=== PATIENT | female | born 1930 | race Caucasian/White ===

== ENCOUNTER 2017-04-01 01:17 | Inpatient (IN) ==
[2017-04-01] MEDS ORDERED: HALOPERIDOL 5 MG/ML INJECTION IM ONE ×2 (01:39→02:15)
--- OUTSIDE RECORDS SUMMARY | 2017-04-01 01:39 | External Medical Summary | Continuity of Care Document ---
:[address] [facility]. Care Team Providers Name Role Phone Flako Frederick Primary Care Physician Unavailable Insurance Providers Payer Name Policy Number Subscriber Name Relationship MEDICARE INPT & OUTPT [id number] ROSANA FOSTER SELF / SAME PATIENT [facility] [id number] ROSANA FOSTER SELF / SAME PATIENT Advance Directives Directive Response Recorded Date/Time Advance Directives: Yes 09/29/14 0:41am Type: Durable Power of Business Info Consultant 09/29/14 0:41am Chief Complaint and Reason for Visit Reason for Visit ER ADMIT Problems Medical Problems Problem Onset Date Status Dehydration Unknown Active Vertigo Unknown Active Atrial fibrillation Unknown Active Dehydration Unknown Active Headache Unknown Active Weakness Unknown Active Bradycardia Unknown Active Dizziness 05/06/14 Active Near syncope 05/06/14 Active Dementia 05/06/14 Active Closed left hip fracture Unknown Active Medications Medication Dose Route Sig Days/Qty Instructions Order Discontinued Status Date Date Hctz/Triamtere 1 CAP ORAL Twice 07/02/07 Discontin ne (Dyazide) daily ued 25 MG/37.5 MG CAPSULE Levothyroxine 38 MCG ORAL 0700 07/02/07 Discontin Sodium ued (Synthroid) TABLET Metoprolol 25 MG ORAL Once 07/02/07 Discontin Succinate daily ued (Toprol Xl) [address] Clopidogrel 75 MG ORAL Once 07/02/07 Discontin Bisulfate daily ued (Plavix) TABLET Potassium 10 MEQ ORAL Three 07/02/07 Discontin Chloride times ued (Potassium daily Chloride 10MEQ) 10 MEQ CAPSULE.SA Atorvastatin 10 MG ORAL Once 07/02/07 Discontin (Lipitor) 10 daily ued MG TABLET Fish Oil (Fish 1,000 ORAL Once 07/31/13 Discontin Oil MG daily ued Concentrate) 1,000 MG SGL Hctz/Triamtere 2 CAP ORAL Twice 07/06/07 Discontin ne (Dyazide) daily ued 25 MG/37.5 MG CAPSULE Levothyroxine 0.088 ORAL Once Active (Synthroid) MG daily 0.088 MG TABLET Metoprolol 25 MG ORAL Once 02/21/14 Discontin Succinate daily ued (Toprol Xl) [address] Clopidogrel 75 MG ORAL Once 05/06/14 Discontin Bisulfate daily ued (Plavix) TABLET Potassium 10 MEQ ORAL Three W/ MEALS 07/06/07 Discontin Chloride times ued (Klor-Con) 10 daily MEQ TABLET.SA Atorvastatin 10 MG ORAL At Active (Lipitor) 10 bedtim MG TABLET e Calcium 1 TAB ORAL Twice PRN 07/06/07 Discontin Carbonate/Famo daily ued tidine (Pepcid Complete) 800 MG/10 MG CTB Calcium 2 TAB ORAL Once 07/31/13 Discontin Carbonate/Anna daily ued min D (Caltrate 600 + D 600 Mg-200 Iu) 1 TAB TAB Acetaminophen 500 MG ORAL As 07/31/13 Discontin (Tylenol Extra needed ued Strength) 500 MG TABLET Multivitamin 1 TAB ORAL Once 07/31/13 Discontin And Minerals4 daily ued (Centrum Multivitamin) 1 TAB TAB Cephalexin 500 MG ORAL As TAKES BEFORE 02/11/14 Discontin (Keflex *) 500 needed DENTAL AND ued MG CAPSULE OTHER INVASIVE PROCEDURES Hctz/Triamtere 2 CAP ORAL QAM 07/28/07 Discontin ne (Dyazide) ued 25 MG/37.5 MG CAPSULE Calcium 1 TAB ORAL Once 02/11/14 Discontin Carbonate/Famo daily ued tidine (Pepcid Complete) 800 MG/10 MG CTB Spironolactone 25 MG ORAL Once 07/31/13 Discontin (Aldactone daily ued 25MG) 25 MG TABLET Potassium 20 MEQ ORAL Once 07/28/07 Discontin Chloride daily ued (Kdur) 20 MEQ TABLET [DIAZIDE] MG ORAL QAM 07/28/07 Discontin ued Valsartan 80 MG ORAL Daily 07/31/13 Discontin (Diovan 80MG) at ued 80 MG TAB bedtim e Hctz/Triamtere 1 CAP ORAL QAM 02/19/14 Discontin ne (Dyazide) ued 25 MG/37.5 MG CAPSULE Diphenhydramin 25-50 ORAL QHS 08/09/08 Discontin e Hcl MG PRN ued (Benadryl) CAPSULE Spironolactone 25 MG ORAL Once 10/04/14 Discontin (Aldactone) 25 daily ued MG TABLET Gabapentin At Active (Neurontin) bedtim 100 MG CAPSULE e Losartan 25 MG ORAL At 02/21/14 Discontin (Cozaar) 25 MG bedtim ued TABLET e Aspirin 81 MG ORAL Once a Hold per 10/04/14 Discontin (Aspirin day patient ued Chewable) 81 request for MG TAB.CHEW choice of OTC or fill as prescription. Multivitamin 1 CAP ORAL Once a 05/06/14 Discontin (Multiple day ued Vitamins) 1 CAP CAP Fish Oil 500 500 MG ORAL Once a 05/06/14 Discontin MG CAP day ued Calcium 1 CAP ORAL Once a 05/06/14 Discontin Carbonate/Anna day ued min D (Calcium) 1 CAP CAP FLUoxetine 20 MG ORAL Once a Active (PROzac) 20 MG day CAPSULE Apixaban 5 MG ORAL Twice 10/04/14 Discontin (Eliquis) 5 MG daily ued TABLET Dronedarone 400 MG ORAL Twice Active (Multaq) 400 daily MG TABLET with food Rivastigmine 4.6 MG TRANSDERM Once a Active (Exelon Patch) AL day 4.6 MG PATCH Magnesium 30 ML ORAL PRN Active Hydroxide/Mine Consti ral (Milk Of pation Magnesia/Biologics Specialist al Oil 30 Ml) 30 ML LIQ Acetaminophen 325 MG ORAL Four Hold per Active (Tylenol) 325 times patient MG TABLET a day request for PRN choice of OTC Pain or fill as prescription. Meclizine 12.5 ORAL PRN Active (Antivert) MG DIZZIN 12.5 MG TABLET ESS Multivitamin 1 TAB ORAL Active And [id number] (Multiple Vitamin W/Minerals No Iron) 1 TAB TAB Meclizine 25 MG ORAL TID 30 Qty TAKE FOR 08/04/ 07/31/13 Discontin (Antivert) 25 PRN DIZZINESS 13 ued MG TABLET Ondansetron 4 MG ORAL Q 6 HR 14 Qty TAKE FOR 08/04/ / Discontin (Zofran) 4 MG PRN NAUSEA 13 ued TABLET Meclizine 25 MG ORAL Three 10 Qty 02/21/ 03/04/14 Discontin (Antivert) 25 times 14 ued MG TABLET daily Aspirin/Calciu 325 MG ORAL Twice 60 Qty 10/04/ Active m daily 15 Carb/Magnesium (Aspirin Buffered) 325 MG HYDROcodone/Ac 1 ORAL Every 15 Qty 10/04/ Active etaminophen UDTAB four 15 (Dunlevy) 5 hours MG/325 MG PRN TABLET PAIN Calcium 500 MG ORAL Once a 30 Qty 10/04/ Active Carbonate day 15 (Oscal 500 Tablets) 500 MG TABLET Ascorbic Acid 500 MG ORAL Once a 30 Qty 10/04/ Active (Vitamin C) day 15 500 MG TABLET Apixaban 5 MG ORAL Twice 60 Qty DO NOT TAKE 10/04/ Active (Eliquis) 5 MG daily UNTIL OCTOBER 17 TABLET 10. 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 You should not take your eliquis for 10 days after surgery. You should restart your eliquis on October 12. Appointment Information Follow-up with PCP in 1 week. Follow-up with Ortho per their recommendations. Plan of Care Discharge Date 10/04/14 1:32pm Disposition [facility]FER [facility] Instructions/Education Provided Hydrocodone/Acetaminophen (By mouth) Aspirin (By mouth) Ascorbic Acid (Vitamin C) (By mouth) Calcium/Vitamin D Supplement (By mouth) Apixaban (By mouth) Open Reduction and Internal Fixation of a Hip Fracture (DC) Forms Provided Certification-Skilled Care Transfer,Interagency-Physician Prescriptions See Medications Section Referrals [facility]ACTICE 10/10/14 [facility] 10/17/14 [facility] Mcke[facility] Functional Status Query Response Date Recorded Paralysis: N October 03, 2014 8:37pm Steady Gait: Y October 04, 2014 9:05am Weakness: Y March 10, 2007 3:23pm 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 Equal: Y October 04, 2014 9:05am Contractures: N October 03, 2014 8:37pm Alert: Y October 26, 2004 5:27pm Oriented x4: N October 03, 2014 8:37pm Disoriented/Confused: Y October 04, 2014 9:05am Drowsy: N October 03, 2014 8:37pm Lethargic: N October 03, 2014 8:37pm Unresponsive: N October 03, 2014 8:37pm Allergies, Adverse Reactions, Alerts Allergen Type Severity Reaction Status Last Updated SULFA (sulfonamide) Allergy Unknown Active 03/02/14 Trimethoprim Allergy Unknown Active 03/02/14 Sulfamethoxazole Allergy Unknown Active 03/02/14 VIOXX Allergy Unknown Active 11/22/11 Immunizations Name Date Given Type Tetanus More than 5 years ago Historical Hepatitis N Historical Vital Signs Vital Reading Collection Date/Time Result Blood Pressure 10/04/14 11:59am 147/70 Blood Pressure Source 10/04/14 11:59am SI Patient Temperature 10/04/14 11:59am 97.0 Temperature Source 10/04/14 11:59am O Respiratory Rate 10/04/14 11:59am 24 Pulse Rate 10/04/14 11:59am 84 Pulse Location 10/04/14 11:59am DYN Bedside Pulse Oximetry 10/04/14 11:59am 97 Height 10/04/14 11:59am 170.2 cm Height 10/04/14 11:59am 5 ft 7 in Weight 10/04/14 11:59am 65.6 kg Weight 10/04/14 11:59am 144.3 lb Body Mass Index 10/04/14 11:59am 22.6 Procedures No Known History of Procedures. Results Test Source Date Result Interp. Ref. Range Comments Basophils # 09/28/14 0.0 0.0 - 0.2 Basophils % 09/28/14 0.6 % 0.0 - 2.0 Eosinophils # 09/28/14 0.1 0.0 - 0.7 Eosinophils % 09/28/14 1.0 % 0 - 4.0 Granulocytes # 09/28/14 4.2 1.4 - 6.5 Granulocytes (%) 09/28/14 61.9 % 42.2 - 75.2 Lymphocytes # 09/28/14 1.7 1.2 - 3.4 Lymphocytes % 09/28/14 25.5 % 20.0 - 51.0 Monocytes # 09/28/14 0.7 H 0.1 - 0.6 Monocytes % 09/28/14 10.3 % H 1.7 - 9.3 Alanine 09/28/14 31 U/L 9 - 52 Aminotransferase (ALT/SGPT) Albumin 09/28/14 3.8 gm/dL 3.5 - 5.0 Alkaline Phosphatase 09/28/14 120 U/L 50 - 136 Aspartate Amino Transf 09/28/14 34 U/L 15 - 37 (AST/SGOT) Calcium Adjusted for 09/28/14 9.4 mg/dL 8.4 - 10.2 Albumin Serum Total Protein 09/28/14 6.5 gm/dL 6.4 - 8.2 Total Bilirubin 09/28/14 0.5 mg/dL 0.0 - 1.0 Urine Appearance 09/28/14 CLEAR - Urine Bacteria 09/28/14 PRESENT H NOT PRESENT - Urine Bilirubin 09/28/14 NEGATIVE NEGATIVE - Urine Blood 09/28/14 NEGATIVE NEGATIVE - Urine Collection Type 09/28/14 CATHETER - Urine Color 09/28/14 YELLOW - Urine Epithelial Cells 09/28/14 RARE /lpf FEW - Urine Glucose 09/28/14 NEGATIVE mg/dL - Urine Ketones 09/28/14 NEGATIVE NEGATIVE - Urine Leukocyte 09/28/14 NEGATIVE NEGATIVE - Esterase Urine Nitrate 09/28/14 NEGATIVE NEGATIVE - Urine Protein 09/28/14 NEGATIVE mg/dL NEGATIVE - Urine RBC 09/28/14 0-3 /hpf 0 - 3 Urine Specific [place] 09/28/14 1.020 1.001 - 1.035 Urine Total Volume 09/28/14 12 mL - Urine Urobilinogen 09/28/14 NORMAL NORMAL - Urine WBC 09/28/14 0-3 /hpf 0 - 3 Urine pH 09/28/14 5.0 5.0 - 8.0 INR International 09/29/14 1.1 0.8 - 3.0 Normalized Ratio Prothrombin Time 09/29/14 12.8 SECONDS 9.7 - 12.8 Hematocrit 10/04/14 31.6 % L 37.0 - 47.0 Hemoglobin 10/04/14 10.8 g/dl L 12.5 - 16.0 Mean Corpuscular 10/04/14 31 pg 27.0 - 31.0 Hemoglobin Mean Corpuscular 10/04/14 34 g/dl 33.0 - 37.0 Hemoglobin Concent Mean Corpuscular Volume 10/04/14 90 fl 80.0 - 100.0 Mean Platelet Volume 10/04/14 10.4 fl 7.4 - 10.4 Platelet Count 10/04/14 148 K/mm3 130 - 400 Red Blood Count 10/04/14 3.50 M/mm3 L 4.10 - 5.30 Red Cell Distribution 10/04/14 13.9 % 11.5 - 14.5 Width White Blood Count 10/04/14 7.4 K/mm3 4.8 - 10.8 Anion Gap 10/04/14 5 mmol/L L 7 - 16 Blood Urea Nitrogen 10/04/14 26 mg/dL H 7 - 17 Calcium Level 10/04/14 8.4 mg/dL 8.4 - 10.2 Carbon Dioxide Level 10/04/14 29 mmol/L 22 - 30 Chloride Level 10/04/14 100 mmol/L 98 - 107 Creatinine 10/04/14 0.84 mg/dL 0.52 - 1.04 Estimated GFR ( 10/04/14 77 - Mauritian) Estimated GFR 10/04/14 64 - (Non- Glucose Level 10/04/14 103 mg/dL 74 - 106 Potassium Level 10/04/14 3.6 mmol/L 3.4 - 5.0 Sodium Level 10/04/14 134 mmol/L L 137 - 145 Basophils # 09/28/14 0.0 0.0 - 0.2 Basophils % 09/28/14 0.6 % 0.0 - 2.0 Eosinophils # 09/28/14 0.1 0.0 - 0.7 Eosinophils % 09/28/14 1.0 % 0 - 4.0 Granulocytes # 09/28/14 4.2 1.4 - 6.5 Granulocytes (%) 09/28/14 61.9 % 42.2 - 75.2 Lymphocytes # 09/28/14 1.7 1.2 - 3.4 Lymphocytes % 09/28/14 25.5 % 20.0 - 51.0 Monocytes # 09/28/14 0.7 H 0.1 - 0.6 Monocytes % 09/28/14 10.3 % H 1.7 - 9.3 Alanine 09/28/14 31 U/L 9 - 52 Aminotransferase (ALT/SGPT) Albumin 09/28/14 3.8 gm/dL 3.5 - 5.0 Alkaline Phosphatase 09/28/14 120 U/L 50 - 136 Aspartate Amino Transf 09/28/14 34 U/L 15 - 37 (AST/SGOT) Calcium Adjusted for 09/28/14 9.4 mg/dL 8.4 - 10.2 Albumin Serum Total Protein 09/28/14 6.5 gm/dL 6.4 - 8.2 Total Bilirubin 09/28/14 0.5 mg/dL 0.0 - 1.0 Urine Appearance 09/28/14 CLEAR - Urine Bacteria 09/28/14 PRESENT H NOT PRESENT - Urine Bilirubin 09/28/14 NEGATIVE NEGATIVE - Urine Blood 09/28/14 NEGATIVE NEGATIVE - Urine Collection Type 09/28/14 CATHETER - Urine Color 09/28/14 YELLOW - Urine Epithelial Cells 09/28/14 RARE /lpf FEW - Urine Glucose 09/28/14 NEGATIVE mg/dL - Urine Ketones 09/28/14 NEGATIVE NEGATIVE - Urine Leukocyte 09/28/14 NEGATIVE NEGATIVE - Esterase Urine Nitrate 09/28/14 NEGATIVE NEGATIVE - Urine Protein 09/28/14 NEGATIVE mg/dL NEGATIVE - Urine RBC 09/28/14 0-3 /hpf 0 - 3 Urine Specific [place] 09/28/14 1.020 1.001 - 1.035 Urine Total Volume 09/28/14 12 mL - Urine Urobilinogen 09/28/14 NORMAL NORMAL - Urine WBC 09/28/14 0-3 /hpf 0 - 3 Urine pH 09/28/14 5.0 5.0 - 8.0 INR International 09/29/14 1.1 0.8 - 3.0 Normalized Ratio Prothrombin Time 09/29/14 12.8 SECONDS 9.7 - 12.8 Hematocrit 10/04/14 31.6 % L 37.0 - 47.0 Hemoglobin 10/04/14 10.8 g/dl L 12.5 - 16.0 Mean Corpuscular 10/04/14 31 pg 27.0 - 31.0 Hemoglobin Mean Corpuscular 10/04/14 34 g/dl 33.0 - 37.0 Hemoglobin Concent Mean Corpuscular Volume 10/04/14 90 fl 80.0 - 100.0 Mean Platelet Volume 10/04/14 10.4 fl 7.4 - 10.4 Platelet Count 10/04/14 148 K/mm3 130 - 400 Red Blood Count 10/04/14 3.50 M/mm3 L 4.10 - 5.30 Red Cell Distribution 10/04/14 13.9 % 11.5 - 14.5 Width White Blood Count 10/04/14 7.4 K/mm3 4.8 - 10.8 Anion Gap 10/04/14 5 mmol/L L 7 - 16 Blood Urea Nitrogen 10/04/14 26 mg/dL H 7 - 17 Calcium Level 10/04/14 8.4 mg/dL 8.4 - 10.2 Carbon Dioxide Level 10/04/14 29 mmol/L 22 - 30 Chloride Level 10/04/14 100 mmol/L 98 - 107 Creatinine 10/04/14 0.84 mg/dL 0.52 - 1.04 Estimated GFR ( 10/04/14 77 - Mauritian) Estimated GFR 10/04/14 64 - (Non- Glucose Level 10/04/14 103 mg/dL 74 - 106 Potassium Level 10/04/14 3.6 mmol/L 3.4 - 5.0 Sodium Level 10/04/14 134 mmol/L L 137 - 145 Cholesterol Level 09/08/14 148 mg/dL 120 - 200 Cholesterol Risk Factor 09/08/14 1.7 - Free Thyroxine 09/08/14 1.06 ng/dL 0.78 - 2.19 HDL Cholesterol 09/08/14 84 mg/dL - LDL Cholesterol, 09/08/14 55 mg/dL - Calculated Thyroid Stimulating 09/08/14 2.190 uIU/mL 0.465 - 4.680 Hormone (TSH) Triglycerides Level 09/08/14 45 mg/dL - Hemoglobin A1c 09/08/14 5.6 % - Encounters Encounter Location Date/Time Discharged Inpatient [facility] 10/04/14 1:32pm Discharged Emergency [facility] 09/28/14 9:13pm Registered Clinical [facility] 09/28/14 6:12pm Registered Clinical [facility] 09/08/14 9:54am Recent Diagnosis Dehydration Vertigo Atrial fibrillation Dehydration Headache Weakness Bradycardia Dizziness Near syncope Dementia Closed left hip fracture
--- OUTSIDE RECORDS SUMMARY | 2017-04-01 01:39 | External Medical Summary | Continuity of Care Document ---
:1930 Author Organization [facility]. Care Team Providers Name Role Phone Flako Frederick Primary Care Physician Insurance Providers Payer Name Policy Number Subscriber Name Relationship MEDICARE INPT & OUTPT [id number] ROSANA FOSTER SELF / SAME PATIENT [facility] [id number] ROSANA FOSTER SELF / SAME PATIENT Advance Directives Directive Response Recorded Date/Time Advance Directives: Yes 07/10/16 9:58pm Type: Durable Power of [employer] Program Director 07/10/16 9:58pm Chief Complaint and Reason for Visit Reason for Visit ER ADMIT Problems Active Medical Problems Problem Onset Date Recorded Date Status Dehydration Unknown 11/22/11 Active Vertigo Unknown 08/04/12 Active Atrial fibrillation Unknown 07/31/13 Active Dehydration Unknown 02/11/14 Active Headache Unknown 02/11/14 Active Weakness Unknown 02/11/14 Active Bradycardia Unknown 02/19/14 Active Dizziness 05/06/14 02/21/14 Active Near syncope 05/06/14 03/02/14 Active Dementia 05/06/14 05/06/14 Active Closed left hip fracture Unknown 09/28/14 Active Bronchitis Unknown 05/19/15 Active Cough Unknown 05/19/15 Active Hip pain Unknown 11/08/15 Active Fall Unknown 11/08/15 Active Elevated blood pressure Unknown 11/08/15 Resolved Contusion, hip Unknown 11/28/15 Resolved Atrial fibrillation Unknown 04/01/16 Resolved Contusion of lower back Unknown 05/18/16 Active Hematoma Unknown 05/19/16 Active Personal history of fall Unknown 07/05/16 Active Change in mental status Unknown 07/10/16 Active Medications Current Home Medications Medication Dose Units Route Directions Days/Qty Instructions Start Date Acetaminophen 650 MG PO Twice daily Hold per patient (Tylenol) 325 MG request for TABLET choice of OTC or fill as prescription. Acetaminophen 1-2 TAB PO Every four hours Hold per patient (Tylenol) 325 MG PRN PAIN request for TABLET choice of OTC or fill as prescription. Amiodarone 200 MG PO Twice daily (Cordarone) 200 MG TABLET Amoxicillin 2,000 MG PO One Time Only (Amoxil*) 500 MG PRN DENTAL CAPSULE PROCEDURE Aspirin (Aspirin 81 MG PO Once daily Hold per patient Chewable) 81 MG request for TAB.CHEW choice of OTC or fill as prescription. Atorvastatin 10 MG PO Once daily (Lipitor) 10 MG TABLET FLUoxetine 20 MG PO Once a day (PROzac) 20 MG CAPSULE Gabapentin 100 MG PO Once a day PRN (Neurontin) 100 ANXIETY/AGITATIO MG CAPSULE N HYDROcodone/Aceta 1-2 TAB PO Q4-6 HR PRN PAIN 15 05/18/16 minophen ([place]) 5 MG/325 MG TABLET HYDROcodone/Aceta 1-2 TAB PO Q4-6 HR PRN Pain 20 07/12/16 minophen ([place]) 5 MG/325 MG TABLET Haloperidol 0.5 MG PO QD PRN PRN (Haldol) 0.5 MG AGITATION TABLET Haloperidol 1 MG PO Once a day (Haldol) 1 MG TABLET Levothyroxine 0.075 MG PO Once a day at 7 (Synthroid) 0.075 AM (Fasting) MG TABLET Magnesium 30 ML PO As needed PRN Hydroxide (Milk constipation of Magnesia) 400 MG/5 ML JAYDA Meclizine 12.5 MG PO Twice daily PRN (Antivert) 12.5 DIZZINESS MG TABLET QUEtiapine 25 MG PO .[Q HS] 30 07/12/16 (SEROquel) 25 MG TABLET QUEtiapine 12.5 MG PO Twice daily 60 At breakfast and 07/12/16 (SEROquel) 25 MG noon TABLET Rivastigmine 13.3 MG TD Once a day (Exelon Patch) 13.3 MG PATCH amLODIPine 5 MG PO Once a day 30 07/12/16 (Norvasc) 5 MG TABLET traZODone 50 MG PO Daily at bedtime 30 07/12/16 (Desyrel) 50 MG PRN Insomnia TABLET Past Home Medications Medication Directions Ordered Status Acetaminophen (Tylenol Extra As needed Unknown Discontinued Strength) 500 Mg Tablet Tablet, 500 Mg Po Acetaminophen (Tylenol) 325 Mg Four times a day PRN Pain Unknown Discontinued Tablet Tablet, 325 Mg Po Apixaban (Eliquis) 5 Mg Tablet Twice daily 10/04/14 Discontinued Tablet, 5 Mg Po Apixaban (Eliquis) 5 Mg Tablet Twice daily Unknown Discontinued Tablet, 5 Mg Po Ascorbic Acid (Vitamin C) 500 Mg Unknown Discontinued Tablet Tablet, 500 Mg Po Ascorbic Acid (Vitamin C) 500 Mg Once a day 10/04/14 Discontinued Tablet Tablet, 500 Mg Po Aspirin (Aspirin Chewable) 81 Mg Once a day Unknown Discontinued Tab.chew Tab.chew, 81 Mg Po Aspirin, Buffered (Aspirin Twice daily 10/04/14 Discontinued Buffered) 325 Mg Tablet Tablet, 325 Mg Po Atorvastatin (Lipitor) 10 Mg At bedtime Unknown Discontinued Tablet Tablet, 10 Mg Po Atorvastatin (Lipitor) 10 Mg Once daily Unknown Discontinued Tablet Tablet, 10 Mg Po Biotin/Ca/Ca Pantothenate/Cr Once daily Unknown Discontinued (Centrum Multivitamin) 1 Tab Tab Tab, 1 Tab Po Benzonatate (Tessalon Perles) 100 Every eight hours as needed 05/19/15 Discontinued Mg Sgl Sgl, 100 Mg Po PRN cough Calcium Carbonate (Oscal 500) 500 Once a day 10/04/14 Discontinued Mg Tablet Tablet, 500 Mg Po Calcium Carbonate/Famotidine Once daily Unknown Discontinued (Pepcid Complete) 800 Mg/10 Mg Ctb Ctb, 1 Tab Po Calcium Carbonate/Famotidine Twice daily Unknown Discontinued (Pepcid Complete) 800 Mg/10 Mg Ctb Ctb, 1 Tab Po Calcium Carbonate/Vitamin D Once a day Unknown Discontinued (Calcium) 1 Cap Cap Cap, 1 Cap Po Calcium Carbonate/Vitamin D3 Once daily Unknown Discontinued (Caltrate D) 600 Mg/200 Units Tablet Tablet, 2 Tab Po Cephalexin (Keflex *) 500 Mg As needed Unknown Discontinued Capsule Capsule, 500 Mg Po Clopidogrel Bisulfate (Plavix) Once daily Unknown Discontinued Tablet Tablet, 75 Mg Po Clopidogrel Bisulfate (Plavix) Once daily Unknown Discontinued Tablet Tablet, 75 Mg Po [Diazide] , Mg Po QAM Unknown Discontinued Diphenhydramine Hcl (Benadryl) QHS PRN Unknown Discontinued Capsule Capsule, 25-50 Mg Po Dronedarone (Multaq) 400 Mg Twice daily with food Unknown Discontinued Tablet Tablet, 400 Mg Po Fish Oil (Fish Oil Concentrate) Once daily Unknown Discontinued 1,000 Mg Sgl Sgl, 1,000 Mg Po Fish Oil 500 Mg Cap Cap, 500 Mg Once a day Unknown Discontinued Po Gabapentin (Neurontin) 100 Mg Once daily Unknown Discontinued Capsule Capsule, 100 Mg Po Gabapentin (Neurontin) 100 Mg At bedtime Unknown Discontinued Capsule Capsule, Hydrocodone/Acetaminophen ([place]) Every four hours PRN PAIN 10/04/14 Discontinued 5 Mg/325 Mg Tablet Tablet, 1 Udtab Po Haloperidol (Haldol) 1 Mg Tablet Every eight hours PRN Unknown Discontinued Tablet, 1 Mg Po AGITATION Hctz/Triamterene (Dyazide) 25 QAM Unknown Discontinued Mg/37.5 Mg Capsule Capsule, 1 Cap Po Hctz/Triamterene (Dyazide) 25 QAM Unknown Discontinued Mg/37.5 Mg Capsule Capsule, 2 Cap Po Hctz/Triamterene (Dyazide) 25 Twice daily Unknown Discontinued Mg/37.5 Mg Capsule Capsule, 2 Cap Po Hctz/Triamterene (Dyazide) 25 Twice daily Unknown Discontinued Mg/37.5 Mg Capsule Capsule, 1 Cap Po Levothyroxine (Synthroid) 0.088 Once daily Unknown Discontinued Mg Tablet Tablet, 0.088 Mg Po Levothyroxine Sodium (Synthroid) 0700 Unknown Discontinued Tablet Tablet, 38 Mcg Po Losartan (Cozaar) 25 Mg Tablet At bedtime Unknown Discontinued Tablet, 25 Mg Po Magnesium Hydroxide (Milk Of Once a day PRN CONSTIPATION Unknown Discontinued Magnesia) 400 Mg/5 Ml Jayda Jayda, 30 Ml Po Magnesium Hydroxide/Mineral PRN Constipation Unknown Discontinued (Milk Of Magnesia/Mineral Oil 30 Ml) 30 Ml Liq Liq, 30 Ml Po Meclizine (Antivert) 12.5 Mg PRN DIZZINESS Unknown Discontinued Tablet Tablet, 12.5 Mg Po Meclizine (Antivert) 25 Mg Tablet Three times daily 02/21/14 Discontinued Tablet, 25 Mg Po Meclizine (Antivert) 25 Mg Tablet TID PRN 08/04/12 Discontinued Tablet, 25 Mg Po Metoprolol (Er) Succinate (Toprol Twice daily Unknown Discontinued Xl) 25 Mg Tablet Tablet, 25 Mg Po Metoprolol Succinate (Toprol Xl) Once daily Unknown Discontinued [address], 25 Mg Po Metoprolol Succinate (Toprol Xl) Once daily Unknown Discontinued [address], 25 Mg Po Multimineral/Multivitamin Unknown Discontinued (Multiple Vitamin W/Minerals No Iron) 1 Tab Tab Tab, 1 Tab Po Multivitamin (Multiple Vitamins) Once a day Unknown Discontinued 1 Cap Cap Cap, 1 Cap Po Ondansetron (Zofran) 4 Mg Tablet Q 6 HR PRN 08/04/12 Discontinued Tablet, 4 Mg Po Potassium Chloride (Kdur) 20 Meq Once daily Unknown Discontinued Tablet Tablet, 20 Meq Po Potassium Chloride (Klor-Con) 10 Three times daily Unknown Discontinued Meq Tablet.sa Tablet.sa, 10 Meq Po Potassium Chloride (Potassium Three times daily Unknown Discontinued Chloride 10MEQ) 10 Meq Capsule.sa Capsule.sa, 10 Meq Po Rivastigmine (Exelon Patch) 13.3 Once a day Unknown Discontinued Mg Patch Patch, 13.3 Mg Rivastigmine (Exelon Patch) 4.6 Once a day Unknown Discontinued Mg Patch Patch, 4.6 Mg Td Spironolactone (Aldactone 25MG) Once daily Unknown Discontinued 25 Mg Tablet Tablet, 25 Mg Po Spironolactone (Aldactone) 25 Mg Once daily Unknown Discontinued Tablet Tablet, 25 Mg Po Valsartan (Diovan 80MG) 80 Mg Tab Daily at bedtime Unknown Discontinued Tab, 80 Mg Po Vitamin E (Grx Vitamin E) 1,000 Unknown Discontinued Iu Cre Cre, 1,000 Iu Tp Levofloxacin (Levaquin) 500 Mg Once a day 05/19/15 Discontinued Tablet Tablet, 500 Mg Po Family History Relationship Name Date of Condition Age ( Cause Age ( Age Gender Recorded At of At Date/Time Onset ) ) MOTHER Family history: F 04/01/16 Cardiovascular 2223 disease FATHER Family history: M 04/01/16 Cardiovascular 2223 disease Social History Problem Response Recorded Date Exposure to Occupational hazards: N 07/10/16 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 STARTED AMLODIPINE ONCE DAILY. CONTINUE SEROQUEL TID, TRAZADONE PRN STARTED BY PSYCHIATRY. HOLD BETA RACHEL HEART RATE BORDERLINE LOW. Appointment Information FOLLOW-UP WITH PCP WITHIN 1 WEEK. FOLLOW-UP WITH PSYCHIATRY PER RECOMMENDATIONS. Activity Guidelines PT/OT TO EVALUATE AND TREAT. 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 Equal: Y July 12, 2016 8:25am Contractures: N July 12, 2016 8:25am Alert: Y October 26, 2004 5:27pm Oriented x4: N July 12, 2016 8:25am Disoriented/Confused: Y July 12, 2016 8:25am Drowsy: N July 12, 2016 8:25am Lethargic: N July 12, 2016 8:25am Unresponsive: N July 12, 2016 8:25am Allergies, Adverse Reactions, Alerts Allergen Type Severity Reaction Status Last Updated Sulfa (Sulfonamide Antibiotics) Allergy Unknown Active 07/10/16 sulfamethoxazole Allergy Unknown Active 07/10/16 trimethoprim Allergy Unknown Active 07/10/16 rofecoxib Allergy Unknown Active 07/10/16 Immunizations Name Date Given Type Hepatitis N Historical Vital Signs Vital Reading Collection Date/Time Result Blood Pressure 07/12/16 7:01pm 126/44 Blood Pressure Source 07/12/16 7:01pm Sitting Patient Temperature 07/12/16 7:01pm 97.9 Temperature Source 07/12/16 7:01pm Oral Respiratory Rate 07/12/16 7:01pm 21 Pulse Rate 07/12/16 7:01pm 56 Pulse Location 07/12/16 7:01pm Dynamap Bedside Pulse Oximetry 07/12/16 7:01pm 92 Height 07/12/16 7:01pm 172.7 cm Height 07/12/16 7:01pm 5 ft 8.04 in Weight 07/12/16 7:01pm 54 kg Weight 07/12/16 7:01pm 119 lb 0.79 oz Body Mass Index 07/12/16 7:01pm 18.1 Results Laboratory Results Test Name Result Units Flags Reference Collection Result Comments Date/Time Date/Time Urine Collection CATHETER 07/10/16 07/10/16 Type 4:10pm 5:19pm Urine Color S[place]ma 07/10/16 07/10/16 4:10pm 5:26pm Urine Appearance Turbid 07/10/16 07/10/16 4:10pm 5:26pm Urine Specific 1.030 1.005-1.035 07/10/16 07/10/16 [place] 4:10pm 5:26pm Urine pH 5 5-8 07/10/16 07/10/16 4:10pm 5:26pm Urine Protein 1+ H NEGATIVE 07/10/16 07/10/16 4:10pm 5:26pm Urine Glucose Negative NEGATIVE 07/10/16 07/10/16 4:10pm 5:26pm Urine Ketones Negative NEGATIVE 07/10/16 07/10/16 4:10pm 5:26pm Urine Bilirubin Negative NEGATIVE 07/10/16 07/10/16 4:10pm 5:26pm Urine Urobilinogen 2.0 mg/dL H NEGATIVE 07/10/16 07/10/16 4:10pm 5:26pm Urine Nitrate Negative NEGATIVE 07/10/16 07/10/16 4:10pm 5:26pm Urine Blood Negative NEGATIVE 07/10/16 07/10/16 4:10pm 5:26pm Urine Leukocyte Negative NEGATIVE 07/10/16 07/10/16 Esterase 4:10pm 5:26pm Urine WBC 5-10 /hpf H 07/10/16 07/10/16 4:10pm 5:26pm Urine RBC 0-2 /hpf 07/10/16 07/10/16 4:10pm 5:26pm Urine Squamous 0-2 /hpf 07/10/16 07/10/16 Epithelial Cells 4:10pm 5:26pm Urine Mucus Present /lpf 07/10/16 07/10/16 4:10pm 5:26pm Urine Bacteria None Seen /hpf 07/10/16 07/10/16 4:10pm 5:26pm Urine Hyaline 1-3 /lpf 07/10/16 07/10/16 Casts 4:10pm 5:26pm White Blood Count 5.7 K/mm3 4.8-10.8 07/10/16 07/10/16 3:56pm 4:20pm Red Blood Count 4.60 M/mm3 4.10-5.30 07/10/16 07/10/16 3:56pm 4:20pm Hemoglobin 12.7 g/dl 12.5-16.0 07/10/16 07/10/16 3:56pm 4:20pm Hematocrit 39.9 % 37.0-47.0 07/10/16 07/10/16 3:56pm 4:20pm Mean Corpuscular 87 fl 80.0-100.0 07/10/16 07/10/16 Volume 3:56pm 4:20pm Mean Corpuscular 28 pg 27.0-31.0 07/10/16 07/10/16 Hemoglobin 3:56pm 4:20pm Mean Corpuscular 32 g/dl L 33.0-37.0 07/10/16 07/10/16 Hemoglobin Concent 3:56pm 4:20pm Red Cell 16.7 % H 11.5-14.5 07/10/16 07/10/16 Distribution Width 3:56pm 4:20pm Platelet Count 162 K/mm3 130-400 07/10/16 07/10/16 3:56pm 4:20pm Mean Platelet 9.9 fl 7.4-10.4 07/10/16 07/10/16 Volume 3:56pm 4:20pm Granulocytes (%) 71.4 % 42.2-75.2 07/10/16 07/10/16 3:56pm 4:20pm Lymphocytes % 17.5 % L 20.0-51.0 07/10/16 07/10/16 3:56pm 4:20pm Monocytes % 9.9 % H 1.7-9.3 07/10/16 07/10/16 3:56pm 4:20pm Eosinophils % 0.5 % 0-4.0 07/10/16 07/10/16 3:56pm 4:20pm Basophils % 0.5 % 0.0-2.0 07/10/16 07/10/16 3:56pm 4:20pm Granulocytes # 4.1 1.4-6.5 07/10/16 07/10/16 3:56pm 4:20pm Lymphocytes # 1.0 L 1.2-3.4 07/10/16 07/10/16 3:56pm 4:20pm Monocytes # 0.6 0.1-0.6 07/10/16 07/10/16 3:56pm 4:20pm Eosinophils # 0.0 0.0-0.7 07/10/16 07/10/16 3:56pm 4:20pm Basophils # 0.0 0.0-0.2 07/10/16 07/10/16 3:56pm 4:20pm Glucose Level 115 mg/dL H 74-106 07/10/16 07/10/16 3:56pm 4:46pm Blood Urea 22 mg/dL H 11-1807/10/16 07/10/16 Nitrogen 3:56pm 4:46pm Creatinine 1.17 mg/dL 0.52-1.25 07/10/16 07/10/16 3:56pm 4:46pm Estimated GFR 53 07/10/16 07/10/16 () 3:56pm 4:46pm Estimated GFR 44 07/10/16 07/10/16 eGFR Interpretation: (Non- 3:56pm 4:46pm [place] Chronic Kidney Disease=CKD CKD STAGE I > or=90 mL/min/1.73 square meters STAGE II 60 - 89 STAGE III 30 - 59 STAGE IV 15 - 29 STAGE V <15 NOTE: The MDRD Study equation has not been validated for use with the elderly (over 70 years of age), women, patients with serious comorbid conditions, or persons with extremes of body size, muscle mass, or nutritional status. Sodium Level 138 mmol/L 137-145 07/10/16 07/10/16 3:56pm 4:46pm Potassium Level 3.4 mmol/L 3.4-5.0 07/10/16 07/10/16 3:56pm 4:46pm Chloride Level 98 mmol/L 98-107 07/10/16 07/10/16 3:56pm 4:46pm Carbon Dioxide 31 mmol/L H 22-30 07/10/16 07/10/16 Level 3:56pm 4:46pm Anion Gap 9 mmol/L 7-07/10/16 07/10/16 3:56pm 4:46pm Calcium Level 9.4 mg/dL 8.4-10.2 07/10/16 07/10/16 3:56pm 4:46pm Calcium Adjusted 9.9 mg/dL 8.4-10.2 07/10/16 07/10/16 for Albumin 3:56pm 4:46pm Serum Total 6.0 gm/dL L 6.4-8.2 07/10/16 07/10/16 Protein 3:56pm 4:46pm Albumin 3.4 gm/dL L 3.5-5.0 07/10/16 07/10/16 3:56pm 4:46pm Total Bilirubin 0.8 mg/dL 0.0-1.0 07/10/16 07/10/16 3:56pm 4:46pm Aspartate Amino 45 U/L H 15-37 07/10/16 07/10/16 Transf (AST/SGOT) 3:56pm 4:46pm Alanine 53 U/L H 9-52 07/10/16 07/10/16 Aminotransferase 3:56pm 4:46pm (ALT/SGPT) Alkaline 74 U/L 50-136 07/10/16 07/10/16 Phosphatase 3:56pm 4:46pm Thyroid 1.460 uIU/mL 0.465-4.680 07/10/16 07/10/16 Stimulating 3:56pm 4:59pm Hormone (TSH) Acetaminophen < 10 ug/mL L 10-30 07/10/16 07/10/16 Level 3:56pm 4:46pm Salicylates Level < 1.0 mg/dL 07/10/16 07/10/16 Negative: <2 mg/dL 3:56pm 4:46pm Therapeutic: <20 mg/dL Toxic: >30 mg/dL Lethal: >60 mg/dL Plasma/Serum Blood < 10 mg/dL 07/10/16 07/10/16 Negative : <10 mg\dL Alcohol 3:56pm 4:46pm Toxic: 50-100 mg\dL Depression of DAY WORKER: >100 mg\dL Fatalities Reported: >400 mg\dL White Blood Count 6.8 K/mm3 4.8-10.8 07/05/16 07/05/16 9:50am 10:13am Red Blood Count 5.23 M/mm3 4.10-5.30 07/05/16 07/05/16 9:50am 10:13am Hemoglobin 14.3 g/dl 12.5-16.0 07/05/16 07/05/16 9:50am 10:13am Hematocrit 44.6 % 37.0-47.0 07/05/16 07/05/16 9:50am 10:13am Mean Corpuscular 85 fl 80.0-100.0 07/05/16 07/05/16 Volume 9:50am 10:13am Mean Corpuscular 27 pg L 27.0-31.0 07/05/16 07/05/16 Hemoglobin 9:50am 10:13am Mean Corpuscular 32 g/dl L 33.0-37.0 07/05/16 07/05/16 Hemoglobin Concent 9:50am 10:13am Red Cell 16.3 % H 11.5-14.5 07/05/16 07/05/16 Distribution Width 9:50am 10:13am Platelet Count 159 K/mm3 130-400 07/05/16 07/05/16 9:50am 10:13am Mean Platelet 9.8 fl 7.4-10.4 07/05/16 07/05/16 Volume 9:50am 10:13am Granulocytes (%) 76.2 % H 42.2-75.2 07/05/16 07/05/16 9:50am 10:13am Lymphocytes % 14.8 % L 20.0-51.0 07/05/16 07/05/16 9:50am 10:13am Monocytes % 7.9 % 1.7-9.3 07/05/16 07/05/16 9:50am 10:13am Eosinophils % 0.4 % 0-4.0 07/05/16 07/05/16 9:50am 10:13am Basophils % 0.6 % 0.0-2.0 07/05/16 07/05/16 9:50am 10:13am Granulocytes # 5.2 1.4-6.5 07/05/16 07/05/16 9:50am 10:13am Lymphocytes # 1.0 L 1.2-3.4 07/05/16 07/05/16 9:50am 10:13am Monocytes # 0.5 0.1-0.6 07/05/16 07/05/16 9:50am 10:13am Eosinophils # 0.0 0.0-0.7 07/05/16 07/05/16 9:50am 10:13am Basophils # 0.0 0.0-0.2 07/05/16 07/05/16 9:50am 10:13am Glucose Level 107 mg/dL H 74-106 07/05/16 07/05/16 9:50am 10:24am Blood Urea 16 mg/dL -07/05/16 07/05/16 Nitrogen 9:50am 10:24am Creatinine 0.81 mg/dL 0.52-1.25 07/05/16 07/05/16 9:50am 10:24am Estimated GFR 81 07/05/16 07/05/16 () 9:50am 10:24am Estimated GFR 67 07/05/16 07/05/16 eGFR Interpretation: (Non- 9:50am 10:24am [place] Chronic Kidney Disease=CKD CKD STAGE I > or=90 mL/min/1.73 square meters STAGE II 60 - 89 STAGE III 30 - 59 STAGE IV 15 - 29 STAGE V <15 NOTE: The MDRD Study equation has not been validated for use with the elderly (over 70 years of age), women, patients with serious comorbid conditions, or persons with extremes of body size, muscle mass, or nutritional status. Sodium Level 136 mmol/L L 137-145 07/05/16 07/05/16 9:50am 10:24am Potassium Level 3.6 mmol/L 3.4-5.0 07/05/16 07/05/16 9:50am 10:24am Chloride Level 98 mmol/L 98-107 07/05/16 07/05/16 9:50am 10:24am Carbon Dioxide 29 mmol/L 22-30 07/05/16 07/05/16 Level 9:50am 10:24am Anion Gap 10 mmol/L 7-07/05/16 07/05/16 9:50am 10:24am Calcium Level 9.7 mg/dL 8.4-10.2 07/05/16 07/05/16 9:50am 10:24am Calcium Adjusted 9.5 mg/dL 8.4-10.2 07/05/16 07/05/16 for Albumin 9:50am 10:24am Serum Total 7.2 gm/dL 6.4-8.2 07/05/16 07/05/16 Protein 9:50am 10:24am Albumin 4.2 gm/dL 3.5-5.0 07/05/16 07/05/16 9:50am 10:24am Total Bilirubin 1.4 mg/dL H 0.0-1.0 07/05/16 07/05/16 9:50am 10:24am Aspartate Amino 49 U/L H 15-37 07/05/16 07/05/16 Transf (AST/SGOT) 9:50am 10:24am Alanine 44 U/L 9-52 07/05/16 07/05/16 Aminotransferase 9:50am 10:24am (ALT/SGPT) Alkaline 88 U/L 50-136 07/05/16 07/05/16 Phosphatase 9:50am 10:24am Procedures No Known History of Procedures. Encounters Encounter Location Arrival/Admit Date Discharge/Depart Date Attending Provider Discharged [facility] 07/10/16 2:34pm 07/12/16 8:37pm [facility] Aminta Blanc Discharged [facility] 07/10/16 2:34pm 07/12/16 8:37pm [facility] Aminta Blanc Discharged [facility] 07/10/16 2:34pm 07/12/16 8:37pm [facility] Aminta Blanc Departed Via [facility] 07/05/16 8:34am 07/05/16 2:03pm [facility] Sienna Blanc Encounter Diagnosis Onset Date Dehydration Vertigo Atrial fibrillation Dehydration Headache Weakness Bradycardia Dizziness 05/06/14 Near syncope 05/06/14 Dementia 05/06/14 Closed left hip fracture Bronchitis Cough Hip pain Fall Elevated blood pressure Contusion, hip Atrial fibrillation Contusion of lower back Hematoma Personal history of fall Change in mental status
--- OUTSIDE RECORDS SUMMARY | 2017-04-01 01:39 | External Medical Summary | Continuity of Care Document ---
:1930 Author Organization [facility]. Care Team Providers Name Role Phone Flako Frederick Primary Care Physician Insurance Providers Payer Name Policy Number Subscriber Name Relationship MEDICARE INPT & OUTPT [id number] ROSANA FOSTER SELF / SAME PATIENT [facility] [id number] ROSANA FOSTER SELF / SAME PATIENT Advance Directives Directive Response Recorded Date/Time Advance Directives: Yes 11/28/15 1:36pm Type: Durable Power of Door To Door Fundraising Collector 09/29/14 0:41am Problems Active Medical Problems Problem Onset Date [...] 11/08/15 Active Elevated blood pressure Unknown 11/08/15 Active Contusion, hip Unknown 11/28/15 Active Medications Current Home Medications Medication Dose Units Route Directions Days/Qty Instructions Start Date Acetaminophen 325 MG PO Four times a day Hold per patient (Tylenol) 325 MG PRN Pain request for TABLET choice of OTC or fill as prescription. Amiodarone 200 MG PO (Cordarone) 200 MG TABLET Apixaban 5 MG PO Twice daily 60 DO NOT TAKE 10/04/14 (Eliquis) 5 MG UNTIL OCTOBER 12. TABLET Ascorbic Acid 500 MG PO (Vitamin C) 500 MG TABLET Aspirin, Buffered 325 MG PO Twice daily 60 10/04/14 (Aspirin Buffered) 325 MG TABLET Atorvastatin 10 MG PO At bedtime (Lipitor) 10 MG TABLET Calcium Carbonate 500 MG PO Once a day 30 10/04/14 (Oscal 500) 500 MG TABLET FLUoxetine 20 MG PO Once a day (PROzac) 20 MG CAPSULE Gabapentin At bedtime (Neurontin) 100 MG CAPSULE Levothyroxine 0.088 MG PO Once daily (Synthroid) 0.088 MG TABLET Magnesium 30 ML PO PRN Hydroxide/Mineral Constipation (Milk Of Magnesia/Mineral Oil 30 Ml) 30 ML LIQ Meclizine 12.5 MG PO PRN DIZZINESS (Antivert) 12.5 MG TABLET Rivastigmine 13.3 MG Once a day (Exelon Patch) 13.3 MG PATCH Vitamin E (Grx 1,000 IU TP Vitamin E) 1,000 IU CRE Past Home Medications Medication Directions Ordered Status Acetaminophen (Tylenol Extra As needed Unknown Discontinued Strength) 500 Mg Tablet Tablet, 500 Mg Po Apixaban (Eliquis) 5 Mg Tablet Twice daily Unknown Discontinued Tablet, 5 Mg Po Ascorbic Acid (Vitamin C) 500 Mg Once a day 10/04/14 Discontinued Tablet Tablet, 500 Mg Po Aspirin (Aspirin Chewable) 81 Mg Once a day Unknown Discontinued Tab.chew Tab.chew, 81 Mg Po Atorvastatin (Lipitor) 10 Mg Once daily Unknown Discontinued Tablet Tablet, 10 Mg Po Biotin/Ca/Ca Pantothenate/Cr Once daily Unknown Discontinued (Centrum Multivitamin) 1 Tab Tab Tab, 1 Tab Po Benzonatate (Tessalon Perles) 100 Every eight hours as needed 05/19/15 Discontinued Mg Sgl Sgl, 100 Mg Po PRN cough Calcium Carbonate/Famotidine Once daily Unknown Discontinued (Pepcid [...] 25-50 Mg Po Dronedarone (Multaq) 400 Mg Tablet Twice daily with food Unknown Discontinued Tablet, 400 Mg Po Fish Oil (Fish Oil Concentrate) Once daily Unknown Discontinued 1,000 Mg Sgl Sgl, 1,000 Mg Po Fish Oil 500 Mg Cap Cap, 500 Mg Po Once a day Unknown Discontinued Hydrocodone/Acetaminophen ([place]) Every four hours PRN PAIN 10/04/14 Discontinued 5 Mg/325 Mg Tablet Tablet, 1 Udtab Po Hctz/Triamterene (Dyazide) 25 QAM Unknown Discontinued Mg/37.5 Mg Capsule Capsule, 1 Cap Po Hctz/Triamterene (Dyazide) 25 QAM Unknown Discontinued Mg/37.5 Mg Capsule Capsule, 2 Cap Po Hctz/Triamterene (Dyazide) 25 Twice daily Unknown Discontinued Mg/37.5 Mg Capsule Capsule, 2 Cap Po Hctz/Triamterene (Dyazide) 25 Twice daily Unknown Discontinued Mg/37.5 Mg Capsule Capsule, 1 Cap Po Levothyroxine Sodium (Synthroid) 0700 Unknown Discontinued Tablet Tablet, 38 Mcg Po Losartan (Cozaar) 25 Mg Tablet At bedtime Unknown Discontinued Tablet, 25 Mg Po Meclizine (Antivert) 25 Mg Tablet Three times daily 02/21/14 Discontinued Tablet, 25 Mg Po Meclizine (Antivert) 25 Mg Tablet TID PRN 08/04/12 Discontinued Tablet, 25 Mg Po Metoprolol Succinate (Toprol Xl) Once daily Unknown Discontinued [address], 25 Mg Po Metoprolol Succinate (Toprol Xl) Once daily Unknown Discontinued [address], 25 Mg Po Multimineral/Multivitamin Unknown Discontinued (Multiple Vitamin W/Minerals No Iron) 1 Tab Tab Tab, 1 Tab Po Multivitamin (Multiple Vitamins) 1 Once a day Unknown Discontinued Cap Cap Cap, 1 Cap Po Ondansetron [...] Capsule.sa, 10 Meq Po Rivastigmine (Exelon Patch) 4.6 Mg Once a day Unknown Discontinued Patch Patch, 4.6 Mg Td Spironolactone (Aldactone 25MG) 25 Once daily Unknown Discontinued Mg Tablet Tablet, 25 Mg Po Spironolactone (Aldactone) 25 Mg Once daily Unknown Discontinued Tablet Tablet, 25 Mg Po Valsartan (Diovan 80MG) 80 Mg Tab Daily at bedtime Unknown Discontinued Tab, 80 Mg Po Levofloxacin (Levaquin) 500 Mg Once a day 05/19/15 Discontinued Tablet Tablet, 500 Mg Po Family History Relationship Name Date of Condition Age ( Cause Age ( Age Gender Recorded At of At Date/Time Onset ) ) MOTHER Family history: F 09/29/14 Cardiovascular 2320 disease FATHER Family history: M 09/29/14 Cardiovascular 2320 disease Social History Problem Response Recorded Date Exposure to Occupational hazards: N 09/29/14 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 Plan of Care Discharge Date 11/28/15 Disposition HOME, SELF-CARE or ASST LIVING Condition at Discharge Stable Instructions/Education Provided Hip Contusion (ED) Prescriptions See Medications Section Referrals Flako Frederick - Additional Instructions/Education 1. Gentle range of motion 2. Tylenol as directed 3. Speak with PCP if pain continues to offer pain medication since you would liek to use tylenol now. Return for worsening pain, numbness, new concerns. Some of your test results may not be complete prior to your leaving the Emergency Department. The Emergency Department is not authorized to give test results over the phone. Please contact the doctor's office listed on this form for your final results. Follow up with your primary care physician or return to the Emergency Department for worsening or worrisome symptoms. * Emergency Department phone number: [phone] MEDICAL RECORD If you need copies of your X-rays, call [phone]. If you need copies of your medical record, including lab results, a signed authorization for release of records will be required. A telephone call for release of Health Information is not allowed. BILLING Billing can sometimes be confusing and frustrating. To help avoid confusion in the future, please take a moment to acquaint yourself with the billing parties for services. SERVICE BILLING CONSTITUTION PARTY [facility]. ED Physician Services [phone] X-rays [place] [facility] Patients will receive bills for services from the appropriate provider. If you have any questions about your [facility] bill, our staff will be happy to assist you. Please call [phone] and ask for the billing department. THANK YOU for choosing [facility] as your emergency care provider. Care Plan and Goals ~~Discharge Care Plan~~ Problem: Hip pain Goal: Decreased level of pain. Return to usual activities. Instructions: Take medication(s) as directed; follow up with primary care physician as directed; follow patient home care instructions. Apply ice or heat to site for comfort. Functional Status Query Response Date Recorded Paralysis: N October 03, 2014 8:37pm Steady Gait: Y October 04, 2014 9:05am Weakness: Y March 10, 2007 3:23pm Hand Quick Technician Equal: Y May 19, 2015 6:48pm Contractures: N October 03, 2014 8:37pm Alert: Y October 26, 2004 5:27pm Unresponsive: N October 03, 2014 8:37pm Allergies, Adverse Reactions, Alerts Allergen Type Severity Reaction Status Last Updated Sulfa (Sulfonamide Antibiotics) Allergy Unknown Active 11/07/15 sulfamethoxazole Allergy Unknown Active 11/07/15 trimethoprim Allergy Unknown Active 11/07/15 VIOXX Allergy Unknown Active 11/22/11 Immunizations Name Date Given Type Hepatitis N Historical Vital Signs Vital Reading Collection Date/Time Result Blood Pressure 11/28/15 4:00pm 145/68 Blood Pressure Source 11/28/15 4:00pm Sitting Patient Temperature 11/28/15 1:36pm 97.9 Temperature Source 11/28/15 1:36pm Oral Respiratory Rate 11/28/15 4:00pm 18 Pulse Rate 11/28/15 4:00pm 64 Pulse Location 11/28/15 4:00pm Pulse Oximetry Bedside Pulse Oximetry 11/28/15 4:00pm 98 Height 11/28/15 1:36pm 170.2 cm Height 11/28/15 1:36pm 5 ft 07 in Weight 11/28/15 1:36pm 63.6 kg Weight 11/28/15 1:36pm 140.0 lb Body Mass Index 11/28/15 1:36pm 22.0 Results Laboratory Results Test Name Result Units Flags Reference Collection Result Comments Date/Time Date/Time Urine CLEAN 11/08/15 11/08/15 Collection CATCH 0:10am 0:19am Type Urine Color Yellow 11/08/15 11/08/15 0:10am 0:49am Urine Clear 11/08/15 11/08/15 Appearance 0:10am 0:49am Urine Specific 1.020 1.005-1.035 11/08/15 11/08/15 [place] 0:10am 0:49am Urine pH 5 5-8 11/08/15 11/08/15 0:10am 0:49am Urine Protein Negative NEGATIVE 11/08/15 11/08/15 0:10am 0:49am Urine Glucose Negative NEGATIVE 11/08/15 11/08/15 0:10am 0:49am Urine Ketones Trace H NEGATIVE 11/08/15 11/08/15 0:10am 0:49am Urine Negative NEGATIVE 11/08/15 11/08/15 Bilirubin 0:10am 0:49am Urine Negative mg/dL NEGATIVE 11/08/15 11/08/15 Urobilinogen 0:10am 0:49am Urine Nitrate Negative NEGATIVE 11/08/15 11/08/15 0:10am 0:49am Urine Blood Negative NEGATIVE 11/08/15 11/08/15 0:10am 0:49am Urine Trace H NEGATIVE 11/08/15 11/08/15 Leukocyte 0:10am 0:49am Esterase Urine WBC 2-5 /hpf 11/08/15 11/08/15 0:10am 0:49am Urine RBC 0-2 /hpf 11/08/15 11/08/15 0:10am 0:49am Urine Squamous 0-2 /hpf 11/08/15 11/08/15 Epithelial 0:10am 0:49am Cells Urine Mucus Present /lpf 11/08/15 11/08/15 0:10am 0:49am Urine Bacteria Rare /hpf 11/08/15 11/08/15 0:10am 0:49am Urine Hyaline 1-3 /lpf 11/08/15 11/08/15 Casts 0:10am 0:49am B-Type 133 pg/mL H 0-100 11/07/15 11/07/15 INTERPRETIVE NOTE: Natriuretic 11:39pm 11:49pm BNP <100 pg/mL: CHF very unlikely (2%) Peptide BNP 100 - 400 pg/mL: Possible CHF, but must assess patient for other conditions (ex. renal failure, AMI, pulmonary emboli, cor pulmonale, etc.) BNP >400 pg/mL: CHF very likely (95%) Use Natrecor (Nesiritide) ONLY IF BNP >400 pg/mL, per current CHF Admission protocol. White Blood 5.3 K/mm3 4.8-10.8 11/07/15 11/07/15 Count 11:18pm 11:38pm Red Blood 4.08 M/mm3 L 4.10-5.30 11/07/15 11/07/15 Count 11:18pm 11:38pm Hemoglobin 11.4 g/dl L 12.5-16.0 11/07/15 11/07/15 11:18pm 11:38pm Hematocrit 34.4 % L 37.0-47.0 11/07/15 11/07/15 11:18pm 11:38pm Mean 84 fl 80.0-100.0 11/07/15 11/07/15 Corpuscular 11:18pm 11:38pm Volume Mean 28 pg 27.0-31.0 11/07/15 11/07/15 Corpuscular 11:18pm 11:38pm Hemoglobin Mean 33 g/dl L 33.0-37.0 11/07/15 11/07/15 Corpuscular 11:18pm 11:38pm Hemoglobin Concent Red Cell 16.0 % H 11.5-14.5 11/07/15 11/07/15 Distribution 11:18pm 11:38pm Width Platelet Count 158 K/mm3 130-400 11/07/15 11/07/15 11:18pm 11:38pm Mean Platelet 9.8 fl 7.4-10.4 11/07/15 11/07/15 Volume 11:18pm 11:38pm Granulocytes 57.7 % 42.2-75.2 11/07/15 11/07/15 (%) 11:18pm 11:38pm Lymphocytes % 27.9 % 20.0-51.0 11/07/15 11/07/15 11:18pm 11:38pm Monocytes % 12.1 % H 1.7-9.3 11/07/15 11/07/15 11:18pm 11:38pm Eosinophils % 1.3 % 0-4.0 11/07/15 11/07/15 11:18pm 11:38pm Basophils % 0.8 % 0.0-2.0 11/07/15 11/07/15 11:18pm 11:38pm Granulocytes # 3.0 1.4-6.5 11/07/15 11/07/15 11:18pm 11:38pm Lymphocytes # 1.5 1.2-3.4 11/07/15 11/07/15 11:18pm 11:38pm Monocytes # 0.6 0.1-0.6 11/07/15 11/07/15 11:18pm 11:38pm Eosinophils # 0.1 0.0-0.7 11/07/15 11/07/15 11:18pm 11:38pm Basophils # 0.0 0.0-0.2 11/07/15 11/07/15 11:18pm 11:38pm Glucose Level 83 mg/dL 74-106 11/07/15 11/07/15 11:18pm 11:44pm Blood Urea 21 mg/dL H 11-1811/07/15 11/07/15 Nitrogen 11:18pm 11:44pm Creatinine 0.94 mg/dL 0.52-1.25 11/07/15 11/07/15 11:18pm 11:44pm Estimated GFR 68 11/07/15 11/07/15 ( 11:18pm 11:44pm [place]) Estimated GFR 56 11/07/15 11/07/15 eGFR Interpretation: (Non- 11:18pm 11:44pm [place] Chronic Kidney Disease=CKD CKD STAGE I > [...] status. Sodium Level 136 mmol/L L 137-145 11/07/15 11/07/15 11:18pm 11:44pm Potassium 3.6 mmol/L 3.4-5.0 11/07/15 11/07/15 Level 11:18pm 11:44pm Chloride Level 102 mmol/L 98-107 11/07/15 11/07/15 11:18pm 11:44pm Carbon Dioxide 28 mmol/L 22-30 11/07/15 11/07/15 Level 11:18pm 11:44pm Anion Gap 7 mmol/L 11-1711/07/15 11/07/15 11:18pm 11:44pm Calcium Level 8.9 mg/dL 8.4-10.2 11/07/15 11/07/15 11:18pm 11:44pm Thyroid 3.520 uIU/mL 0.465-4.680 11/07/15 11/08/15 Stimulating 11:18pm 0:16am Hormone (TSH) Troponin I < 0.012 ng/mL 0.000-0.034 11/07/15 11/08/15 11:18pm 0:03am Procedures No Known History of Procedures. Encounters Encounter Location Arrival/Admit Date Discharge/Depart Date Attending Provider Departed [facility] 11/28/15 1:28pm 11/28/15 4:00pm MIKE PADRON [facility] Departed [facility] 11/07/15 10:19pm 11/08/15 0:55am [facility] FEI BONILLA [place] Encounter Diagnosis Contusion of hip
--- OUTSIDE RECORDS SUMMARY | 2017-04-01 01:39 | External Medical Summary | Continuity of Care Document ---
:1930 Author Organization [facility]. Care Team Providers Name Role Phone Flako Frederick Primary Care Physician Insurance Providers Payer Name Policy Number Subscriber Name Relationship MEDICARE INPT & OUTPT [id number] ROSANA FOSTER SELF / SAME PATIENT [facility] [id number] ROSANA FOSTER SELF / SAME PATIENT Advance Directives Directive Response Recorded Date/Time Advance Directives: Yes 05/18/16 5:08am Type: Durable Power of Vat Packer 09/29/14 0:41am Problems Active Medical Problems Problem [...] Contusion of lower back Unknown 05/18/16 Active Medications Current Home Medications Medication Dose [...] Gabapentin At bedtime (Neurontin) 100 MG CAPSULE HYDROcodone/Aceta 1-2 TAB PO Q4-6 HR PRN PAIN 15 05/18/16 minophen (Questa) 5 MG/325 MG TABLET Levothyroxine 0.088 MG PO Once daily (Synthroid) [...] Po Once a day Unknown Discontinued Hydrocodone/Acetaminophen ([place]) Every four hours PRN PAIN 10/04/14 Discontinued [...] discharge instructions. Plan of Care Discharge Date 05/18/16 Disposition 01-HOME, SELF-CARE,ASST LIVING Condition at Discharge Stable Instructions/Education Provided Hydrocodone/Acetaminophen (By mouth) Hematoma (ED) Prescriptions See Medications Section Referrals Flako Frederick - Additional Instructions/Education 1. ice packs to back intermittantly 2. take pain medication as needed 3. watch skin over the hematoma carefully, if it starts to break down, notify PCP. 4. notify PCP if pain isn't improving Some of your test results may not [...] worrisome symptoms. * Emergency Department phone number: [phone] MEDICAL RECORD If you need copies of your X-rays, call [phone]. If you need copies of your medical record, including lab results, a signed authorization for release of records will be required. A telephone call for release of Health Information is not allowed. BILLING Billing can sometimes be confusing and frustrating. To help avoid confusion in the future, please take a moment to acquaint yourself with the billing parties for services. SERVICE BILLING DEMOCRAT [facility]. ED Physician Services [phone] X-rays [place] [facility] Patients will receive bills for services from the appropriate provider. If you have any questions about your [facility] bill, our staff will be happy to assist you. Please call [phone] and ask for the billing department. THANK YOU for choosing [facility] as your emergency care provider. Care Plan and Goals ~~Discharge Care Plan~~ Problem: Contusion, pain to affected area, fall. Goal: Decreased contusion and pain to affected area. Instructions: Apply ice to area for 15-20 minutes every 3-4 hours. Elevate extremity above the level of the heart, if applicable. Splint area with pillow or blanket to any chest/abdomen injuries. Use incentive spirometry as directed. Take at least 10 deep breaths per hour. Take medication(s) as directed. Follow up with regular physician or specialist as directed. Exercise as tolerated or directed by physician. 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 Equal: Y May 19, 2015 6:48pm Contractures: N October 03, 2014 8:37pm Alert: Y October 26, 2004 5:27pm Unresponsive: N October 03, 2014 8:37pm Allergies, Adverse Reactions, Alerts Allergen Type Severity Reaction Status Last Updated Sulfa (Sulfonamide Antibiotics) Allergy Unknown Active 05/18/16 sulfamethoxazole Allergy Unknown Active 05/18/16 trimethoprim Allergy Unknown Active 05/18/16 rofecoxib Allergy Unknown Active 05/18/16 Immunizations Name Date Given Type Hepatitis N Historical Vital Signs Vital Reading Collection Date/Time Result Blood Pressure 05/18/16 5:08am 195/76 Blood Pressure Source 05/18/16 5:08am Sitting Patient Temperature 05/18/16 5:08am 97.2 Temperature Source 05/18/16 5:08am Oral Respiratory Rate 05/18/16 5:08am 20 Pulse Rate 05/18/16 5:08am 56 Pulse Location 05/18/16 5:08am Cardio-Resp. Monitor Bedside Pulse Oximetry 05/18/16 5:08am 96 Height 05/18/16 5:08am 172.7 cm Height 05/18/16 5:08am 5 ft 8.04 in Weight 05/18/16 5:08am 61.4 kg Weight 05/18/16 5:08am 135.0 lb Body Mass Index 05/18/16 5:08am 20.6 Results No known relevant diagnostic tests, laboratory data and/or discharge summary. Procedures No Known History of Procedures. Encounters Encounter Location Arrival/Admit Date Discharge/Depart Date Attending Provider Departed [facility] 05/18/16 5:05am 05/18/16 6:15am [facility] Encounter Diagnosis Contusion of lower back
--- OUTSIDE RECORDS SUMMARY | 2017-04-01 01:40 | External Medical Summary | Continuity of Care Document ---
:[address] [facility]. Care Team Providers Name Role Phone Flako Frederick Primary Care Physician Insurance Providers Payer Name Policy Number Subscriber Name Relationship MEDICARE INPT & OUTPT [id number] ROSANA FOSTER SELF / SAME PATIENT [facility] [id number] ROSANA FOSTER SELF / SAME PATIENT Advance Directives Directive Response Recorded Date/Time Advance Directives: Yes 07/05/16 8:38am Type: Durable Power of Cotton Washer 09/29/14 0:41am Problems Active Medical Problems Problem [...] Personal history of fall Unknown 07/05/16 Active Medications Current Home Medications Medication Dose Units Route Directions Days/Qty Instructions Start Date Acetaminophen 650 MG PO Twice daily Hold per patient (Tylenol) 325 MG request for TABLET choice of OTC or fill as prescription. Acetaminophen 650 MG PO Every four hours Hold per patient (Tylenol) 325 MG PRN PAIN request for TABLET choice of OTC or fill as prescription. Amiodarone 200 MG PO Twice daily (Cordarone) 200 MG TABLET Amoxicillin 2,000 MG PO One Time Only (Amoxil*) 500 MG For FOR DENTAL CAPSULE PROCEDURE Aspirin (Aspirin 81 MG PO Hold per patient Chewable) 81 MG request for TAB.CHEW choice of OTC or fill as prescription. FLUoxetine 20 MG PO Once a day (PROzac) 20 MG CAPSULE Gabapentin 100 MG PO (Neurontin) 100 MG CAPSULE Gabapentin 100 MG PO Once a day PRN (Neurontin) 100 ANXIETY/AGITATIO MG CAPSULE N HYDROcodone/Aceta 1-2 TAB PO Q4-6 HR PRN PAIN 15 05/18/16 minophen ([place]) 5 MG/325 MG TABLET Haloperidol 1 MG PO Every eight (Haldol) 1 MG hours PRN TABLET AGITATION Levothyroxine 0.075 MG PO Once a day at 7 (Synthroid) 0.075 AM (Fasting) MG TABLET Magnesium 30 ML PO Once a day PRN Hydroxide (Milk CONSTIPATION of Magnesia) 400 MG/5 ML GREG Meclizine 12.5 MG PO Twice daily PRN (Antivert) 12.5 DIZZINESS MG TABLET Metoprolol (ER) 12.5 MG PO Twice daily Succinate (Toprol XL) 25 MG TABLET Rivastigmine 13.3 MG PO Once a day (Exelon Patch) 13.3 MG PATCH Past Home Medications Medication Directions Ordered Status [...] Unknown Discontinued Po Gabapentin (Neurontin) 100 Mg At bedtime Unknown Discontinued Capsule Capsule, Hydrocodone/Acetaminophen ([place]) Every four hours PRN PAIN 10/04/14 Discontinued [...] Unknown Discontinued Tablet, 25 Mg Po Magnesium Hydroxide/Mineral PRN Constipation Unknown Discontinued [...] discharge instructions. Plan of Care Discharge Date 07/05/16 Disposition 01-HOME, SELF-CARE,ASST LIVING Condition at Discharge Stable Instructions/Education Provided Headache, Adult Preventing Falls in the Older Adult Forms Provided Seen In ED Prescriptions See Medications Section Referrals Flako Frederick - Call office to schedule Additional Instructions/Education -- Home to rest -- Patient is fall risk and must be monitored -- May take acetaminophen or previously prescribed medications for discomfort -- Monitor blood pressure closely -- Call primary care provider to make arrangements for recheck and follow up care. -- REturn to the ER at any time for concerns Some of your test results may not [...] worrisome symptoms. * Emergency Department phone number: [phone] MEDICAL RECORD If you need copies of your X-rays, call [phone]. If you need copies of your medical record, including lab results, a signed authorization for release of records will be required. A telephone call for release of Health Information is not allowed. BILLING Billing can sometimes be confusing and frustrating. To help avoid confusion in the future, please take a moment to acquaint yourself with the billing parties for services. SERVICE BILLING [place] Emergency [facility] Services [facility] [phone] X-rays [place] [facility] Patients will receive bills for services from the appropriate provider. If you have any questions about your [facility] bill, our staff will be happy to assist you. Please call [phone] and ask for the billing department. THANK YOU for choosing [facility] as your emergency care provider. Care Plan and Goals ~~Discharge Care Plan~~ Problem: High Blood Pressure Goal: Blood pressure decreased to range for patient. Instructions: Monitor blood pressure and maintain a log of blood pressures , include date and time of day when blood pressure was taken. Take blood pressure log to your next appointment with your physician. Eat a well balanced diet. Avoid salt. Exercise regularly as tolerated. Take medication(s) as prescribed. Follow up with regular physician as directed. Functional Status Query Response Date Recorded Paralysis: N October 03, 2014 8:37pm Steady Gait: Y October 04, 2014 9:05am Weakness: Y March 10, 2007 3:23pm Hand Head Of Product Equal: Y May 19, 2015 6:48pm Contractures: [...] Vital Reading Collection Date/Time Result Blood Pressure 07/05/16 2:03pm 109/53 Blood Pressure Source 07/05/16 2:03pm Sitting Patient Temperature 07/05/16 8:38am 97.7 Temperature Source 07/05/16 8:38am Oral Respiratory Rate 07/05/16 2:03pm 18 Pulse Rate 07/05/16 2:03pm 53 Pulse Location 07/05/16 2:03pm Pulse Oximetry Bedside Pulse Oximetry 07/05/16 11:15am 97 Height 07/05/16 8:38am 170.2 cm Height 07/05/16 8:38am 5 ft 07 in Weight 07/05/16 8:38am 59.1 kg Weight 07/05/16 8:38am 130.0 lb Body Mass Index 07/05/16 8:38am 20.4 Results Laboratory Results Test Name Result Units Flags Reference Collection Result Comments Date/Time Date/Time White Blood Count 6.8 K/mm3 4.8-10.8 07/05/16 [...] 07/05/16 9:50am 10:24am Blood Urea 16 mg/dL 7-17 07/05/16 07/05/16 Nitrogen 9:50am 10:24am Creatinine 0.81 mg/dL 0.52-1.25 07/05/16 07/05/16 9:50am 10:24am Estimated GFR 81 07/05/16 07/05/16 () 9:50am 10:24am Estimated GFR 67 07/05/16 07/05/16 eGFR Interpretation: (Non- 9:50am 10:24am [place] Chronic Kidney Disease=CKD CKD STAGE I > [...] Level 9:50am 10:24am Anion Gap 10 mmol/L 7-16 07/05/16 07/05/16 9:50am 10:24am Calcium Level 9.7 mg/dL [...] Discharge/Depart Date Attending Provider Departed Via [facility] 07/05/16 8:34am [facility]/05[facility] Encounter Diagnosis Headache History of fall
--- OUTSIDE RECORDS SUMMARY | 2017-04-01 01:40 | External Medical Summary | Continuity of Care Document ---
:1930 Author Organization [facility]. Care Team Providers Name Role Phone Flako Frederick Primary Care Physician Insurance Providers Payer Name Policy Number Subscriber Name Relationship MEDICARE INPT & OUTPT [id number] ROSANA FOSTER SELF / SAME PATIENT [facility] [id number] ROSANA FOSTER SELF / SAME PATIENT Advance Directives Directive Response Recorded Date/Time Advance Directives: Yes 11/07/15 10:21pm Type: Durable Power of Log Marker 09/29/14 0:41am Problems Active Medical Problems Problem [...] Active Elevated blood pressure Unknown 11/08/15 Active Medications Current Home Medications Medication Dose [...] Po Once a day Unknown Discontinued Hydrocodone/Acetaminophen ([place]) Every four hours PRN PAIN 10/04/14 Discontinued [...] Mg/37.5 Mg Capsule Capsule, 1 Cap Po Levofloxacin (Levaquin) 500 Mg Once a day 05/19/15 Discontinued Tablet Tablet, 500 Mg Po Levothyroxine Sodium (Synthroid) 0700 Unknown [...] bedtime Unknown Discontinued Tab, 80 Mg Po Family History Relationship Name Date [...] discharge instructions. Plan of Care Discharge Date 11/08/15 Disposition XFER LONGTERM FACILITY Condition at Discharge Stable Instructions/Education Provided Fall Prevention for Older Adults (ED) Hypertension (ED) Hip Pain (ED) Prescriptions See Medications Section Referrals Flako Frederick - Call office to schedule Additional Instructions/Education Return if progressive pain, concerns of any type. Have the nurses recheck your blood pressure at 0300. ALert DR Frederick (I suspect in the morning during normal hours) of this and any additional blood pressure results. He may want to change your medicines and add a medicine to decrease extremity swelling and lower blood pressure. Some of your test results may not [...] worrisome symptoms. * Emergency Department phone number: [phone] MEDICAL RECORD If you need copies of your X-rays, call [phone]. If you need copies of your medical record, including lab results, a signed authorization for release of records will be required. A telephone call for release of Health Information is not allowed. BILLING Billing can sometimes be confusing and frustrating. To help avoid confusion in the future, please take a moment to acquaint yourself with the billing parties for services. SERVICE BILLING [place] [facility] ED Physician Services [phone] X-rays [place] [facility] Patients will receive bills for services from the appropriate provider. If you have any questions about your [facility] bill, our staff will be happy to assist you. Please call [phone] and ask for the billing department. THANK YOU for [facility] your emergency care provider. Care Plan and Goals ~~Discharge Care Plan~~ Problem: Hip pain Goal: Decreased level of pain. Return to usual activities. Instructions: Take medication as directed; follow up with primary care physician as directed; follow patient home care instructions. Apply ice or heat to site for comfort. 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 Equal: Y May 19, 2015 6:48pm Contractures: [...] Vital Reading Collection Date/Time Result Blood Pressure 11/08/15 0:42am 193/76 Blood Pressure Source 11/08/15 0:42am Supine Patient Temperature 11/07/15 10:21pm 97.6 Temperature Source 11/07/15 10:21pm Oral Respiratory Rate 11/08/15 0:42am 16 Pulse Rate 11/08/15 0:42am 56 Pulse Location 11/08/15 0:42am Pulse Oximetry Bedside Pulse Oximetry 11/08/15 0:42am 97 Height 11/07/15 10:21pm 170.2 cm Height 11/07/15 10:21pm 5 ft 07 in Weight 11/07/15 10:21pm 65.5 kg Weight 11/07/15 10:21pm 144.0 lb Body Mass Index 11/07/15 10:21pm 22.6 Results Laboratory Results Test Name Result Units Flags Reference Collection Result Comments Date/Time Date/Time Urine CLEAN 11/08/15 11/08/15 Collection CATCH 0:10am 0:19am Type Urine Color Yellow 11/08/15 11/08/15 0:10am 0:49am Urine Clear 11/08/15 11/08/15 Appearance 0:10am 0:49am Urine Specific 1.020 1.005-1.035 11/08/15 11/08/15 [place] 0:10am 0:49am Urine pH 5 5-8 11/08/15 [...] 11:18pm 11:44pm Blood Urea 21 mg/dL H 7-11/07/15 11/07/15 Nitrogen 11:18pm 11:44pm Creatinine 0.94 mg/dL 0.52-1.25 11/07/15 11/07/15 11:18pm 11:44pm Estimated GFR 68 11/07/15 11/07/15 ( 11:18pm 11:44pm [place]) Estimated GFR 56 11/07/15 11/07/15 eGFR Interpretation: (Non- 11:18pm 11:44pm [place] Chronic Kidney Disease=CKD CKD STAGE I > [...] Level 11:18pm 11:44pm Anion Gap 7 mmol/L 7-11/07/15 11/07/15 11:18pm 11:44pm Calcium Level 8.9 mg/dL 8.4-10.2 11/07/15 11/07/15 11:18pm 11:44pm Thyroid 3.520 uIU/mL 0.465-4.680 11/07/15 11/08/15 Stimulating 11:18pm 0:16am Hormone (TSH) Troponin I < 0.012 ng/mL 0.000-0.034 11/07/15 11/08/15 11:18pm 0:03am Procedures No Known History of Procedures. Encounters Encounter Location Arrival/Admit Date Discharge/Depart Date Attending Provider Departed Via [facility] 11/07/15 10:19pm 11/08/15 0:55am [facility] FEI Blanc Encounter Diagnosis Arthralgia of hip Fall Elevated blood pressure
--- OUTSIDE RECORDS SUMMARY | 2017-04-01 01:40 | External Medical Summary | Continuity of Care Document ---
:1930 Author Organization [facility]. Address [address] [place] [address] Care Team Providers Name Role Phone Flako Frederick Primary Care Physician Insurance Providers Payer Name Policy Number Subscriber Name Relationship MEDICARE INPT & OUTPT [id number] ROSANA FOSTER SELF / SAME PATIENT [facility] [id number] ROSANA FOSTER SELF / SAME PATIENT Advance Directives Directive Response Recorded Date/Time Advance Directives: Yes 10/19/16 0:13am Type: Durable Power of Local Area Network Administrator 07/10/16 9:58pm Chief Complaint and Reason for Visit Reason for Visit Problems Active Medical Problems Problem Onset Date [...] Change in mental status Unknown 07/10/16 Active Malaise Unknown 10/19/16 Active Medications Current Home Medications Medication Dose Units Route Directions Days/Qty Instructions Start Date Acetaminophen 1-2 TAB By Mouth Every four Hold per (Tylenol) 325 MG hours as needed patient request TABLET for PAIN for choice of OTC or fill as prescription. Aluminum 30 ML By Mouth Hydroxide/Magnesi um (Almacone Oral Susp) 355 ML BOTTLE Amoxicillin 2,000 MG By Mouth One Time Only (Amoxil*) 500 MG as needed for CAPSULE DENTAL PROCEDURE Aspirin (Aspirin 81 MG By Mouth Once daily Hold per Chewable) 81 MG patient request TAB.CHEW for choice of OTC or fill as prescription. Atorvastatin 10 MG By Mouth Once daily (Lipitor) 10 MG TABLET Carbamide 3 DROP OTIC Peroxide (Debrox 6.5% Otic Soln) 15 ML BOTTLE Cyanocobalamin 1,000 MCG By Mouth (Vitamin B-12) 1,000 MCG TAB FLUoxetine 20 MG By Mouth Once a day (PROzac) 20 MG CAPSULE Gabapentin 100 MG By Mouth Once a day as (Neurontin) 100 needed for MG CAPSULE ANXIETY/AGITATI ON HYDROcodone/Aceta 1-2 TAB By Mouth Q4-6 HR as 15 minophen ([place]) needed for PAIN 7 5 MG/325 MG TABLET HYDROcodone/Aceta 1-2 TAB By Mouth Q4-6 HR as 20 minophen ([place]) needed for Pain 7 5 MG/325 MG TABLET Levothyroxine 0.075 MG By Mouth Once a day at 7 (Synthroid) 0.075 AM (Fasting) MG TABLET Magnesium 30 ML By Mouth As needed as Hydroxide (Milk needed for of Magnesia) 400 constipation MG/5 ML JAYDA Meclizine 12.5 MG By Mouth Twice daily as (Antivert) 12.5 needed for MG TABLET DIZZINESS Promethazine 1 SUP RECTAL Q6-8 HR as Insert one (Phenergan needed for suppository Suppository) 25 Nausea rectally every MG SUP 6-8 hours as needed for nausea. QUEtiapine 25 MG By Mouth .[Q HS] 30 (SEROquel) 25 MG 7 TABLET QUEtiapine 12.5 MG By Mouth (SEROquel) 25 MG TABLET Rivastigmine 13.3 MG TRANSDERM Once a day (Exelon Patch) 13.3 MG PATCH amLODIPine 5 MG By Mouth Once a day 30 (Norvasc) 5 MG 7 TABLET levoFLOXacin 750 MG By Mouth Once a day 7 (Levaquin) 750 MG 7 TABLET traZODone 50 MG By Mouth Daily at 30 (Desyrel) 50 MG bedtime as 7 TABLET needed for Insomnia Past Home Medications Medication Directions Ordered Status Acetaminophen (Tylenol Extra As needed Unknown Discontinued Strength) 500 Mg Tablet Tablet, 500 Mg By Mouth Acetaminophen (Tylenol) 325 Mg Twice daily Unknown Discontinued Tablet Tablet, 650 Mg By Mouth Acetaminophen (Tylenol) 325 Mg Four times a day as needed for Unknown Discontinued Tablet Tablet, 325 Mg By Mouth Pain Amiodarone (Cordarone) 200 Mg Twice daily Unknown Discontinued Tablet Tablet, 200 Mg By Mouth Apixaban (Eliquis) 5 Mg Tablet Twice daily 10/04/14 Discontinued Tablet, 5 Mg By Mouth Apixaban (Eliquis) 5 Mg Tablet Twice daily Unknown Discontinued Tablet, 5 Mg By Mouth Ascorbic Acid (Vitamin C) 500 Mg Unknown Discontinued Tablet Tablet, 500 Mg By Mouth Ascorbic Acid (Vitamin C) 500 Mg Once a day 10/04/14 Discontinued Tablet Tablet, 500 Mg By Mouth Aspirin (Aspirin Chewable) 81 Mg Once a day Unknown Discontinued Tab.chew Tab.chew, 81 Mg By Mouth Aspirin, Buffered (Aspirin Twice daily 10/04/14 Discontinued Buffered) 325 Mg Tablet Tablet, 325 Mg By Mouth Atorvastatin (Lipitor) 10 Mg At bedtime Unknown Discontinued Tablet Tablet, 10 Mg By Mouth Atorvastatin (Lipitor) 10 Mg Once daily Unknown Discontinued Tablet Tablet, 10 Mg By Mouth Biotin/Ca/Ca Pantothenate/Cr Once daily Unknown Discontinued (Centrum Multivitamin) 1 Tab Tab Tab, 1 Tab By Mouth Benzonatate (Tessalon Perles) 100 Every eight hours as needed as 05/19/15 Discontinued Mg Sgl Sgl, 100 Mg By Mouth needed for cough Calcium Carbonate (Oscal 500) 500 Once a day 10/04/14 Discontinued Mg Tablet Tablet, 500 Mg By Mouth Calcium Carbonate/Famotidine Once daily Unknown Discontinued (Pepcid Complete) 800 Mg/10 Mg Ctb Ctb, 1 Tab By Mouth Calcium Carbonate/Famotidine Twice daily Unknown Discontinued (Pepcid Complete) 800 Mg/10 Mg Ctb Ctb, 1 Tab By Mouth Calcium Carbonate/Vitamin D Once a day Unknown Discontinued (Calcium) 1 Cap Cap Cap, 1 Cap By Mouth Calcium Carbonate/Vitamin D3 Once daily Unknown Discontinued (Caltrate D) 600 Mg/200 Units Tablet Tablet, 2 Tab By Mouth Cephalexin (Keflex *) 500 Mg As needed Unknown Discontinued Capsule Capsule, 500 Mg By Mouth Clopidogrel Bisulfate (Plavix) Once daily Unknown Discontinued Tablet Tablet, 75 Mg By Mouth Clopidogrel Bisulfate (Plavix) Once daily Unknown Discontinued Tablet Tablet, 75 Mg By Mouth Diazide , Mg By Mouth QAM Unknown Discontinued Diphenhydramine Hcl (Benadryl) QHS PRN Unknown Discontinued Capsule Capsule, 25-50 Mg By Mouth Dronedarone (Multaq) 400 Mg Twice daily with food Unknown Discontinued Tablet Tablet, 400 Mg By Mouth Fish Oil (Fish Oil Concentrate) Once daily Unknown Discontinued 1,000 Mg Sgl Sgl, 1,000 Mg By Mouth Fish Oil 500 Mg Cap Cap, 500 Mg Once a day Unknown Discontinued By Mouth Gabapentin (Neurontin) 100 Mg Once daily Unknown Discontinued Capsule Capsule, 100 Mg By Mouth Gabapentin (Neurontin) 100 Mg At bedtime Unknown Discontinued Capsule Capsule, Hydrocodone/Acetaminophen ([place]) Every four hours as needed for 10/04/14 Discontinued 5 Mg/325 Mg Tablet Tablet, 1 PAIN Udtab By Mouth Haloperidol (Haldol) 0.5 Mg QD PRN as needed for AGITATION Unknown Discontinued Tablet Tablet, 0.5 Mg By Mouth Haloperidol (Haldol) 1 Mg Tablet Once a day Unknown Discontinued Tablet, 1 Mg By Mouth Haloperidol (Haldol) 1 Mg Tablet Every eight hours as needed Unknown Discontinued Tablet, 1 Mg By Mouth for AGITATION Hctz/Triamterene (Dyazide) 25 QAM Unknown Discontinued Mg/37.5 Mg Capsule Capsule, 1 Cap By Mouth Hctz/Triamterene (Dyazide) 25 QAM Unknown Discontinued Mg/37.5 Mg Capsule Capsule, 2 Cap By Mouth Hctz/Triamterene (Dyazide) 25 Twice daily Unknown Discontinued Mg/37.5 Mg Capsule Capsule, 2 Cap By Mouth Hctz/Triamterene (Dyazide) 25 Twice daily Unknown Discontinued Mg/37.5 Mg Capsule Capsule, 1 Cap By Mouth Levothyroxine (Synthroid) 0.088 Once daily Unknown Discontinued Mg Tablet Tablet, 0.088 Mg By Mouth Levothyroxine Sodium (Synthroid) 0700 Unknown Discontinued Tablet Tablet, 38 Mcg By Mouth Losartan (Cozaar) 25 Mg Tablet At bedtime Unknown Discontinued Tablet, 25 Mg By Mouth Magnesium Hydroxide (Milk Of Once a day as needed for Unknown Discontinued Magnesia) 400 Mg/5 Ml Jayda Jayda, 30 CONSTIPATION Ml By Mouth Magnesium Hydroxide/Mineral as needed for Constipation Unknown Discontinued (Milk Of Magnesia/Mineral Oil 30 Ml) 30 Ml Liq Liq, 30 Ml By Mouth Meclizine (Antivert) 12.5 Mg as needed for DIZZINESS Unknown Discontinued Tablet Tablet, 12.5 Mg By Mouth Meclizine (Antivert) 25 Mg Tablet Three times daily 02/21/14 Discontinued Tablet, 25 Mg By Mouth Meclizine (Antivert) 25 Mg Tablet TID PRN 08/04/12 Discontinued Tablet, 25 Mg By Mouth Metoprolol (Er) Succinate (Toprol Twice daily Unknown Discontinued Xl) 25 Mg Tablet Tablet, 25 Mg By Mouth Metoprolol Succinate (Toprol Xl) Once daily Unknown Discontinued 25 Mg Ter Ter, 25 Mg By Mouth Metoprolol Succinate (Toprol Xl) Once daily Unknown Discontinued 25 [address] Ter Ter, 25 Mg By Mouth Multimineral/Multivitamin Unknown Discontinued (Multiple Vitamin W/Minerals No Iron) 1 Tab Tab Tab, 1 Tab By Mouth Multivitamin (Multiple Vitamins) Once a day Unknown Discontinued 1 Cap Capsule Capsule, 1 Cap By Mouth Ondansetron (Zofran) 4 Mg Tablet Q 6 HR PRN 08/04/12 Discontinued Tablet, 4 Mg By Mouth Potassium Chloride (Kdur) 20 Meq Once daily Unknown Discontinued Tablet Tablet, 20 Meq By Mouth Potassium Chloride (Klor-Con) 10 Three times daily Unknown Discontinued Meq Tablet.sa Tablet.sa, 10 Meq By Mouth Potassium Chloride (Potassium Three times daily Unknown Discontinued Chloride 10MEQ) 10 Meq Capsule.sa Capsule.sa, 10 Meq By Mouth Quetiapine (Seroquel) 25 Mg Twice daily 07/12/16 Discontinued Tablet Tablet, 12.5 Mg By Mouth Rivastigmine (Exelon Patch) 13.3 Once a day Unknown Discontinued Mg Patch Patch, 13.3 Mg Rivastigmine (Exelon Patch) 4.6 Once a day Unknown Discontinued Mg Patch Patch, 4.6 Mg Transderm Spironolactone (Aldactone 25MG) Once daily Unknown Discontinued 25 Mg Tablet Tablet, 25 Mg By Mouth Spironolactone (Aldactone) 25 Mg Once daily Unknown Discontinued Tablet Tablet, 25 Mg By Mouth Valsartan (Diovan 80MG) 80 Mg Tab Daily at bedtime Unknown Discontinued Tab, 80 Mg By Mouth Vitamin E (Grx Vitamin E) 1,000 Unknown Discontinued Iu Cre Cre, 1,000 Iu Topical Levofloxacin (Levaquin) 500 Mg Once a day 05/19/15 Discontinued Tablet Tablet, 500 Mg By Mouth Family History Relationship Name Date of Condition [...] Smoking status: Former smoker Hospital Discharge Instructions Transfer Information Instructions/Post DC Orders CONTINUE MEDICATIONS RECONCILED. STARTED AMLODIPINE ONCE DAILY. CONTINUE SEROQUEL TID, TRAZADONE PRN STARTED BY PSYCHIATRY. HOLD BETA RACHEL HEART RATE BORDERLINE LOW. Appointment Information FOLLOW-UP WITH PCP WITHIN 1 WEEK. FOLLOW-UP WITH PSYCHIATRY PER RECOMMENDATIONS. Activity Guidelines PT/OT TO EVALUATE AND TREAT. Discharge Diet Heart Healthy Plan of Care Discharge Date 10/19/16 Disposition 01-HOME, SELF-CARE,ASST LIVING Condition at Discharge Stable Instructions/Education Provided Fatigue Forms Provided Seen In ED Prescriptions See Medications Section Referrals Flako Frederick - Additional Instructions/Education 1. Check BP twice daily. 2. Stop Norvasc (amlodipine). 3. Continue Levaquin. 4. Monitor for weakness, lethargy, low sats, or other new concerns. 5. RETURN IMMEDIATELY FOR ANY NEW CONCERNS OVER THE WEEKEND. Some of your test results may not [...] worrisome symptoms. * Emergency Department phone number: [phone] MEDICAL RECORD If you need copies of your X-rays, call [phone]. If you need copies of your medical [...] BILLING [place] [phone] X-rays [facility] Patients will receive bills for services from the appropriate provider. If you have any questions about your [facility] bill, our staff will be happy to assist you. Please call [phone] and ask for the billing department. THANK YOU for choosing [facility] as your emergency care provider. Care Plan and Goals ~~Discharge Care Plan~~ Problem: Weakness, not feeling well, discomfort. Goal: Decreased weakness, discomfort, and patient feels better. Instructions: Drink plenty of fluids at least 6-8 glasses of water or other non carbonated drink. Get plenty of rest. Eat a balanced and healthy diet. Take medication(s) as directed. Follow up with primary care physician as directed. 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 July 12, 2016 8:25am Contractures: N July 12, 2016 8:25am Alert: Y October 26, 2004 5:27pm Unresponsive: N July 12, 2016 8:25am Allergies, Adverse Reactions, Alerts Allergen Type Severity Reaction Status Last Updated Sulfa (Sulfonamide Antibiotics) Allergy Unknown Active 10/19/16 sulfamethoxazole Allergy Unknown Active 10/19/16 trimethoprim Allergy Unknown Active 10/19/16 memantine Allergy Unknown Active 10/19/16 rofecoxib Allergy Unknown Active 10/19/16 Immunizations Name Date Given Type Hepatitis N Historical Vital Signs Vital Reading Collection Date/Time Result Blood Pressure 10/19/16 3:40am 116/45 Blood Pressure Source 10/19/16 3:40am Sitting Temperature 10/19/16 0:13am 97.3 F Temperature Source 10/19/16 0:13am Oral Respiratory Rate 10/19/16 3:40am 18 Pulse Rate 10/19/16 3:40am 65 Pulse Location 10/19/16 3:40am Cardio-Resp. Monitor Bedside Pulse Oximetry 10/19/16 3:40am 93 Height 10/19/16 0:13am 5 ft 0 in Height 10/19/16 0:13am 152.4 cm Weight 10/19/16 0:13am 120 lb Weight 10/19/16 0:13am 54.5 kg Body Mass Index 10/19/16 0:13am 23.5 kg/m2 Results Laboratory Results Test Name Result Units Flags Reference Collection Result Comments Date/Time Date/Time Urine Collection CATHETER 10/19/16 10/19/16 Type 1:07am 1:16am Urine Color Yellow 10/19/16 10/19/16 1:07am 1:22am Urine Appearance Hazy 10/19/16 10/19/16 1:07am 1:22am Urine Specific 1.020 1.005-1.035 10/19/16 10/19/16 [place] 1:07am 1:22am Urine pH 6 5-8 10/19/16 10/19/16 1:07am 1:22am Urine Protein 1+ H NEGATIVE 10/19/16 10/19/16 1:07am 1:22am Urine Glucose Negative NEGATIVE 10/19/16 10/19/16 1:07am 1:22am Urine Ketones Trace H NEGATIVE 10/19/16 10/19/16 1:07am 1:22am Urine Bilirubin Negative NEGATIVE 10/19/16 10/19/16 1:07am 1:22am Urine Urobilinogen Negative mg/dL NEGATIVE 10/19/16 10/19/16 1:07am 1:22am Urine Nitrate Negative NEGATIVE 10/19/16 10/19/16 1:07am 1:22am Urine Blood Negative NEGATIVE 10/19/16 10/19/16 1:07am 1:22am Urine Leukocyte Negative NEGATIVE 10/19/16 10/19/16 Esterase 1:07am 1:22am Urine WBC 2-5 /hpf 10/19/16 10/19/16 1:07am 1:22am Urine RBC 0-2 /hpf 10/19/16 10/19/16 1:07am 1:22am Urine Squamous 0-2 /hpf 10/19/16 10/19/16 Epithelial Cells 1:07am 1:22am Urine Mucus Present /lpf 10/19/16 10/19/16 1:07am 1:22am Urine Bacteria None Seen /hpf 10/19/16 10/19/16 1:07am 1:22am White Blood Count 14.8 K/mm3 H 4.8-10.8 10/19/16 10/19/16 0:53am 1:02am Red Blood Count 4.45 M/mm3 4.10-5.30 10/19/16 10/19/16 0:53am 1:02am Hemoglobin 12.5 g/dl 12.5-16.0 10/19/16 10/19/16 0:53am 1:02am Hematocrit 38.1 % 37.0-47.0 10/19/16 10/19/16 0:53am 1:02am Mean Corpuscular 86 fl 80.0-100.0 10/19/16 10/19/16 Volume 0:53am 1:02am Mean Corpuscular 28 pg 27.0-31.0 10/19/16 10/19/16 Hemoglobin 0:53am 1:02am Mean Corpuscular 33 g/dl L 33.0-37.0 10/19/16 10/19/16 Hemoglobin Concent 0:53am 1:02am Red Cell 16.0 % H 11.5-14.5 10/19/16 10/19/16 Distribution Width 0:53am 1:02am Platelet Count 143 K/mm3 130-400 10/19/16 10/19/16 0:53am 1:02am Mean Platelet 10.5 fl H 7.4-10.4 10/19/16 10/19/16 Volume 0:53am 1:02am Granulocytes (%) 85.7 % H 42.2-75.2 10/19/16 10/19/16 0:53am 1:02am Lymphocytes % 4.5 % L 20.0-51.0 10/19/16 10/19/16 0:53am 1:02am Monocytes % 8.9 % 1.7-9.3 10/19/16 10/19/16 0:53am 1:02am Eosinophils % 0.1 % 0-4.0 10/19/16 10/19/16 0:53am 1:02am Basophils % 0.2 % 0.0-2.0 10/19/16 10/19/16 0:53am 1:02am Granulocytes # 12.7 H 1.4-6.5 10/19/16 10/19/16 0:53am 1:02am Lymphocytes # 0.7 L 1.2-3.4 10/19/16 10/19/16 0:53am 1:02am Monocytes # 1.3 H 0.1-0.6 10/19/16 10/19/16 0:53am 1:02am Eosinophils # 0.0 0.0-0.7 10/19/16 10/19/16 0:53am 1:02am Basophils # 0.0 0.0-0.2 10/19/16 10/19/16 0:53am 1:02am Glucose Level 110 mg/dL H 74-106 10/19/16 10/19/16 0:53am 1:16am Blood Urea 20 mg/dL H 7-17 10/19/16 10/19/16 Nitrogen 0:53am 1:16am Creatinine 0.94 mg/dL 0.52-1.25 10/19/16 10/19/16 0:53am 1:16am Estimated GFR 68 10/19/16 10/19/16 () 0:53am 1:16am Estimated GFR 56 10/19/16 10/19/16 eGFR Interpretation: (Non- 0:53am 1:16am [place] Chronic Kidney Disease=CKD CKD STAGE I > [...] muscle mass, or nutritional status. Sodium Level 134 mmol/L L 137-145 10/19/16 10/19/16 0:53am 1:16am Potassium Level 3.9 mmol/L 3.4-5.0 10/19/16 10/19/16 0:53am 1:16am Chloride Level 98 mmol/L 98-107 10/19/16 10/19/16 0:53am 1:16am Carbon Dioxide 25 mmol/L 22-30 10/19/16 10/19/16 Level 0:53am 1:16am Anion Gap 11 mmol/L 7-16 10/19/16 10/19/16 0:53am 1:16am Calcium Level 9.2 mg/dL 8.4-10.2 10/19/16 10/19/16 0:53am 1:16am Calcium Adjusted 9.6 mg/dL 8.4-10.2 10/19/16 10/19/16 for Albumin 0:53am 1:16am Serum Total 6.1 gm/dL L 6.4-8.2 10/19/16 10/19/16 Protein 0:53am 1:16am Albumin 3.5 gm/dL 3.5-5.0 10/19/16 10/19/16 0:53am 1:16am Total Bilirubin 1.3 mg/dL H 0.0-1.0 10/19/16 10/19/16 0:53am 1:16am Aspartate Amino 30 U/L 15-37 10/19/16 10/19/16 Transf (AST/SGOT) 0:53am 1:16am Alanine 30 U/L 9-52 10/19/16 10/19/16 Aminotransferase 0:53am 1:16am (ALT/SGPT) Alkaline 102 U/L 50-136 10/19/16 10/19/16 Phosphatase 0:53am 1:16am Lactic Acid Level 1.6 mmol/L 0.4-2.0 10/19/16 10/19/16 0:53am 1:07am Troponin I < 0.012 ng/mL 0.000-0.034 10/19/16 10/19/16 0:53am 1:20am Urine Hyaline 1-3 /lpf 07/10/16 07/10/16 Casts 4:10pm 5:26pm Thyroid 1.460 uIU/mL 0.465-4.680 07/10/16 07/10/16 Stimulating 3:56pm 4:59pm Hormone (TSH) Acetaminophen < 10 ug/mL L 10-30 07/10/16 07/10/16 Level 3:56pm 4:46pm Salicylates Level < 1.0 mg/dL 07/10/16 07/10/16 Negative: <2 mg/dL 3:56pm 4:46pm Therapeutic: <20 mg/dL Toxic: >30 mg/dL Lethal: >60 mg/dL Plasma/Serum Blood < 10 mg/dL 07/10/16 07/10/16 Negative : <10 mg\dL Alcohol 3:56pm 4:46pm Toxic: 50-100 mg\dL Depression of COMPARATOR OPERATOR: >100 mg\dL Fatalities Reported: >400 mg\dL Procedures No Known History of Procedures. Encounters Encounter Location Arrival/Admit Date Discharge/Depart Date Attending Provider Departed [facility] 10/19/16 0:11am 10/19/16 3:43am MIKE PADRON [facility] 10/18/16 11:25pm MIKE PADRON Clinical EMS Discharged [facility] 07/10/16 2:34pm 07/12/16 8:37pm [facility] [place] Encounter Diagnosis Onset Date Malaise
--- OUTSIDE RECORDS SUMMARY | 2017-04-01 01:40 | External Medical Summary | Continuity of Care Document ---
:1930 Author Organization [facility]. Care Team Providers Name Role Phone Flako Frederick Primary Care Physician Insurance Providers Payer Name Policy Number Subscriber Name Relationship MEDICARE INPT & OUTPT [id number] ROSANA FOSTER SELF / SAME PATIENT [facility] [id number] ROSANA FOSTER SELF / SAME PATIENT Advance Directives Directive Response Recorded Date/Time Advance Directives: No 04/01/16 8:09pm Type: Durable Power of Qa Engineer 09/29/14 0:41am Problems Active Medical Problems Problem [...] 11/08/15 Active Contusion, hip Unknown 11/28/15 Active Atrial fibrillation Unknown 04/01/16 Active Medications Current Home Medications Medication Dose [...] Po Once a day Unknown Discontinued Hydrocodone/Acetaminophen ([place]) Every four hours PRN PAIN 10/04/14 Discontinued [...] discharge instructions. Plan of Care Discharge Date 04/01/16 Disposition 01-HOME, SELF-CARE,ASST LIVING Condition at Discharge Stable Instructions/Education Provided Atrial Fibrillation (ED) Prescriptions See Medications Section Referrals Flako Frederick - Additional Instructions/Education INCREASE YOUR METOPROLOL TO 25MG TWICE DAILY. F/U WITH DR ARTEAGA WITHIN A COUPLE OF DAY. Some of your test results may not [...] worrisome symptoms. * Emergency Department phone number: [phone] MEDICAL RECORD If you need copies of your X-rays, call [phone]. If you need copies of your medical record, including lab results, a signed authorization for release of records will be required. A telephone call for release of Health Information is not allowed. BILLING Billing can sometimes be confusing and frustrating. To help avoid confusion in the future, please take a moment to acquaint yourself with the billing parties for services. SERVICE BILLING LIBERTARIAN Emergency Room Services [facility] ED Physician Services [phone] X-rays [place] [facility] Patients will receive bills for services from the appropriate provider. If you have any questions about your [facility] bill, our staff will be happy to assist you. Please call [phone] and ask for the billing department. THANK YOU for choosing [facility] as your emergency care provider. Care Plan and Goals ~~Discharge Care Plan~~ Problem: Chest, epigastric or chest wall pain Goal: Decreased pain Instructions: Take medication(s) as directed. Follow home discharge instructions. Follow up with primary care physician or party plan sales unit advisor as directed. 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 Equal: Y May 19, 2015 6:48pm Contractures: N October 03, 2014 8:37pm Alert: Y October 26, 2004 5:27pm Unresponsive: N October 03, 2014 8:37pm Allergies, Adverse Reactions, Alerts Allergen Type Severity Reaction Status Last Updated Sulfa (Sulfonamide Antibiotics) Allergy Unknown Active 04/01/16 sulfamethoxazole Allergy Unknown Active 04/01/16 trimethoprim Allergy Unknown Active 04/01/16 rofecoxib Allergy Unknown Active 04/01/16 Immunizations Name Date Given Type Tetanus More than 5 years ago Historical Hepatitis N Historical Vital Signs Vital Reading Collection Date/Time Result Blood Pressure 04/01/16 11:38pm 137/87 Blood Pressure Source 04/01/16 11:38pm Sitting Patient Temperature 04/01/16 8:09pm 97.5 Temperature Source 04/01/16 8:09pm Oral Respiratory Rate 04/01/16 11:38pm 18 Pulse Rate 04/01/16 11:38pm 100 Pulse Location 04/01/16 11:38pm Pulse Oximetry Bedside Pulse Oximetry 04/01/16 11:38pm 94 Height 04/01/16 8:09pm 170.2 cm Height 11/28/15 1:36pm 5 ft 67 in Weight 04/01/16 8:09pm 77.3 kg Weight 04/01/16 8:09pm 170.0 lb Body Mass Index 04/01/16 8:09pm 26.7 Results Laboratory Results Test Name Result Units Flags Reference Collection Result Comments Date/Time Date/Time White Blood 5.9 K/mm3 4.8-10.8 04/01/16 04/01/16 Count 9:30pm 9:49pm Red Blood Count 4.50 M/mm3 4.10-5.30 04/01/16 04/01/16 9:30pm 9:49pm Hemoglobin 12.3 g/dl L 12.5-16.0 04/01/16 04/01/16 9:30pm 9:49pm Hematocrit 38.2 % 37.0-47.0 04/01/16 04/01/16 9:30pm 9:49pm Mean Corpuscular 85 fl 80.0-100.0 04/01/16 04/01/16 Volume 9:30pm 9:49pm Mean Corpuscular 27 pg L 27.0-31.0 04/01/16 04/01/16 Hemoglobin 9:30pm 9:49pm Mean Corpuscular 32 g/dl L 33.0-37.0 04/01/16 04/01/16 Hemoglobin 9:30pm 9:49pm Concent Red Cell 16.8 % H 11.5-14.5 04/01/16 04/01/16 Distribution 9:30pm 9:49pm Width Platelet Count 180 K/mm3 130-400 04/01/16 04/01/16 9:30pm 9:49pm Mean Platelet 9.8 fl 7.4-10.4 04/01/16 04/01/16 Volume 9:30pm 9:49pm Granulocytes (%) 59.3 % 42.2-75.2 04/01/16 04/01/16 9:30pm 9:49pm Lymphocytes % 23.3 % 20.0-51.0 04/01/16 04/01/16 9:30pm 9:49pm Monocytes % 14.8 % H 1.7-9.3 04/01/16 04/01/16 9:30pm 9:49pm Eosinophils % 1.4 % 0-4.0 04/01/16 04/01/16 9:30pm 9:49pm Basophils % 0.9 % 0.0-2.0 04/01/16 04/01/16 9:30pm 9:49pm Granulocytes # 3.5 1.4-6.5 04/01/16 04/01/16 9:30pm 9:49pm Lymphocytes # 1.4 1.2-3.4 04/01/16 04/01/16 9:30pm 9:49pm Monocytes # 0.9 H 0.1-0.6 04/01/16 04/01/16 9:30pm 9:49pm Eosinophils # 0.1 0.0-0.7 04/01/16 04/01/16 9:30pm 9:49pm Basophils # 0.1 0.0-0.2 04/01/16 04/01/16 9:30pm 9:49pm Prothrombin Time 16.1 SECONDS H 9.7-12.8 04/01/16 04/01/16 9:30pm 9:52pm INR 1.4 0.8-3.0 04/01/16 04/01/16 International 9:30pm 9:52pm Normalized Ratio Glucose Level 94 mg/dL 74-106 04/01/16 04/01/16 9:30pm 9:58pm Blood Urea 25 mg/dL H 7-17 04/01/16 04/01/16 Nitrogen 9:30pm 9:58pm Creatinine 1.24 mg/dL 0.52-1.25 04/01/16 04/01/16 9:30pm 9:58pm Estimated GFR 50 04/01/16 04/01/16 ( 9:30pm 9:58pm [place]) Estimated GFR 41 04/01/16 04/01/16 eGFR Interpretation: (Non- 9:30pm 9:58pm [place] Chronic Kidney Disease=CKD CKD STAGE I > [...] muscle mass, or nutritional status. Sodium Level 137 mmol/L 137-145 04/01/16 04/01/16 9:30pm 9:58pm Potassium Level 3.9 mmol/L 3.4-5.0 04/01/16 04/01/16 9:30pm 9:58pm Chloride Level 103 mmol/L 98-107 04/01/16 04/01/16 9:30pm 9:58pm Carbon Dioxide 26 mmol/L 22-30 04/01/16 04/01/16 Level 9:30pm 9:58pm Anion Gap 9 mmol/L 7-16 04/01/16 04/01/16 9:30pm 9:58pm Calcium Level 9.4 mg/dL 8.4-10.2 04/01/16 04/01/16 9:30pm 9:58pm Calcium Adjusted 9.8 mg/dL 8.4-10.2 04/01/16 04/01/16 for Albumin 9:30pm 9:58pm Serum Total 6.4 gm/dL 6.4-8.2 04/01/16 04/01/16 Protein 9:30pm 9:58pm Albumin 3.5 gm/dL 3.5-5.0 11/28/16 11/28/16 9:30pm 9:58pm Total Bilirubin 0.7 mg/dL 0.0-1.0 04/01/16 04/01/16 9:30pm 9:58pm Aspartate Amino 30 U/L 15-37 04/01/16 04/01/16 Transf 9:30pm 9:58pm (AST/SGOT) Alanine 34 U/L 9-52 04/01/16 04/01/16 Aminotransferase 9:30pm 9:58pm (ALT/SGPT) Alkaline 86 U/L 50-136 04/01/16 04/01/16 Phosphatase 9:30pm 9:58pm Troponin I < ng/mL 0.000-0.03 04/01/16 04/01/16 0.012 4 9:30pm 10:09pm Urine Collection CLEAN 03/20/16 03/20/16 Type CATCH 11:15am 3:04pm Urine Color Yellow 03/20/16 03/20/16 11:15am 4:52pm Urine Appearance Turbid 03/20/16 03/20/16 11:15am 4:52pm Urine Specific 1.030 1.005-1.03 03/20/16 03/20/16 [place] 5 11:15am 4:52pm Urine pH 5 5-8 03/20/16 03/20/16 11:15am 4:52pm Urine Protein Negative NEGATIVE 03/20/16 03/20/16 11:15am 4:52pm Urine Glucose Negative NEGATIVE 03/20/16 03/20/16 11:15am 4:52pm Urine Ketones Trace H NEGATIVE 03/20/16 03/20/16 11:15am 4:52pm Urine Bilirubin Negative NEGATIVE 03/20/16 03/20/16 11:15am 4:52pm Urine Negative mg/dL NEGATIVE 03/20/16 03/20/16 Urobilinogen 11:15am 4:52pm Urine Nitrate Negative NEGATIVE 03/20/16 03/20/16 11:15am 4:52pm Urine Blood Negative NEGATIVE 03/20/16 03/20/16 11:15am 4:52pm Urine Leukocyte Negative NEGATIVE 03/20/16 03/20/16 Esterase 11:15am 4:52pm Urine WBC None Seen /hpf 03/20/16 03/20/16 11:15am 4:52pm Urine RBC 0-2 /hpf 03/20/16 03/20/16 11:15am 4:52pm Urine Squamous 2-5 /hpf 03/20/16 03/20/16 Epithelial Cells 11:15am 4:52pm Urine Amorphous Present /uL 03/20/16 03/20/16 Crystals 11:15am 4:52pm Urine Mucus Present /lpf 03/20/16 03/20/16 11:15am 4:52pm Urine Bacteria Many /hpf 03/20/16 03/20/16 11:15am 4:52pm Glucose Level 82 mg/dL 74-106 03/20/16 03/20/16 7:50am 4:32pm Blood Urea 19 mg/dL H 7-03/20/16 03/20/16 Nitrogen 7:50am 4:32pm Creatinine 1.13 mg/dL 0.52-1.25 03/20/16 03/20/16 7:50am 4:32pm Estimated GFR 56 03/20/16 03/20/16 ( 7:50am 4:32pm [place]) Estimated GFR 46 03/20/16 03/20/16 eGFR Interpretation: (Non- 7:50am 4:32pm [place] Chronic Kidney Disease=CKD CKD STAGE I > [...] muscle mass, or nutritional status. Sodium Level 137 mmol/L 137-145 03/20/16 03/20/16 7:50am 4:32pm Potassium Level 4.0 mmol/L 3.4-5.0 03/20/16 03/20/16 7:50am 4:32pm Chloride Level 101 mmol/L 98-107 03/20/16 03/20/16 7:50am 4:32pm Carbon Dioxide 30 mmol/L 22-30 03/20/16 03/20/16 Level 7:50am 4:32pm Anion Gap 6 mmol/L L 7-03/20/16 03/20/16 7:50am 4:32pm Calcium Level 9.6 mg/dL 8.4-10.2 03/20/16 03/20/16 7:50am 4:32pm Calcium Adjusted 9.8 mg/dL 8.4-10.2 03/20/16 03/20/16 for Albumin 7:50am 4:32pm Cholesterol 170 mg/dL 120-200 03/20/16 03/20/16 Level 7:50am 4:48pm Triglycerides 66 mg/dL 03/20/16 03/20/16 The National Cholesterol Education Program Adult Treatment Level 7:50am 4:48pm Panel III (NCEP-ATP III) provides the following categories of triglycerides concentrations: Normal <150 mg/dL Borderline high 150-199 mg/dL High 200-499 mg/dL Very High >500 mg/dL NOTE: If the triglycerides are >400 mg/dL, a LDL will not be calculated in a lipid profile. Serum Total 6.6 gm/dL 6.4-8.2 03/20/16 03/20/16 Protein 7:50am 4:32pm Albumin 3.7 gm/dL 3.5-5.0 03/20/16 03/20/16 7:50am 4:32pm Total Bilirubin 0.7 mg/dL 0.0-1.0 03/20/16 03/20/16 7:50am 4:32pm Aspartate Amino 26 U/L 15-37 03/20/16 03/20/16 Transf 7:50am 4:32pm (AST/SGOT) Alanine 26 U/L 9-52 03/20/16 03/20/16 Aminotransferase 7:50am 4:32pm (ALT/SGPT) Alkaline 89 U/L 50-136 03/20/16 03/20/16 Phosphatase 7:50am 4:32pm Creatine Kinase 127 U/L 30-135 03/20/16 03/20/16 7:50am 4:32pm Hemoglobin A1c 5.7 % 03/20/16 03/20/16 %A1c (NGSP) Interpretation 7:50am 4:04pm <6.0 Non-Diabetic Range 6.0 - 7.0 ADA Therapeutic Target >7.0 Action Suggested LDL Cholesterol, 70 mg/dL 03/20/16 03/20/16 Calculated 7:50am 4:48pm HDL Cholesterol 87 mg/dL 03/20/16 03/20/16 The National Cholesterol Education Program (NCEP) has set 7:50am 4:48pm the following guidelines (reference values) for HDL cholesterol: HDL <35 mg/dL major risk factor for CHD HDL > or=60 mg/dL negative risk factor for CHD Cholesterol Risk 1.9 03/20/16 03/20/16 Factor 7:50am 4:48pm Procedures No Known History of Procedures. Encounters Encounter Location Arrival/Admit Date Discharge/Depart Date Attending Provider Departed [facility] 04/01/16 8:02pm 04/01/16 11:44pm EVONNE POTTER [facility] Registered [facility] 03/20/16 7:50am Flako Frederick [facility] Encounter Diagnosis Atrial fibrillation
--- OUTSIDE RECORDS SUMMARY | 2017-04-01 01:40 | External Medical Summary | Continuity of Care Document ---
:1930 Author Organization [facility]. Care Team Providers Name Role Phone Flako Frederick Primary Care Physician Insurance Providers Payer Name Policy Number Subscriber Name Relationship MEDICARE INPT & OUTPT [id number] ROSANA FOSTER SELF / SAME PATIENT [facility] [id number] ROSANA FOSTER SELF / SAME PATIENT Advance Directives Directive Response Recorded Date/Time Advance Directives: Yes 05/19/16 3:09pm Type: Durable Power of Tribal Judge 09/29/14 0:41am Problems Active Medical Problems Problem [...] Unknown 05/18/16 Active Hematoma Unknown 05/19/16 Active Medications Current Home Medications Medication Dose Units Route Directions Days/Qty Instructions Start Date Amiodarone 200 MG PO (Cordarone) 200 MG TABLET Apixaban (Eliquis) 5 MG PO Twice daily 60 DO NOT TAKE 10/04/14 5 MG TABLET UNTIL OCTOBER 12. Aspirin (Aspirin 81 MG PO Hold per patient Chewable) 81 MG request for TAB.CHEW choice of OTC or fill as prescription. Atorvastatin 10 MG PO At bedtime (Lipitor) 10 MG TABLET FLUoxetine 20 MG PO Once a day (PROzac) 20 MG CAPSULE HYDROcodone/Acetam 1-2 TAB PO Q4-6 HR PRN 15 05/18/16 inophen ([place]) 5 PAIN MG/325 MG TABLET Levothyroxine 0.075 MG PO Once a day at 7 (Synthroid) 0.075 AM (Fasting) MG TABLET Meclizine 12.5 MG PO (Antivert) 12.5 MG TABLET Metoprolol (ER) 12.5 MG PO Succinate (Toprol XL) 25 MG TABLET Past Home Medications Medication Directions Ordered [...] 325 Mg Po Atorvastatin (Lipitor) 10 Mg Once [...] At bedtime Unknown Discontinued Capsule Capsule, Hydrocodone/Acetaminophen ([place]) Every four hours PRN PAIN 10/04/14 Discontinued [...] Smoking status: Never smoker Hospital Discharge Instructions No hospital discharge instructions. Plan of Care Discharge Date 05/19/16 Disposition 01-HOME, SELF-CARE,ASST LIVING Condition at Discharge Stable Instructions/Education Provided Fall Prevention for Older Adults (ED) Hematoma (ED) Prescriptions See Medications Section Referrals Flako Frederick - Additional Instructions/Education HOLD ELIQUIS. HOLD ASPIRIN. FALL PRECAUTIONS. F/U WITH DR FREDERICK IN 2-3 DAYS. Some of your test results may not [...] worrisome symptoms. * Emergency Department phone number: [phone] MEDICAL RECORD If you need copies of your X-rays, call [phone]. If you need copies of your medical [...] SERVICE BILLING LIBERTARIAN Emergency [facility] Services [facility] [phone] X-rays [place] [facility] Patients will receive bills for services from the appropriate provider. If you have any questions about your [facility] bill, our staff will be happy to assist you. Please call [phone] and ask for the billing department. THANK YOU for choosing [facility]. as your emergency care provider. Care Plan and Goals ~~Discharge Care Plan~~ Problem: Back pain Goal: Decreased level of pain. Return to usual activities. Instructions: Take medication(s) as directed; follow up with primary care physician as directed; follow patient home care instructions. Apply ice or heat to site for comfort. 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 Equal: Y May 19, 2015 6:48pm [...] Vital Reading Collection Date/Time Result Blood Pressure 05/19/16 6:21pm 169/66 Blood Pressure Source 05/19/16 3:09pm Sitting Patient Temperature 05/19/16 3:09pm 97.8 Temperature Source 05/19/16 3:09pm Oral Respiratory Rate 05/19/16 6:21pm 16 Pulse Rate 05/19/16 6:21pm 59 Pulse Location 05/19/16 3:09pm [place] Bedside Pulse Oximetry 05/19/16 6:21pm 99 Height 05/19/16 3:09pm 170.2 cm Height 05/19/16 3:09pm 5 ft 7 in Weight 05/19/16 3:09pm 63.6 kg Weight 05/19/16 3:09pm 140.0 lb Body Mass Index 05/19/16 3:09pm 22.0 Results Laboratory Results Test Name Result Units Flags Reference Collection Result Comments Date/Time Date/Time Urine Collection CLEAN 05/19/16 05/19/16 Type CATCH 5:30pm 5:34pm Urine Color Yellow 05/19/16 05/19/16 5:30pm 5:51pm Urine Appearance Clear 05/19/16 05/19/16 5:30pm 5:51pm Urine Specific 1.030 1.005-1.03 05/19/16 05/19/16 [place] 5 5:30pm 5:51pm Urine pH 5 5-8 05/19/16 05/19/16 5:30pm 5:51pm Urine Protein Negative NEGATIVE 05/19/16 05/19/16 5:30pm 5:51pm Urine Glucose Negative NEGATIVE 05/19/16 05/19/16 5:30pm 5:51pm Urine Ketones 1+ H NEGATIVE 05/19/16 05/19/16 5:30pm 5:51pm Urine Bilirubin Negative NEGATIVE 05/19/16 05/19/16 5:30pm 5:51pm Urine Urobilinogen Negative mg/dL NEGATIVE 05/19/16 05/19/16 5:30pm 5:51pm Urine Nitrate Negative NEGATIVE 05/19/16 05/19/16 5:30pm 5:51pm Urine Blood Negative NEGATIVE 05/19/16 05/19/16 5:30pm 5:51pm Urine Leukocyte Negative NEGATIVE 05/19/16 05/19/16 Esterase 5:30pm 5:51pm Urine WBC 2-5 /hpf 05/19/16 05/19/16 5:30pm 5:51pm Urine RBC 0-2 /hpf 05/19/16 05/19/16 5:30pm 5:51pm Urine Squamous 2-5 /hpf 05/19/16 05/19/16 Epithelial Cells 5:30pm 5:51pm Urine Mucus Present /lpf 05/19/16 05/19/16 5:30pm 5:51pm Urine Bacteria None Seen /hpf 05/19/16 05/19/16 5:30pm 5:51pm White Blood Count 5.7 K/mm3 4.8-10.8 05/19/16 05/19/16 3:41pm 3:55pm Red Blood Count 3.87 M/mm3 L 4.10-5.30 05/19/16 05/19/16 3:41pm 3:55pm Hemoglobin 10.6 g/dl L 12.5-16.0 05/19/16 05/19/16 3:41pm 3:55pm Hematocrit 32.9 % L 37.0-47.0 05/19/16 05/19/16 3:41pm 3:55pm Mean Corpuscular 85 fl 80.0-100.0 05/19/16 05/19/16 Volume 3:41pm 3:55pm Mean Corpuscular 27 pg L 27.0-31.0 05/19/16 05/19/16 Hemoglobin 3:41pm 3:55pm Mean Corpuscular 32 g/dl L 33.0-37.0 05/19/16 05/19/16 Hemoglobin Concent 3:41pm 3:55pm Red Cell 16.5 % H 11.5-14.5 05/19/16 05/19/16 Distribution Width 3:41pm 3:55pm Platelet Count 152 K/mm3 130-400 05/19/16 05/19/16 3:41pm 3:55pm Mean Platelet 9.7 fl 7.4-10.4 05/19/16 05/19/16 Volume 3:41pm 3:55pm Granulocytes (%) 74.1 % 42.2-75.2 05/19/16 05/19/16 3:41pm 3:55pm Lymphocytes % 11.8 % L 20.0-51.0 05/19/16 05/19/16 3:41pm 3:55pm Monocytes % 12.3 % H 1.7-9.3 05/19/16 05/19/16 3:41pm 3:55pm Eosinophils % 0.7 % 0-4.0 05/19/16 05/19/16 3:41pm 3:55pm Basophils % 0.7 % 0.0-2.0 05/19/16 05/19/16 3:41pm 3:55pm Granulocytes # 4.2 1.4-6.5 05/19/16 05/19/16 3:41pm 3:55pm Lymphocytes # 0.7 L 1.2-3.4 05/19/16 05/19/16 3:41pm 3:55pm Monocytes # 0.7 H 0.1-0.6 05/19/16 05/19/16 3:41pm 3:55pm Eosinophils # 0.0 0.0-0.7 05/19/16 05/19/16 3:41pm 3:55pm Basophils # 0.0 0.0-0.2 05/19/16 05/19/16 3:41pm 3:55pm Prothrombin Time 18.1 SECONDS H 9.7-12.8 05/19/16 05/19/16 3:41pm 4:16pm INR International 1.6 0.8-3.0 05/19/16 05/19/16 Normalized Ratio 3:41pm 4:16pm Partial 28.9 SECONDS 26.0-37.0 05/19/16 05/19/16 Thromboplastin 3:41pm 4:14pm Time - [place] Glucose Level 94 mg/dL 74-106 05/19/16 05/19/16 3:41pm 4:03pm Blood Urea 23 mg/dL H 11-1805/19/16 05/19/16 Nitrogen 3:41pm 4:03pm Creatinine 1.02 mg/dL 0.52-1.25 05/19/16 05/19/16 3:41pm 4:03pm Estimated GFR 62 05/19/16 05/19/16 () 3:41pm 4:03pm Estimated GFR 51 05/19/16 05/19/16 eGFR Interpretation: (Non- 3:41pm 4:03pm [place] Chronic Kidney Disease=CKD CKD STAGE I > [...] nutritional status. Sodium Level 137 mmol/L 137-145 05/19/16 05/19/16 3:41pm 4:03pm Potassium Level 4.0 mmol/L 3.4-5.0 05/19/16 05/19/16 3:41pm 4:03pm Chloride Level 104 mmol/L 98-107 05/19/16 05/19/16 3:41pm 4:03pm Carbon Dioxide 27 mmol/L 22-30 05/19/16 05/19/16 Level 3:41pm 4:03pm Anion Gap 6 mmol/L L 7-05/19/16 05/19/16 3:41pm 4:03pm Calcium Level 9.4 mg/dL 8.4-10.2 05/19/16 05/19/16 3:41pm 4:03pm Calcium Adjusted 9.8 mg/dL 8.4-10.2 05/19/16 05/19/16 for Albumin 3:41pm 4:03pm Serum Total 6.1 gm/dL L 6.4-8.2 05/19/16 05/19/16 Protein 3:41pm 4:03pm Albumin 3.5 gm/dL 3.5-5.0 05/19/16 05/19/16 3:41pm 4:03pm Total Bilirubin 1.0 mg/dL 0.0-1.0 05/19/16 05/19/16 3:41pm 4:03pm Aspartate Amino 36 U/L 15-37 05/19/16 05/19/16 Transf (AST/SGOT) 3:41pm 4:03pm Alanine 41 U/L 9-52 05/19/16 05/19/16 Aminotransferase 3:41pm 4:03pm (ALT/SGPT) Alkaline 79 U/L 50-136 05/19/16 05/19/16 Phosphatase 3:41pm 4:03pm C-Reactive Protein 1.7 mg/dL H 0.0-0.9 05/19/16 05/19/16 3:41pm 4:03pm Procedures No Known History of Procedures. Encounters Encounter Location Arrival/Admit Date Discharge/Depart Date Attending Provider Departed Via [facility] 05/19/16 3:05pm 05/19/16 6:25pm EVONNE POTTER [facility] 05/19/16 2:38pm EVONNE POTTER [facility] J Departed Via [facility] 05/18/16 5:05am 05/18/16 6:15am Vivek Fajardo [facility] Encounter Diagnosis Fall Hematoma
--- OUTSIDE RECORDS SUMMARY | 2017-04-01 01:41 | External Medical Summary | Continuity of Care Document ---
:1930 Author Organization [facility]. Care Team Providers Name Role Phone Flako Frederick Primary Care Physician Unavailable Insurance Providers Payer Name Policy Number Subscriber Name Relationship MEDICARE INPT & OUTPT [id number] ROSANA FOSTER SELF / SAME PATIENT [facility] [id number] ROSANA FOSTER SELF / SAME PATIENT Advance Directives Directive Response Recorded Date/Time Advance Directives: Yes 09/29/14 0:41am Type: Durable Power of Inweaver 09/29/14 0:41am Chief Complaint and Reason for [...] ued 25 MG/37.5 MG CAPSULE Levothyroxine 38 ORAL 0700 07/02/07 Discontin Sodium MCG ued (Synthroid) TABLET Metoprolol 25 MG ORAL Once 07/02/07 Discontin Succinate daily ued (Toprol Xl) [address] Clopidogrel 75 MG ORAL Once 07/02/07 Discontin Bisulfate daily ued (Plavix) TABLET Potassium 10 ORAL Three 07/02/07 Discontin Chloride MEQ times ued (Potassium daily Chloride 10MEQ) 10 [...] Bisulfate daily ued (Plavix) TABLET Potassium 10 ORAL Three W/ MEALS 07/06/07 Discontin Chloride MEQ times ued (Klor-Con) 10 daily MEQ TABLET.SA Atorvastatin 10 MG ORAL At Active (Lipitor) 10 bedtime MG TABLET Calcium 1 TAB ORAL Twice PRN 07/06/07 Discontin Carbonate/Famo daily ued tidine (Pepcid Complete) 800 MG/10 MG CTB Calcium 2 TAB ORAL Once 07/31/13 Discontin Carbonate/Anna daily ued min D (Caltrate 600 + D 600 Mg-200 Iu) 1 TAB TAB Acetaminophen 500 ORAL As 07/31/13 Discontin (Tylenol Extra MG needed ued Strength) 500 MG TABLET Multivitamin 1 TAB ORAL Once 07/31/13 Discontin And Minerals4 daily ued (Centrum Multivitamin) 1 TAB TAB Cephalexin 500 ORAL As TAKES BEFORE 02/11/14 Discontin (Keflex *) 500 MG needed DENTAL AND ued MG CAPSULE OTHER INVASIVE PROCEDURES Hctz/Triamtere 2 CAP ORAL QAM 07/28/07 Discontin ne (Dyazide) ued 25 MG/37.5 MG CAPSULE Calcium 1 TAB ORAL Once 02/11/14 Discontin Carbonate/Famo daily ued tidine (Pepcid Complete) 800 MG/10 MG CTB Spironolactone 25 MG ORAL Once 07/31/13 Discontin (Aldactone daily ued 25MG) 25 MG TABLET Potassium 20 ORAL Once 07/28/07 Discontin Chloride MEQ daily ued (Kdur) 20 MEQ TABLET [DIAZIDE] MG ORAL QAM 07/28/07 Discontin ued Valsartan 80 MG ORAL Daily 07/31/13 Discontin (Diovan 80MG) at ued 80 MG TAB bedtime Hctz/Triamtere 1 CAP ORAL QAM 02/19/14 Discontin ne (Dyazide) ued 25 MG/37.5 MG CAPSULE Diphenhydramin 25-50 ORAL QHS PRN 08/09/08 Discontin e Hcl MG ued (Benadryl) CAPSULE Spironolactone 25 MG ORAL Once Active (Aldactone) 25 daily MG TABLET Gabapentin At Active (Neurontin) bedtime 100 MG CAPSULE Losartan 25 MG ORAL At 02/21/14 Discontin (Cozaar) 25 MG bedtime ued TABLET Aspirin 81 MG ORAL Once a Hold per Active (Aspirin day patient Chewable) 81 request for MG TAB.CHEW choice of OTC or fill as prescription. Multivitamin 1 CAP ORAL Once a 05/06/14 Discontin (Multiple day ued Vitamins) 1 CAP CAP Fish Oil 500 500 ORAL Once a 05/06/14 Discontin MG CAP MG day ued Calcium 1 CAP ORAL Once a 05/06/14 Discontin Carbonate/Anna day ued min D (Calcium) 1 CAP CAP FLUoxetine 20 MG ORAL Once a Active (PROzac) 20 MG day CAPSULE Apixaban 5 MG ORAL Twice Active (Eliquis) 5 MG daily TABLET Dronedarone 400 ORAL Twice Active (Multaq) 400 MG daily MG TABLET with food Rivastigmine 4.6 TRANSDERM Once a Active (Exelon Patch) MG AL day 4.6 MG PATCH Magnesium 30 ML ORAL PRN Active Hydroxide/Mine Constip ral (Milk Of ation Magnesia/Perishable Fruit Inspector al Oil 30 Ml) 30 ML LIQ Acetaminophen 325 ORAL Four Hold per Active (Tylenol) 325 MG times a patient MG TABLET day PRN request for Pain choice of OTC or fill as prescription. Meclizine 12.5 ORAL PRN Active (Antivert) MG DIZZINE 12.5 MG TABLET SS Multivitamin 1 TAB ORAL Active And [id number] (Multiple Vitamin W/Minerals No Iron) 1 TAB TAB Meclizine 25 MG ORAL TID PRN 30 Qty TAKE FOR 07/31/13 Discontin (Antivert) 25 DIZZINESS 13 ued MG TABLET Ondansetron 4 MG ORAL Q 6 HR 14 Qty TAKE FOR 07/31/13 Discontin (Zofran) 4 MG PRN NAUSEA 13 ued TABLET Meclizine 25 MG ORAL Three 10 Qty 02/21/ 03/04/14 Discontin (Antivert) 25 times 14 ued MG TABLET daily Family History Relationship Name Date of Condition [...] discharge instructions. Plan of Care Discharge Date 10/03/14 3:30am Disposition STILL A PATIENT Prescriptions See Medications Section Functional Status Query Response Date Recorded Paralysis: N October 02, 2014 8:00pm Steady Gait: N October 02, 2014 8:00pm Weakness: Y March 10, 2007 3:23pm Hand Venipuncturist Equal: Y October 02, 2014 8:00pm Contractures: N October 02, 2014 8:00pm Alert: Y October 26, 2004 5:27pm Oriented x4: N October 02, 2014 8:00pm Disoriented/Confused: Y October 02, 2014 8:00pm Drowsy: N October 02, 2014 8:00pm Lethargic: N October 02, 2014 8:00pm Unresponsive: N October 02, 2014 8:00pm Allergies, Adverse Reactions, Alerts Allergen Type Severity Reaction Status Last Updated SULFA (sulfonamide) Allergy Unknown Active 03/02/14 Trimethoprim Allergy Unknown Active 03/02/14 Sulfamethoxazole Allergy Unknown Active 03/02/14 VIOXX Allergy Unknown Active 11/22/11 Immunizations Name Date Given Type Tetanus More than 5 years ago Historical Hepatitis N Historical Vital Signs Vital Reading Collection Date/Time Result Blood Pressure 10/03/14 2:39am 134/76 Blood Pressure Source 10/03/14 2:39am TITUS Patient Temperature 10/03/14 1:33am 97.6 Temperature Source 10/03/14 1:33am O Respiratory Rate 10/03/14 2:39am 14 Pulse Rate 10/03/14 2:39am 116 Pulse Location 10/03/14 2:39am DYN Bedside Pulse Oximetry 10/03/14 2:39am 97 Height 09/29/14 11:16am 170.2 cm Height 09/29/14 11:16am 5 ft 7 in Weight 10/02/14 7:06am 66.9 kg Weight 10/02/14 7:06am 147.1 lb Body Mass Index 09/29/14 11:16am 23.1 Procedures No Known History of Procedures. Results [...] 0-3 /hpf 0 - 3 Urine Specific [place] 09/28/14 1.020 1.001 - 1.035 Urine Total Volume 09/28/14 12 mL - Urine Urobilinogen 09/28/14 NORMAL NORMAL - Urine WBC 09/28/14 0-3 /hpf 0 - 3 Urine pH 09/28/14 5.0 5.0 - 8.0 INR International 09/29/14 1.1 0.8 - 3.0 Normalized Ratio Prothrombin Time 09/29/14 12.8 SECONDS 9.7 - 12.8 Anion Gap 10/02/14 5 mmol/L L 7 - 16 Blood Urea Nitrogen 10/02/14 20 mg/dL H 7 - 17 Calcium Level 10/02/14 8.9 mg/dL 8.4 - 10.2 Carbon Dioxide Level 10/02/14 29 mmol/L 22 - 30 Chloride Level 10/02/14 100 mmol/L 98 - 107 Creatinine 10/02/14 0.81 mg/dL 0.52 - 1.04 Estimated GFR ( 10/02/14 81 - [place]) Estimated GFR 10/02/14 67 - (Non- Glucose Level 10/02/14 99 mg/dL 74 - 106 Potassium Level 10/02/14 4.1 mmol/L 3.4 - 5.0 Sodium Level 10/02/14 134 mmol/L L 137 - 145 Hematocrit 10/02/14 36.7 % L 37.0 - 47.0 Hemoglobin 10/02/14 12.3 g/dl L 12.5 - 16.0 Mean Corpuscular 10/02/14 31 pg 27.0 - 31.0 Hemoglobin Mean Corpuscular 10/02/14 34 g/dl 33.0 - 37.0 Hemoglobin Concent Mean Corpuscular Volume 10/02/14 92 fl 80.0 - 100.0 Mean Platelet Volume 10/02/14 10.2 fl 7.4 - 10.4 Platelet Count 10/02/14 147 K/mm3 130 - 400 Red Blood Count 10/02/14 4.01 M/mm3 L 4.10 - 5.30 Red Cell Distribution 10/02/14 13.9 % 11.5 - 14.5 Width White Blood Count 10/02/14 8.1 K/mm3 4.8 - 10.8 Basophils # 09/28/14 0.0 0.0 - 0.2 [...] 0-3 /hpf 0 - 3 Urine Specific [place] 09/28/14 1.020 1.001 - 1.035 Urine Total Volume 09/28/14 12 mL - Urine Urobilinogen 09/28/14 NORMAL NORMAL - Urine WBC 09/28/14 0-3 /hpf 0 - 3 Urine pH 09/28/14 5.0 5.0 - 8.0 INR International 09/29/14 1.1 0.8 - 3.0 Normalized Ratio Prothrombin Time 09/29/14 12.8 SECONDS 9.7 - 12.8 Anion Gap 10/02/14 5 mmol/L L 7 - 16 Blood Urea Nitrogen 10/02/14 20 mg/dL H 7 - Calcium Level 10/02/14 8.9 mg/dL 8.4 - 10.2 Carbon Dioxide Level 10/02/14 29 mmol/L 22 - Chloride Level 10/02/14 100 mmol/L 98 - 107 Creatinine 10/02/14 0.81 mg/dL 0.52 - 1.04 Estimated GFR ( 10/02/14 81 - [place]) Estimated GFR 10/02/14 67 - (Non- Glucose Level 10/02/14 99 mg/dL 74 - 106 Potassium Level 10/02/14 4.1 mmol/L 3.4 - 5.0 Sodium Level 10/02/14 134 mmol/L L 137 - 145 Hematocrit 10/02/14 36.7 % L 37.0 - 47.0 Hemoglobin 10/02/14 12.3 g/dl L 12.5 - 16.0 Mean Corpuscular 10/02/14 31 pg 27.0 - 31.0 Hemoglobin Mean Corpuscular 10/02/14 34 g/dl 33.0 - 37.0 Hemoglobin Concent Mean Corpuscular Volume 10/02/14 92 fl 80.0 - 100.0 Mean Platelet Volume 10/02/14 10.2 fl 7.4 - 10.4 Platelet Count 10/02/14 147 K/mm3 130 - 400 Red Blood Count 10/02/14 4.01 M/mm3 L 4.10 - 5.30 Red Cell Distribution 10/02/14 13.9 % 11.5 - 14.5 Width White Blood Count 10/02/14 8.1 K/mm3 4.8 - 10.8 Cholesterol Level 09/08/14 148 mg/dL 120 - [...] Encounters Encounter Location Date/Time Discharged Inpatient [facility] 10/03/14 3:30am Discharged Emergency [facility] 09/28/14 9:13pm Registered Clinical [facility] 09/28/14 6:12pm Registered Clinical [facility] 09/08/14 9:54am Recent Diagnosis Dehydration Vertigo Atrial fibrillation Dehydration Headache Weakness Bradycardia Dizziness Near syncope Dementia Closed left hip fracture
[2017-04-01 03:38] VITALS: BMI 18.6
[2017-04-01] MEDS ORDERED: CARBAMIDE PEROXIDE 6.5% EAR DROPS 15ml EACH EAR PRN (06:24)
[2017-04-01] MEDS ORDERED: LOPERAMIDE 2 MG CAPSULE PO PRN (06:24)
[2017-04-01] MEDS: CYANOCOBALAMIN (B-12) 500mcg TABLET PO SCH (08:43)
[2017-04-01] MEDS: ASPIRIN 81 MG CHEWABLE TABLET PO SCH (08:43)
[2017-04-01] MEDS: LEVOTHYROXINE 75 MCG TABLET PO SCH (08:43)
[2017-04-01] MEDS: GABAPENTIN 100 MG CAPSULE PO SCH (08:44)
[2017-04-01] MEDS: RIVASTIGMINE 13.3 MG/24 HR PATCH TD SCH (08:45)
[2017-04-01] MEDS: HYDROCODONE/APAP 5mg/325mg TABLET PO SCH ×2 (08:45→16:27)
[2017-04-01] MEDS: RIVASTIGMINE PATCH REMOVAL TD SCH (08:55)
[2017-04-01] MEDS ORDERED: HYDROCODONE/APAP 5mg/325mg TABLET PO SCH (09:00)
[2017-04-01] MEDS: HALOPERIDOL 5 MG/ML INJECTION IM PRN (10:12)
--- NOTE | 2017-04-01 10:13 | History & Physical Report ---
History of Present Illness Date: 04/01/17 Chief complaint: Dementia with behaviors HPI: Annie Dotson is a 86 yr old female who resides in [place], [place] at [facility]. It is reported that she has had increased verbal and physical aggressive behaviors for the past 4 weeks. Yesterday she wrapped a phone cord around her neck, stating that she "wanted to ." She was taken to [place] emergency room for acute medical evaluation. Her CBC was found to be normal, electrolytes and renal function reviewed. Sodium 136, potassium 3 0.6, BUNs 20, crit and 0.8. Her INR is 1.0. Her urinalysis did indicate, 1+ protein, trace ketones, 2+ blood, 2+ leukocyte esterase, greater than 50 rbc's and greater than 50 WBCs with many bacteria present. Patient was started on oral Macrobid at that time. She was then screened and accepted to the [facility]. Nursing staff overnight report . Patient was verbally and physically aggressive towards staff, initially requiring Haldol and Ativan. She was disoriented screaming profanity at staff throughout the night. This morning she is up eating breakfast. She will make eye contact and answer briefly with yes and no however appears to be annoyed by the interaction. She denies having pain or feeling short of breath. She is eating without difficulty. Review of Systems ROS unobtainable: due to mental status Review of systems: Denies all ROS [facility] Patient Stated Medical History Alzheimer's dementia Proximal atrial fibrillation Hypertension Hyperlipidemia Chronic kidney disease Congestive heart failure Neuropathy History of TIA Surgical History: Appendectomy-1957. Knee Replacement-2003. Cholecystectomy 1994. Thyroidectomy 1984. Bunionectomy 1984. Hiatal hernia -1998. Breast biopsy- 1995. Colonoscopy-2000 Family History: Father-hypertension Metastatic colon cancer. Mother at age 78 of heart disease. Brothers with coronary artery disease, hypertension. Daughter with hypertension - Social History Smoking status: Former smoker Substance use type: does not use Alcohol intake: current Alcohol intake frequency: holidays/special occasions only Housing: [facility] Current occupational status: retired Social history: Patient is a , she resides at [facility] in [place], [place]. Primary care provider, Dr. Arcelia Dallas Unit [employer]-Dr. Veloz [employer] [place]-Dr. Olivares Molder Apprentice Dr. oDnovan Medications Home Medications Medication Instructions Recorded Confirmed Type Amoxicillin 2,000 mg PO PRN PRN 04/01/17 04/01/17 History Aspirin Chewable [ASA] 81 mg PO DAILY 04/01/17 04/01/17 History Atorvastatin [Lipitor] 10 mg PO HS 04/01/17 04/01/17 History Carbamide Peroxide Ear Drops 5 - 10 drops EACH EAR PRN PRN 04/01/17 04/01/17 History [Debrox] Cyanocobalamin (Vitamin B-12) 1 tab PO DAILY 04/01/17 04/01/17 History [Vitamin B-12] Fluoxetine HCl [Prozac] 40 mg PO DAILY 04/01/17 04/01/17 History Gabapentin [Neurontin] 100 mg PO DAILY 04/01/17 04/01/17 History Hydrocodone/APAP 5/325 [[place] 1 tab PO BID PRN 04/01/17 04/01/17 History 5/325] Hydrocodone/APAP 5/325 [[place] 1 tab PO TID 04/01/17 04/01/17 History 5/325] Levothyroxine Tab [Synthroid] 75 mcg PO ACB 04/01/17 04/01/17 History Loperamide HCl [Imodium A-D] 2 mg PO PRN PRN MDD 4 doses 04/01/17 04/01/17 History Milk of Magnesia [Mom] 30 ml PO PRN PRN 04/01/17 04/01/17 History Ondansetron HCl [Zofran] 4 mg PO Q8HPRN PRN 04/01/17 04/01/17 History Quetiapine XR [SEROquel XR] 150 mg PO BID 04/01/17 04/01/17 History Quetiapine [Seroquel] 12.5 mg PO Q6HR PRN 04/01/17 04/01/17 History Rivastigmine Patch [Exelon Patch] 13.3 mg TD DAILY 04/01/17 04/01/17 History Trazodone [Desyrel] 50 mg PO HS 04/01/17 04/01/17 History Allergies Allergy/AdvReac Type Severity Reaction Status Date / Time rofecoxib [From Vioxx] Allergy Verified 04/01/17 04:23 Sulfa (Sulfonamide Allergy Verified 04/01/17 04:23 Antibiotics) trimethoprim Allergy Verified 04/01/17 04:23 Exam Vital Signs: Temperature 97.1 F 04/01/17 08:00 Pulse Rate 77 04/01/17 08:00 Respiratory Rate 18 04/01/17 08:00 Blood Pressure 154/95 H 04/01/17 08:00 Pulse Oximetry 99 04/01/17 08:00 Height/Weight/BMI: Height 1.68 m Weight 52.4 kg Body Mass Index 18.6 - Constitutional Present: no acute distress, well nourished, well developed - Routine HEENT Exam Eye: Present: EOMI, PERRL ENT: Present: mucous membranes moist, dentition normal - Routine Respiratory Exam Present: CTA bilaterally. Absent: wheezes - Routine Cardiovascular Exam Present: RRR, S1, S2. Absent: murmur - Routine Abdominal Exam Present: soft, normoactive bowel sounds, non distended. Absent: tenderness - Routine Extremities Exam Present: no edema - Routine Skin Exam Present: intact, dry, warm - Routine Neurological Exam Present: alert, CN II-XII intact, moving all extremities - Routine Psychiatric Exam Present: cooperative Results - Labs CBC & Chem 7: 04/01/17 06:57 04/01/17 06:57 Assessment and Plan (1) Dementia with behavioral disturbance Current visit: Yes Status: Acute Assessment and Plan: Impression Dementia with behavior UTI- POA diagnosed on 03/31 while getting clearance at [place] emergency room. Started on Macrobid Paroxysmal atrial fibrillation Hypertension CKD Congestive heart failure Hyperlipidemia History of TIA Plan Agree with admission to the [facility] unit under the care of Dr. Ramirez for further psychiatric evaluation and treatment. We will continue with treatment of acute urinary tract infection on Macrobid twice a day through 04/07/17 Chronic medications reviewed. It does not appear that patient is on chronic anticoagulation for paroxysmal atrial fibrillation. She does take a baby aspirin daily. Admission labs from this morning are reviewed. TSH is slightly elevated at 5.32. Would recommend following this in the outpatient setting, as this can elevate secondary to antipsychotic medications. Encourage patient to participate in unit activities and provide a safe environment. Hospital services will continue to follow patient in medical management. Existing comorbidities during his stay on the [facility] unit. At time of discharge medical care is to return back to primary care provider in [facility] Dr. Riri Rubio M.D. 04/01/17 9 PM I have independently evaluated and examined this patient. I reviewed the chart, the patient's history, and the [employer]/PA's documented findings as above. We discussed and formulated the assessment and plan as above with additions as below: Mrs. Mendoza was sleeping in the day room when seen. She did not awaken to voice but did awaken to exam at which time she advised me that she was having no pain and that she lived in [place]. She denied dyspnea. Patient remained drowsy and speech was somewhat mumbled on exam Pupils 4 mm, equal, and react to light, conjugate gaze; tongue midline, membranes dry Respirations nonlabored, poor inspiratory effort but anterior breath sounds clear Regular rhythm Atmospheric Sciences Professor are strong and patient wiggles her feet symmetrically, does not attempt to raise her legs proximally and poor effort raising her arms but symmetric Sensation intact to touch 4 extremities Calm at the time of my assessment, falls asleep when not being actively stimulated. Laboratory data reviewed and unremarkable-A1c 5.5, TSH 5.32, Total cholesterol 150, LDL 71; B-12/folic acid pending. Received ceftriaxone IM earlier today due to inability to maintain oral intake following sedation-resume oral antibiotics if able tomorrow. Continue supportive environment. Thank you for allowing us to participate in this patient's care Resuscitation Status: Do Not Resuscitate Hospital Course Summary Disclaimer: The visit summary below is not to be considered part of the above Progress Note. Hospital Course: 04/01/17 Impression Dementia with behavior UTI- POA diagnosed on 03/31 while getting clearance at [place] emergency room. Started on Macrobid Paroxysmal atrial fibrillation Hypertension CKD Congestive heart failure Hyperlipidemia History of TIA Plan Agree with admission to the [facility] unit under the care of Dr. Ramirez for further psychiatric evaluation and treatment. We will continue with treatment of acute urinary tract infection on Macrobid twice a day through 04/07/17 Chronic medications reviewed. It does not appear that patient is on chronic anticoagulation for paroxysmal atrial fibrillation. She does take a baby aspirin daily. Admission labs from this morning are reviewed. TSH is slightly elevated at 5.32. Would recommend following this in the outpatient setting, as this can elevate secondary to antipsychotic medications. Encourage patient to participate in unit activities and provide a safe environment. Hospital services will continue to follow patient in medical management. Existing comorbidities during his stay on the [facility] unit. At time of discharge medical care is to return back to primary care provider in [place], [place], Dr. Riri Dallas Addendum entered and electronically signed by Bianca Tong APRN 04/01/17 11 :54: Nursing staff report patient has had increased behaviors requiring Haldol and Ativan. Staff reports patient will not be compliant with taking oral Macrobid currently. We will give a one-time dose of IM Rocephin 1 gram for treatment of UTI. Nursing staff will Non-admin today's doses of Macrobid.
[2017-04-01] MEDS: NITROFURANTOIN (MACROBID) 100 MG CAPSULE PO SCH ×2 (11:51→16:49)
[2017-04-01] MEDS ORDERED: CEFTRIAXONE 1 G INJECTION IM ONE (11:54)
[2017-04-01] MEDS ORDERED: LIDOCAINE 1% (10mg/ml) 5ml PF SDV ID ONE (13:00)
--- NOTE | 2017-04-01 18:23 | 24 Hour Neuropsychiatic Eval ---
Date of Admission: 04/01/17 01:17 Chief complaint: Agitation History of Present Illness: Patient is an 86-year-old female who was admitted to [facility] overnight (04/01/17) from [facility] in [place], [place] due to increased verbal and physical aggression x 4 weeks. She wrapped a phone cord around her neck on 03/31 stating she wanted to . Patient was quite agitated last night when she was admitted, requiring Haldol 1mg IM and restraints. Patient reportedly calmed this morning until become agitated again this afternoon requiring another 1mg of Haldol IM. She was thus quite sedated and could not participate in interview with me today. Per hospitalist: "She was taken to [place] emergency room for acute medical evaluation. Her CBC was found to be normal, electrolytes and renal function reviewed. Sodium 136, potassium 3 0.6, BUNs 20, crit and 0.8. Her INR is 1.0. Her urinalysis did indicate, 1+ protein, trace ketones, 2+ blood, 2+ leukocyte esterase, greater than 50 rbc's and greater than 50 WBCs with many bacteria present. Patient was started on oral Macrobid at that time." [facility] Patient Stated Medical History Alzheimer's Disease Yes Dementia Yes Transient Ischemic Attacks ( Yes TIA) Cardiac Arrhythmia Yes: Paroxysmal AFIB Hypertension Yes Sleep Apnea Yes Hx Urinary Tract Infection Yes Osteoarthritis Yes Clinic Medical History Dementia with behavioral disturbance (Acute Medical) Surgical History: Appendectomy-1957. Knee Replacement-2003. Cholecystectomy 1994. Thyroidectomy 1984. Bunionectomy 1984. Hiatal hernia -1998. Breast biopsy- 1995. Colonoscopy-2000 Family History: Unable to obtain from patient - will reassess when awake - Social History Smoking status: Former smoker Social history: Will assess further strengths once awake. Patient does have current placement. Review of Systems ROS unobtainable: due to mental status Mental Status Exam Vitals: Last Vital Signs Temp 97.6 F 04/01/17 15:25 Pulse 64 04/01/17 15:25 Resp 16 04/01/17 15:25 BP 144/80 H 04/01/17 15:25 Pulse Ox 95 04/01/17 15:25 Height: 1.68 m Weight: 52.4 kg - Mental Status Exam Muscle Strength/Tone: Other (unable to assess due to sedation) Dressing: Casual Grooming: Fair Attitude: Combative Motor Activity: Other (currently sedated) Eye Contact: Other (currently sedated) Speech: Other (unable to assess due to sedation) Volume: Loud (overheard on phone during admission) Rhythm: Other (unable to assess due to sedation) Orientation: Other (unable to assess due to sedation) Mood: Other (unable to assess due to sedation) Rate of Thoughts: Other (unable to assess due to sedation) Thought Organization: Other (unable to assess due to sedation) Associations: Other (unable to assess due to sedation) Abstract Reasoning: Other (unable to assess due to sedation) Thought Content: Other (unable to assess due to sedation) Perception/Psychotic: Other (unable to assess due to sedation) Language: Other (unable to assess due to sedation) Fund of Knowledge: Other (unable to assess due to sedation) Memory: Other (unable to assess due to sedation) Suicidal Ideation: Plan (made attempt by wrapping phone cord around neck on ) Homicidal Ideation: Other (unable to assess due to sedation) Insight: Impaired Judgement: Impaired Impulse Control: Poor - Laboratory Result Diagrams: 04/01/17 06:57 04/01/17 06:57 Laboratory Results - last 24 hr 04/01/17 04/01/17 04/01/17 06:57 06:57 06:57 WBC 6.0 RBC 4.42 Hgb 13.0 Hct 39.0 MCV 88.2 MCH 29.4 MCHC 33.3 RDW Std Deviation 48.2 Plt Count 167 MPV 9.6 Immature Gran % (Auto) 0.0 Neut % (Auto) 73.8 H Lymph % (Auto) 17.3 L Trigg % (Auto) 8.1 Eos % (Auto) 0.5 Baso % (Auto) 0.3 Neut # (Auto) 4.4 Lymph # (Auto) 1.0 Trigg # (Auto) 0.5 Eos # (Auto) 0.0 Baso # (Auto) 0.0 Abs Immat Gran (auto) 0.00 Turbidity < 20 Sodium 141 Potassium 3.6 Chloride 105 Carbon Dioxide 28 Anion Gap 8 BUN 14.0 Creatinine 0.8 GFR Calculation 68 BUN/Creatinine Ratio 18 Glucose 86 Hemoglobin A1c 5.5 L Calculated Osmolality 271 Calcium 9.7 Total Bilirubin 0.80 Icterus Index < 2 AST 32 ALT 23 Alkaline Phosphatase 97 Total Protein 6.3 Albumin 3.5 Globulin 2.8 Albumin/Globulin Ratio 1.3 Triglycerides 80 Cholesterol 150 LDL Cholesterol, Calc 71.0 VLDL Cholesterol 16.0 HDL Cholesterol 63 H Cholesterol/HDL Ratio 2.4 TSH 5.32 H Specimen Hemolysis < 15 Assessment and Plan (1) Suicidal ideation Current visit: Yes Status: Acute (2) Dementia with behavioral disturbance Current visit: Yes Status: Acute Admit to [facility]. Maintain safety and elopement precautions. Obtain additional history from family. Consult hospitalist for optimization of comorbidities. Continue home medications for the time being - will begin to simplify and decrease narcotics, muscle relaxers. Will request CBC, CMP, TSH with reflex free T4, UA, Vitamin B12 and folate levels. Consider EKG and additional imaging. Monitor mood and behavior.
[2017-04-02] MEDS: LEVOTHYROXINE 75 MCG TABLET PO SCH (05:52)
[2017-04-02] MEDS: RIVASTIGMINE 13.3 MG/24 HR PATCH TD SCH (08:20)
[2017-04-02] MEDS: HYDROCODONE/APAP 5mg/325mg TABLET PO SCH ×4 (08:21→20:11)
[2017-04-02] MEDS: GABAPENTIN 100 MG CAPSULE PO SCH (08:21)
[2017-04-02] MEDS: CYANOCOBALAMIN (B-12) 500mcg TABLET PO SCH (08:22)
[2017-04-02] MEDS: NITROFURANTOIN (MACROBID) 100 MG CAPSULE PO SCH ×2 (08:22→17:04)
[2017-04-02] MEDS: ASPIRIN 81 MG CHEWABLE TABLET PO SCH (08:22)
[2017-04-02] MEDS: RIVASTIGMINE PATCH REMOVAL TD SCH (08:51)
[2017-04-02] MEDS: LORazepam 0.5 MG TABLET PO PRN (12:50)
[2017-04-02] MEDS: HALOPERIDOL 0.5 MG TABLET PO PRN (17:27)
[2017-04-02] MEDS: TRAZODONE 50 MG TABLET PO SCH ×2 (18:14→20:11)
--- NOTE | 2017-04-02 20:48 | Neuropsych Progress Note ---
[facility] Subjective Date: 04/02/17 - Sujective/Severity of Illness Medications: Hydrocodone Bitart/Acetaminophen ([place] 5/325) 0.5 tab PO TID [facility] Last Admin: 04/02/17 20:11 Dose: 0.5 tab Aspirin (Asa) 81 mg PO DAILY [facility] Last Admin: 04/02/17 08:22 Dose: 81 mg Carbamide Peroxide (Debrox) 5 - 10 drops EACH EAR PRN PRN PRN Reason: wax build up Cyanocobalamin (Vit. B-12) 1,000 mcg PO DAILY [facility] Last Admin: 04/02/17 08:22 Dose: 1,000 mcg Gabapentin (Neurontin) 100 mg PO DAILY [facility] Last Admin: 04/02/17 08:21 Dose: 100 mg Haloperidol (Haldol) 1 mg PO Q6H PRN PRN Reason: Extreme agitation Last Admin: 04/02/17 17:27 Dose: 1 mg Haloperidol Lactate (Haldol) 1 mg IM Q6H PRN PRN Reason: Extreme agitation Last Admin: 04/01/17 10:12 Dose: 1 mg Levothyroxine Sodium (Synthroid) 75 mcg PO ACB [facility] Last Admin: 04/02/17 05:52 Dose: 75 mcg Loperamide HCl (Imodium) 2 mg PO PRN PRN PRN Reason: Loose stools Lorazepam (Ativan Inj) 0.5 mg IM Q6H PRN PRN Reason: Extreme agitation Last Admin: 04/01/17 10:12 Dose: 0.5 mg Lorazepam (Ativan) 0.5 mg PO Q6H PRN PRN Reason: Extreme agitation Last Admin: 04/02/17 12:50 Dose: 0.5 mg Magnesium Hydroxide (Mom) 30 ml PO PRN PRN PRN Reason: Constipation Nitrofurantoin Macrocrystals (Macrobid) 100 mg PO BIDWM [facility] Stop: 04/07/17 09:00 Last Admin: 04/02/17 17:04 Dose: 100 mg Quetiapine Fumarate (Seroquel Xr) 150 mg PO BID [facility] Last Admin: 04/02/17 20:10 Dose: 150 mg Rivastigmine (Exelon Patch) 13.3 mg TD DAILY [facility] Last Admin: 04/02/17 08:20 Dose: 13.3 mg Rivastigmine (Exelon Patch Removal) 1 removal TD DAILY [facility] Last Admin: 04/02/17 08:51 Dose: 1 removal Trazodone HCl (Desyrel) 50 mg PO HS [facility] Last Admin: 04/02/17 20:11 Dose: 50 mg Subjective: Patient seen and chart reviewed. Case discussed with treatment team. On interview, patient is pleasant though confused. She has no insight into symptoms or hospitalization. She believes she is here because she was on a trip with her and he got too far ahead of her for her to catch up. She inquires about him repeatedly but is not in distress and does not appear depressed. Patient denies any SI, HI or AVH. Patient denies any adverse side effects related to psychotropic medications. Nursing staff report patient became more agitated, using foul language and was given Ativan 0.5mg PO today. SLUMS score of 1. Patient slept 11 hours overnight. VSS. Patient is eating well. Start Time: 14:20 Stop Time: 14:40 Mental Status Exam Vitals: Last Vital Signs Temp 97.2 F 04/02/17 16:00 Pulse 86 04/02/17 16:00 Resp 16 04/02/17 16:00 BP 157/71 H 04/02/17 16:00 Pulse Ox 95 04/02/17 16:00 Height: 1.68 m Weight: 52.4 kg - Mental Status Exam Muscle Strength/Tone: Normal Dressing: Casual Grooming: Good Attitude: Cooperative (on interview, varies with staff) Motor Activity: Normal Eye Contact: Good Speech: Normal Volume: Normal Rhythm: Appropriate Rhythm, Other (unable to assess due to sedation) Sensory: Alert Orientation: Disoriented to time, Disoriented to place, Disoriented to situation , Oriented to person Mood: Neutral (labile affect though calm during interview) Rate of Thoughts: Delayed Thought Organization: Confused Associations: Illogical Abstract Reasoning: Poor abstract reasoning Thought Content: Other (wonders where is, no insight into symptoms/ hospitalization) Perception/Psychotic: Perception Normal Language: Naming Impaired Fund of Knowledge: Poor fund of knowledge Memory: Poor-immediate, Poor-recent Suicidal Ideation: Denies, Plan (made attempt by wrapping phone cord around neck on 03/31) Homicidal Ideation: Denies, Other (unable to assess due to sedation) Insight: Impaired Judgement: Impaired Impulse Control: Poor - Laboratory Result Diagrams: 04/01/17 06:57 04/01/17 06:57 Laboratory Results - last 24 hr 04/01/17 06:57 Vitamin B12 > 1000 H Folate 10.6 Assessment and Plan (1) Suicidal ideation Current visit: Yes Status: Acute (2) Psychosis Qualifiers: Psychosis type: unspecified psychosis type Qualified Code(s): F29 - Unspecified psychosis not due to a substance or known physiological condition Current visit: Yes Status: Acute r/o Delirium secondary to UTI (3) Dementia with behavioral disturbance Current visit: Yes Status: Acute (4) UTI (urinary tract infection) Current visit: Yes Status: Acute Hospital Course Summary Disclaimer: The visit summary below is not to be considered part of the above Progress Note. Hospital Course: 04/01/17 Impression Dementia with behavior UTI- POA diagnosed on 03/31 while getting clearance at [facility] emergency room. Started on Macrobid Paroxysmal atrial fibrillation Hypertension CKD Congestive heart failure Hyperlipidemia History of TIA Plan Agree with admission to the [facility] under the care of Dr. Ramirez for further psychiatric evaluation and treatment. We will continue with treatment of acute urinary tract infection on Macrobid twice a day through 04/07/17 Chronic medications reviewed. It does not appear that patient is on chronic anticoagulation for paroxysmal atrial fibrillation. She does take a baby aspirin daily. Admission labs from this morning are reviewed. TSH is slightly elevated at 5.32. Would recommend following this in the outpatient setting, as this can elevate secondary to antipsychotic medications. Encourage patient to participate in unit activities and provide a safe environment. Hospital services will continue to follow patient in medical management. Existing comorbidities during his stay on the [facility]. At time of discharge medical care is to return back to primary care provider in [place], [place], Dr. Riri Dallas 04/02/17 Psych: Patient improving from admission but continues to have mood lability, SI resolving - continue current care, monitor mood and behavior and discuss with DPOA whether antipsychotic will be beneficial. Calms well with Ativan though can exacerbate confusion, increase fall risk.
[2017-04-03] MEDS: NITROFURANTOIN (MACROBID) 100 MG CAPSULE PO SCH ×3 (08:45→19:11)
[2017-04-03] MEDS: LEVOTHYROXINE 75 MCG TABLET PO SCH (08:45)
[2017-04-03] MEDS: GABAPENTIN 100 MG CAPSULE PO SCH (08:46)
[2017-04-03] MEDS: CYANOCOBALAMIN (B-12) 500mcg TABLET PO SCH (08:46)
[2017-04-03] MEDS: ASPIRIN 81 MG CHEWABLE TABLET PO SCH (08:46)
[2017-04-03] MEDS: HYDROCODONE/APAP 5mg/325mg TABLET PO SCH ×4 (08:46→22:45)
[2017-04-03] MEDS: RIVASTIGMINE 13.3 MG/24 HR PATCH TD SCH (08:49)
[2017-04-03] MEDS: RIVASTIGMINE PATCH REMOVAL TD SCH (08:50)
--- NOTE | 2017-04-03 11:02 | Progress Note ---
- Date 04/03/17 Subjective: Annie Dotson is seen this morning during breakfast. She is alert,cooperative and pleasant without complaints. She states she should have slept longer as she feels tired. She denies having any pain or feeling short of breath. No GI concerns, appetite is good. BP reported was elevated at 167/111. Objective Vital signs: Temperature 97.9 F 04/03/17 08:00 Pulse Rate 75 04/03/17 08:00 Respiratory Rate 16 04/03/17 08:00 Blood Pressure 167/111 H 04/03/17 08:00 Pulse Oximetry 92 04/03/17 08:00 Height/Weight/BMI: Height 1.68 m Weight 52.4 kg Body Mass Index 18.6 - Constitutional Present: no acute distress, well nourished, well developed - Routine HEENT Exam Eye: Present: EOMI ENT: Present: mucous membranes moist, dentition normal - Routine Respiratory Exam Present: CTA bilaterally. Absent: wheezes - Routine Cardiovascular Exam Present: RRR, S1, S2. Absent: murmur - Routine Abdominal Exam Present: soft, normoactive bowel sounds, non distended. Absent: tenderness - Routine Extremities Exam Present: no edema - Routine Back/Spine/Pelvis Exam Back/Spine: Present: full ROM - Routine Skin Exam Present: intact, dry, warm - Routine Neurological Exam Present: alert, CN II-XII intact, moving all extremities - Routine Lymphatic Exam Lymphatic: Absent: adenopathy - Routine Psychiatric Exam Present: cooperative Results - Labs CBC & Chem 7: 04/01/17 06:57 04/01/17 06:57 Assessment and Plan (1) Dementia with behavioral disturbance Current visit: Yes Status: Acute Assessment and Plan: Impression Dementia with behavior UTI- POA diagnosed on 03/31 while getting clearance at [facility] emergency room. Started on Macrobid Paroxysmal atrial fibrillation Hypertension CKD Congestive heart failure Hyperlipidemia History of TIA Plan Continues on Macrobid for treatment of UTI. Course complete on 04/07. Asked nursing staff to recheck BP as it was elevated this morning. Otherwise appears to be medically stable. No reports behaviors overnight. Continue to encourage participation in unit activities Hospital Course Summary Disclaimer: The visit summary below is not to be considered part of the above Progress Note. Hospital Course: 04/01/17 Impression Dementia with behavior UTI- POA diagnosed on 03/31 while getting clearance at [facility] emergency room. Started on Macrobid Paroxysmal atrial fibrillation Hypertension CKD Congestive heart failure Hyperlipidemia History of TIA Plan Agree with admission to the [facility] under the care of Dr. Ramirez for further psychiatric evaluation and treatment. We will continue with treatment of acute urinary tract infection on Macrobid twice a day through 04/07/17 Chronic medications reviewed. It does not appear that patient is on chronic anticoagulation for paroxysmal atrial fibrillation. She does take a baby aspirin daily. Admission labs from this morning are reviewed. TSH is slightly elevated at 5.32. Would recommend following this in the outpatient setting, as this can elevate secondary to antipsychotic medications. Encourage patient to participate in unit activities and provide a safe environment. Hospital services will continue to follow patient in medical management. Existing comorbidities during his stay on [facility]. At time of discharge medical care is to return back to primary care provider in [place], [place], Dr. Riri Dallas 04/02/17 Psych: Patient improving from admission but continues to have mood lability, SI resolving - continue current care, monitor mood and behavior and discuss with DPOA whether antipsychotic will be beneficial. Calms well with Ativan though can exacerbate confusion, increase fall risk. 04/03/17- Overall doing well. Continues on Macrobid through 04/07 for tx of UTI. Monitor blood pressure.
--- NOTE | 2017-04-03 16:33 | Neuropsych Progress Note ---
[facility] Subjective Date: 04/03/17 - Sujective/Severity of Illness Medications: Hydrocodone Bitart/Acetaminophen ([place] 5/325) 0.5 tab PO TID [facility] Last Admin: 04/03/17 16:19 Dose: 0.5 tab Aspirin (Asa) 81 mg PO DAILY [facility] Last Admin: 04/03/17 08:46 Dose: 81 mg Carbamide Peroxide (Debrox) 5 - 10 drops EACH EAR PRN PRN PRN Reason: wax build up Cyanocobalamin (Vit. B-12) 1,000 mcg PO DAILY [facility] Last Admin: 04/03/17 08:46 Dose: 1,000 mcg Gabapentin (Neurontin) 100 mg PO DAILY [facility] Last Admin: 04/03/17 08:46 Dose: 100 mg Haloperidol (Haldol) 1 mg PO Q6H PRN PRN Reason: Extreme agitation Last Admin: 04/02/17 17:27 Dose: 1 mg Haloperidol Lactate (Haldol) 1 mg IM Q6H PRN PRN Reason: Extreme agitation Last Admin: 04/01/17 10:12 Dose: 1 mg Levothyroxine Sodium (Synthroid) 75 mcg PO ACB [facility] Last Admin: 04/03/17 08:45 Dose: 75 mcg Loperamide HCl (Imodium) 2 mg PO PRN PRN PRN Reason: Loose stools Lorazepam (Ativan Inj) 0.5 mg IM Q6H PRN PRN Reason: Extreme agitation Last Admin: 04/03/17 10:09 Dose: 0.5 mg Lorazepam (Ativan) 0.5 mg PO Q6H PRN PRN Reason: Extreme agitation Last Admin: 04/02/17 12:50 Dose: 0.5 mg Magnesium Hydroxide (Mom) 30 ml PO PRN PRN PRN Reason: Constipation Nitrofurantoin Macrocrystals (Macrobid) 100 mg PO BIDWM [facility] Stop: 04/07/17 09:00 Last Admin: 04/03/17 16:19 Dose: 100 mg Quetiapine Fumarate (Seroquel Xr) 150 mg PO BID [facility] Last Admin: 04/03/17 08:48 Dose: 150 mg Rivastigmine (Exelon Patch) 13.3 mg TD DAILY [facility] Last Admin: 04/03/17 08:49 Dose: 13.3 mg Rivastigmine (Exelon Patch Removal) 1 removal TD DAILY [facility] Last Admin: 04/03/17 08:50 Dose: 1 removal Trazodone HCl (Desyrel) 50 mg PO HS [facility] Last Admin: 04/02/17 20:11 Dose: 50 mg Subjective: Patient seen and chart reviewed. Case discussed with treatment team. Patient is sleeping during rounds - MSE below based on interview yesterday when awake. Nursing staff report patient again became agitated this morning requring AM medication. Patient slept well overnight. VSS. Patient is eating well. Start Time: 06:45 Stop Time: 07:00 Mental Status Exam Vitals: Last Vital Signs Temp 97.6 F 04/03/17 12:53 Pulse 82 04/03/17 12:53 Resp 16 04/03/17 12:53 BP 131/79 04/03/17 12:53 Pulse Ox 92 04/03/17 08:00 Height: 1.68 m Weight: 52.4 kg - Mental Status Exam Muscle Strength/Tone: Normal Dressing: Casual Grooming: Good Attitude: Cooperative (on interview, varies with staff) Motor Activity: Normal Eye Contact: Good Speech: Normal Volume: Normal Rhythm: Appropriate Rhythm, Other (unable to assess due to sedation) Orientation: Disoriented to time, Disoriented to place, Disoriented to situation , Oriented to person Mood: Neutral (labile affect though calm during interview) Rate of Thoughts: Delayed Thought Organization: Confused Associations: Illogical Abstract Reasoning: Poor abstract reasoning Thought Content: Other (wonders where is, no insight into symptoms/ hospitalization) Perception/Psychotic: Perception Normal Language: Naming Impaired Fund of Knowledge: Poor fund of knowledge Memory: Poor-immediate, Poor-recent Suicidal Ideation: Denies, Plan (made attempt by wrapping phone cord around neck on 03/31) Homicidal Ideation: Denies, Other (unable to assess due to sedation) Insight: Impaired Judgement: Impaired Impulse Control: Poor - Laboratory Result Diagrams: 04/01/17 06:57 04/01/17 06:57 Assessment and Plan (1) Suicidal ideation Current visit: Yes Status: Acute (2) Psychosis Qualifiers: Psychosis type: unspecified psychosis type Qualified Code(s): F29 - Unspecified psychosis not due to a substance or known physiological condition Current visit: Yes Status: Acute (3) Dementia with behavioral disturbance Current visit: Yes Status: Acute (4) UTI (urinary tract infection) Current visit: Yes Status: Acute Hospital Course Summary Disclaimer: The visit summary below is not to be considered part of the above Progress Note. Hospital Course: 04/01/17 Impression Dementia with behavior UTI- POA diagnosed on 03/31 while getting clearance at [place] emergency room. Started on Macrobid Paroxysmal atrial fibrillation Hypertension CKD Congestive heart failure Hyperlipidemia History of TIA Plan Agree with admission to [facility] under the care of Dr. Ramirez for further psychiatric evaluation and treatment. We will continue with treatment of acute urinary tract infection on Macrobid twice a day through 04/07/17 Chronic medications reviewed. It does not appear that patient is on chronic anticoagulation for paroxysmal atrial fibrillation. She does take a baby aspirin daily. Admission labs from this morning are reviewed. TSH is slightly elevated at 5.32. Would recommend following this in the outpatient setting, as this can elevate secondary to antipsychotic medications. Encourage patient to participate in unit activities and provide a safe environment. Hospital services will continue to follow patient in medical management. Existing comorbidities during his stay on [facility]. At time of discharge medical care is to return back to primary care provider in [place], [place], Dr. Riri Dallas 04/02/17 Psych: Patient improving from admission but continues to have mood lability, SI resolving - continue current care, monitor mood and behavior and discuss with DPOA whether antipsychotic will be beneficial. Calms well with Ativan though can exacerbate confusion, increase fall risk. 04/03/17- Overall doing well. Continues on Macrobid through 04/07 for tx of UTI. Monitor blood pressure. 04/03/17 Psych: Will plan to start Haldol 0.5mg PO BID to target behaviors after obtaining consent from DPOA.
[2017-04-03] MEDS: HALOPERIDOL 0.5 MG TABLET PO PRN (17:15)
[2017-04-03] MEDS: TRAZODONE 50 MG TABLET PO SCH ×2 (19:38→22:48)
[2017-04-04] MEDS: GABAPENTIN 100 MG CAPSULE PO SCH (08:31)
[2017-04-04] MEDS: NITROFURANTOIN (MACROBID) 100 MG CAPSULE PO SCH ×2 (08:31→17:26)
[2017-04-04] MEDS: ASPIRIN 81 MG CHEWABLE TABLET PO SCH (08:31)
[2017-04-04] MEDS: CYANOCOBALAMIN (B-12) 500mcg TABLET PO SCH (08:31)
[2017-04-04] MEDS: HYDROCODONE/APAP 5mg/325mg TABLET PO SCH ×2 (08:32→20:39)
[2017-04-04] MEDS: RIVASTIGMINE 13.3 MG/24 HR PATCH TD SCH (08:33)
[2017-04-04] MEDS: RIVASTIGMINE PATCH REMOVAL TD SCH (08:34)
[2017-04-04] MEDS: LEVOTHYROXINE 75 MCG TABLET PO SCH (08:53)
[2017-04-04] MEDS: HALOPERIDOL 5 MG/ML INJECTION IM PRN (10:06)
[2017-04-04] MEDS: HALOPERIDOL 0.5 MG TABLET PO PRN (16:19)
[2017-04-04] MEDS: LORazepam 0.5 MG TABLET PO PRN (16:19)
--- NOTE | 2017-04-04 18:10 | Neuropsych Progress Note ---
[facility] Subjective Date: 04/04/17 - Sujective/Severity of Illness Medications: Hydrocodone Bitart/Acetaminophen ([place] 5/325) 0.5 tab PO BID [facility] Last Admin: 04/04/17 08:32 Dose: 0.5 tab Aspirin (Asa) 81 mg PO DAILY [facility] Last Admin: 04/04/17 08:31 Dose: 81 mg Carbamide Peroxide (Debrox) 5 - 10 drops EACH EAR PRN PRN PRN Reason: wax build up Cyanocobalamin (Vit. B-12) 1,000 mcg PO DAILY [facility] Last Admin: 04/04/17 08:31 Dose: 1,000 mcg Gabapentin (Neurontin) 100 mg PO DAILY [facility] Last Admin: 04/04/17 08:31 Dose: 100 mg Haloperidol (Haldol) 1 mg PO Q6H PRN PRN Reason: Extreme agitation Last Admin: 04/04/17 16:19 Dose: 1 mg Haloperidol Lactate (Haldol) 1 mg IM Q6H PRN PRN Reason: Extreme agitation Last Admin: 04/04/17 10:06 Dose: 1 mg Levothyroxine Sodium (Synthroid) 75 mcg PO ACB [facility] Last Admin: 04/04/17 08:53 Dose: 75 mcg Loperamide HCl (Imodium) 2 mg PO PRN PRN PRN Reason: Loose stools Lorazepam (Ativan Inj) 0.5 mg IM Q6H PRN PRN Reason: Extreme agitation Last Admin: 04/04/17 10:06 Dose: 0.5 mg Lorazepam (Ativan) 0.5 mg PO Q6H PRN PRN Reason: Extreme agitation Last Admin: 04/04/17 16:19 Dose: 0.5 mg Magnesium Hydroxide (Mom) 30 ml PO PRN PRN PRN Reason: Constipation Nitrofurantoin Macrocrystals (Macrobid) 100 mg PO BIDWM [facility] Stop: 04/07/17 09:00 Last Admin: 04/04/17 17:26 Dose: 100 mg Quetiapine Fumarate (Seroquel Xr) 75 mg PO BID [facility] Last Admin: 04/04/17 08:32 Dose: 75 mg Rivastigmine (Exelon Patch) 13.3 mg TD DAILY [facility] Last Admin: 04/04/17 08:33 Dose: 13.3 mg Rivastigmine (Exelon Patch Removal) 1 removal TD DAILY [facility] Last Admin: 04/04/17 08:34 Dose: 1 removal Trazodone HCl (Desyrel) 50 mg PO HS [facility] Last Admin: 04/03/17 22:48 Dose: Not Given Subjective: Patient seen and chart reviewed. Nursing reports pt has been confused and agitated at times with some aggressive behaviors. Pt received Ativan and Haldol IM at 1005 for agitation. On face to face the pt is pleasant but confused. She is only oriented to self. Denies any pain. Tolerating meds Start Time: 17:45 Stop Time: 18:00 Mental Status Exam Vitals: Last Vital Signs Temp 98.1 F 04/04/17 16:00 Pulse 81 04/04/17 16:00 Resp 16 04/04/17 16:00 BP 107/61 04/04/17 16:00 Pulse Ox 95 04/04/17 16:00 Height: 1.68 m Weight: 52.4 kg - Mental Status Exam Muscle Strength/Tone: Normal Dressing: Casual Grooming: Good Attitude: Guarded Motor Activity: Normal Eye Contact: Good Speech: Slowed Volume: Normal Rhythm: Mumbled, Other (unable to assess due to sedation) Orientation: Disoriented to time, Disoriented to place, Disoriented to situation , Oriented to person Mood: Neutral (labile affect though calm during interview) Rate of Thoughts: Delayed Thought Organization: Confused Associations: Illogical Abstract Reasoning: Poor abstract reasoning Thought Content: Other (wonders where is, no insight into symptoms/ hospitalization) Perception/Psychotic: Perception Normal Language: Naming Impaired Fund of Knowledge: Poor fund of knowledge Memory: Poor-immediate, Poor-recent Suicidal Ideation: Denies Homicidal Ideation: Denies Insight: Impaired Judgement: Impaired Impulse Control: Poor - Laboratory Result Diagrams: 04/01/17 06:57 04/01/17 06:57 Assessment and Plan (1) Dementia with behavioral disturbance Current visit: Yes Status: Acute (2) Suicidal ideation Current visit: Yes Status: Acute (3) Psychosis Qualifiers: Psychosis type: unspecified psychosis type Qualified Code(s): F29 - Unspecified psychosis not due to a substance or known physiological condition Current visit: Yes Status: Acute (4) UTI (urinary tract infection) Current visit: Yes Status: Acute Hospital Course Summary Disclaimer: The visit summary below is not to be considered part of the above Progress Note. Hospital Course: 04/01/17 Impression Dementia with behavior UTI- POA diagnosed on 03/31 while getting clearance at [facility] emergency room. Started on Macrobid Paroxysmal atrial fibrillation Hypertension CKD Congestive heart failure Hyperlipidemia History of TIA Plan Agree with [facility] to [facility] under the care of Dr. Ramirez for further psychiatric evaluation and treatment. We will continue with treatment of acute urinary tract infection on Macrobid twice a day through 04/07/17 Chronic medications reviewed. It does not appear that patient is on chronic anticoagulation for paroxysmal atrial fibrillation. She does take a baby aspirin daily. Admission labs from this morning are reviewed. TSH is slightly elevated at 5.32. Would recommend following this in the outpatient setting, as this can elevate secondary to antipsychotic medications. Encourage patient to participate in unit activities and provide a safe environment. Hospital services will continue to follow patient in medical management. Existing comorbidities during [facility] stay [facility]. At time of discharge medical care is to return back to primary care provider in [place], [place], Dr. iRri Dallas 04/02/17 Psych: Patient improving from admission but continues to have mood lability, SI resolving - continue current care, monitor mood and behavior and discuss with DPOA whether antipsychotic will be beneficial. Calms well with Ativan though can exacerbate confusion, increase fall risk. 04/03/17- Overall doing well. Continues on Macrobid through 04/07 for tx of UTI. Monitor blood pressure. 04/03/17 Psych: Will plan to start Haldol 0.5mg PO BID to target behaviors after obtaining consent from DPOA. 04/04/17 18:10 D/C Seroquel. Haldol 0.5mg PO BID
[2017-04-04] MEDS: TRAZODONE 50 MG TABLET PO SCH (20:40)
[2017-04-04] MEDS: HALOPERIDOL 0.5 MG TABLET PO SCH (20:40)
[2017-04-05] MEDS: LEVOTHYROXINE 75 MCG TABLET PO SCH ×2 (05:17→07:20)
[2017-04-05] MEDS ORDERED: Bisacodyl EC TAB 5 MG TABLET PO PRN (07:54)
[2017-04-05] MEDS: CYANOCOBALAMIN (B-12) 500mcg TABLET PO SCH (07:58)
[2017-04-05] MEDS: ASPIRIN 81 MG CHEWABLE TABLET PO SCH ×2 (07:58→15:16)
[2017-04-05] MEDS: NITROFURANTOIN (MACROBID) 100 MG CAPSULE PO SCH ×3 (07:58→18:35)
[2017-04-05] MEDS: HALOPERIDOL 0.5 MG TABLET PO SCH ×2 (07:59→20:13)
[2017-04-05] MEDS: GABAPENTIN 100 MG CAPSULE PO SCH (07:59)
[2017-04-05] MEDS: HYDROCODONE/APAP 5mg/325mg TABLET PO SCH ×2 (07:59→20:13)
[2017-04-05] MEDS: RIVASTIGMINE PATCH REMOVAL TD SCH (08:00)
[2017-04-05] MEDS: RIVASTIGMINE 13.3 MG/24 HR PATCH TD SCH (08:00)
--- NOTE | 2017-04-05 10:25 | Neuropsych Progress Note ---
[facility] Subjective Date: 04/05/17 - Sujective/Severity of Illness Medications: Hydrocodone Bitart/Acetaminophen ([place] 5/325) 0.5 tab PO BID [facility] Last Admin: 04/05/17 07:59 Dose: 0.5 tab Aspirin (Asa) 81 mg PO DAILY [facility] Last Admin: 04/05/17 07:58 Dose: 81 mg Bisacodyl (Dulcolax) 10 mg PO DAILY PRN PRN Reason: Constipation Last Admin: 04/05/17 08:00 Dose: 10 mg Carbamide Peroxide (Debrox) 5 - 10 drops EACH EAR PRN PRN PRN Reason: wax build up Cyanocobalamin (Vit. B-12) 1,000 mcg PO DAILY [facility] Last Admin: 04/05/17 07:58 Dose: 1,000 mcg Gabapentin (Neurontin) 100 mg PO DAILY [facility] Last Admin: 04/05/17 07:59 Dose: 100 mg Haloperidol (Haldol) 1 mg PO Q6H PRN PRN Reason: Extreme agitation Last Admin: 04/04/17 16:19 Dose: 1 mg Haloperidol (Haldol) 0.5 mg PO BID [facility] Last Admin: 04/05/17 07:59 Dose: 0.5 mg Haloperidol Lactate (Haldol) 1 mg IM Q6H PRN PRN Reason: Extreme agitation Last Admin: 04/04/17 10:06 Dose: 1 mg Levothyroxine Sodium (Synthroid) 75 mcg PO ACB [facility] Last Admin: 04/05/17 07:20 Dose: Not Given Loperamide HCl (Imodium) 2 mg PO PRN PRN PRN Reason: Loose stools Lorazepam (Ativan Inj) 0.5 mg IM Q6H PRN PRN Reason: Extreme agitation Last Admin: 04/05/17 09:36 Dose: 0.5 mg Lorazepam (Ativan) 0.5 mg PO Q6H PRN PRN Reason: Extreme agitation Last Admin: 04/04/17 16:19 Dose: 0.5 mg Magnesium Hydroxide (Mom) 30 ml PO PRN PRN PRN Reason: Constipation Nitrofurantoin Macrocrystals (Macrobid) 100 mg PO BIDWM [facility] Stop: 04/07/17 09:00 Last Admin: 04/05/17 07:58 Dose: 100 mg Rivastigmine (Exelon Patch) 13.3 mg TD DAILY [facility] Last Admin: 04/05/17 08:00 Dose: 13.3 mg Rivastigmine (Exelon Patch Removal) 1 removal TD DAILY [facility] Last Admin: 04/05/17 08:00 Dose: 1 removal Trazodone HCl (Desyrel) 50 mg PO HS [facility] Last Admin: 04/04/17 20:40 Dose: 50 mg Subjective: Patient seen and chart reviewed. Nursing reports pt slept well and has a good appetite. Became angry and cursing this AM and was given Ativan PRN which was helpful. On face to face the pt is seen in her bed. She is pleasant but confused. She is only oriented to self. Denies pain and voices no concerns at this time Start Time: 09:30 Stop Time: 09:45 Mental Status Exam Vitals: Last Vital Signs Temp 97.9 F 04/05/17 08:00 Pulse 82 04/05/17 08:00 Resp 18 04/05/17 08:00 BP 155/86 H 04/05/17 08:00 Pulse Ox 97 04/05/17 08:00 Height: 1.68 m Weight: 52.4 kg - Mental Status Exam Muscle Strength/Tone: Normal Dressing: Casual Grooming: Good Attitude: Guarded Motor Activity: Normal Eye Contact: Good Speech: Slowed Volume: Normal Rhythm: Mumbled, Other (unable to assess due to sedation) Orientation: Disoriented to time, Disoriented to place, Disoriented to situation , Oriented to person Mood: Neutral (labile affect though calm during interview) Rate of Thoughts: Delayed Thought Organization: Confused Associations: Illogical Abstract Reasoning: Poor abstract reasoning Thought Content: Other (wonders where is, no insight into symptoms/ hospitalization) Perception/Psychotic: Perception Normal Language: Naming Impaired Fund of Knowledge: Poor fund of knowledge Memory: Poor-immediate, Poor-recent Suicidal Ideation: Denies Homicidal Ideation: Denies Insight: Impaired Judgement: Impaired Impulse Control: Poor - Laboratory Result Diagrams: 04/01/17 06:57 04/01/17 06:57 Assessment and Plan (1) Dementia with behavioral disturbance Current visit: Yes Status: Acute (2) Suicidal ideation Current visit: Yes Status: Acute (3) Psychosis Qualifiers: Psychosis type: unspecified psychosis type Qualified Code(s): F29 - Unspecified psychosis not due to a substance or known physiological condition Current visit: Yes Status: Acute (4) UTI (urinary tract infection) Current visit: Yes Status: Acute Hospital Course Summary Disclaimer: The visit summary below is not to be considered part of the above Progress Note. Hospital Course: 04/01/17 Impression Dementia with behavior UTI- POA diagnosed on 03/31 while getting clearance at [place] emergency room. Started on Macrobid Paroxysmal atrial fibrillation Hypertension CKD Congestive heart failure Hyperlipidemia History of TIA Plan Agree with admission to the [facility] under the care of Dr. Ramirez for further psychiatric evaluation and treatment. We will continue with treatment of acute urinary tract infection on Macrobid twice a day through 04/07/17 Chronic medications reviewed. It does not appear that patient is on chronic anticoagulation for paroxysmal atrial fibrillation. She does take a baby aspirin daily. Admission labs from this morning are reviewed. TSH is slightly elevated at 5.32. Would recommend following this in the outpatient setting, as this can elevate secondary to antipsychotic medications. Encourage patient to participate in unit activities and provide a safe environment. Hospital services will continue to follow patient in medical management. Existing comorbidities during his stay on the [facility]. At time of discharge medical care is to return back to primary care provider in [place], [place], Dr. Riri Dallas 04/02/17 Psych: Patient improving from admission but continues to have mood lability, SI resolving - continue current care, monitor mood and behavior and discuss with DPOA whether antipsychotic will be beneficial. Calms well with Ativan though can exacerbate confusion, increase fall risk. 04/03/17- Overall doing well. Continues on Macrobid through 04/07 for tx of UTI. Monitor blood pressure. 04/03/17 Psych: Will plan to start Haldol 0.5mg PO BID to target behaviors after obtaining consent from DPOA. 04/04/17 18:10 D/C Seroquel. Haldol 0.5mg PO BID 04/05/17 10:25 Some agitation at times. Continue Haldol
--- NOTE | 2017-04-05 14:54 | Progress Note ---
- Date 04/05/17 Subjective: Annie Dotson is seen in follow up. She is resting quietly- likely sedated as she required PRN meds early for agitation and cursing at staff. Still struggling with agitation and verbal outbursts. Objective Vital signs: Temperature 97.9 F 04/05/17 08:00 Pulse Rate 82 04/05/17 08:00 Respiratory Rate 18 04/05/17 08:00 Blood Pressure 155/86 H 04/05/17 08:00 Pulse Oximetry 97 04/05/17 08:00 Height/Weight/BMI: Height 1.68 m Weight 52.4 kg Body Mass Index 18.6 - Constitutional Present: no acute distress, other (sedate, sleeping) - Routine HEENT Exam Head: Present: normocephalic, atraumatic - Routine Respiratory Exam Present: CTA bilaterally. Absent: rales, rhonchi, wheezes, crackles - Routine Cardiovascular Exam Present: RRR, S1, S2, no murmur - Routine Abdominal Exam Present: soft, normoactive bowel sounds, non distended, non tender - Routine Extremities Exam Present: no edema - Routine Musculoskeletal Exam Musculoskeletal: Present: no clubbing or cyanosis - Routine Skin Exam Present: intact, dry, warm - Routine Psychiatric Exam Present: unable to assess Results - Labs CBC & Chem 7: 04/01/17 06:57 04/01/17 06:57 Assessment and Plan (1) Dementia with behavioral disturbance Current visit: Yes Status: Acute Assessment and Plan: Impression Dementia with behavior UTI- POA diagnosed on 03/31 while getting clearance at [place] emergency room. Started on Macrobid Paroxysmal atrial fibrillation Hypertension CKD Congestive heart failure Hyperlipidemia History of TIA Plan 04/05/17 Continues on Macrobid for treatment of UTI. Course complete on 04/07. Continue current medications for BP, Atrial Fib. No anticoagulation given fall risk. Behaviors remain an issue- psych adjusting meds. Labs ordered for Friday to assess stability. Need to recheck TSH when stable outpatient. Monitor for pain with medication adjustments of [place]. Continue Gabapentin. Resuscitation Status: Do Not Resuscitate Hospital Course Summary Disclaimer: The visit summary below is not to be considered part of the above Progress Note. Hospital Course: 04/01/17 Impression Dementia with behavior UTI- POA diagnosed on 03/31 while getting clearance at [place] emergency room. Started on Macrobid Paroxysmal atrial fibrillation Hypertension CKD Congestive heart failure Hyperlipidemia History of TIA Plan Agree with admission to the [facility] under the care of Dr. Ramirez for further psychiatric evaluation and treatment. We will continue with treatment of acute urinary tract infection on Macrobid twice a day through 04/07/17 Chronic medications reviewed. It does not appear that patient is on chronic anticoagulation for paroxysmal atrial fibrillation. She does take a baby aspirin daily. Admission labs from this morning are reviewed. TSH is slightly elevated at 5.32. Would recommend following this in the outpatient setting, as this can elevate secondary to antipsychotic medications. Encourage patient to participate in unit activities and provide a safe environment. Hospital services will continue to follow patient in medical management. Existing comorbidities during his stay on [facility]. At time of discharge medical care is to return back to primary care provider in [place], [place], Dr. Riri Dallas 04/02/17 Psych: Patient improving from admission but continues to have mood lability, SI resolving - continue current care, monitor mood and behavior and discuss with DPOA whether antipsychotic will be beneficial. Calms well with Ativan though can exacerbate confusion, increase fall risk. 04/03/17- Overall doing well. Continues on Macrobid through 04/07 for tx of UTI. Monitor blood pressure. 04/03/17 Psych: Will plan to start Haldol 0.5mg PO BID to target behaviors after obtaining consent from DPOA. 04/04/17 18:10 D/C Seroquel. Haldol 0.5mg PO BID 04/05/17 10:25 Some agitation at times. Continue Haldol 04/05/17 14:55 04/05/17 Continues on Macrobid for treatment of UTI. Course complete on 04/07. Continue current medications for BP, Atrial Fib. No anticoagulation given fall risk. Behaviors remain an issue- psych adjusting meds. Labs ordered for Friday to assess stability. Need to recheck TSH when stable outpatient. Monitor for pain with medication adjustments of [place]. Continue Gabapentin.
[2017-04-05] MEDS: LORazepam 0.5 MG TABLET PO PRN (15:53)
[2017-04-05] MEDS ORDERED: HALOPERIDOL 5 MG/ML INJECTION IM ONE (17:12)
[2017-04-05] MEDS: TRAZODONE 50 MG TABLET PO SCH (20:14)
[2017-04-06] MEDS: LORazepam 0.5 MG TABLET PO PRN (08:27)
[2017-04-06] MEDS: LEVOTHYROXINE 75 MCG TABLET PO SCH (08:27)
[2017-04-06] MEDS: NITROFURANTOIN (MACROBID) 100 MG CAPSULE PO SCH ×2 (09:10→17:36)
[2017-04-06] MEDS: ASPIRIN 81 MG CHEWABLE TABLET PO SCH (09:10)
[2017-04-06] MEDS: HALOPERIDOL 0.5 MG TABLET PO SCH (09:11)
[2017-04-06] MEDS: GABAPENTIN 100 MG CAPSULE PO SCH (09:11)
[2017-04-06] MEDS: HYDROCODONE/APAP 5mg/325mg TABLET PO SCH ×2 (09:11→20:13)
[2017-04-06] MEDS: CYANOCOBALAMIN (B-12) 500mcg TABLET PO SCH (09:11)
[2017-04-06] MEDS: RIVASTIGMINE 13.3 MG/24 HR PATCH TD SCH (09:12)
[2017-04-06] MEDS: RIVASTIGMINE PATCH REMOVAL TD SCH (09:18)
[2017-04-06] MEDS ORDERED: HALOPERIDOL 5 MG/ML INJECTION IM ONE (10:41)
--- NOTE | 2017-04-06 11:10 | Neuropsych Progress Note ---
[facility] Subjective Date: 04/06/17 - Sujective/Severity of Illness Medications: Hydrocodone Bitart/Acetaminophen ([place] 5/325) 0.5 tab PO BID [facility] Last Admin: 04/06/17 09:11 Dose: 0.5 tab Aspirin (Asa) 81 mg PO DAILY [facility] Last Admin: 04/06/17 09:10 Dose: 81 mg Bisacodyl (Dulcolax) 10 mg PO DAILY PRN PRN Reason: Constipation Last Admin: 04/05/17 08:00 Dose: 10 mg Carbamide Peroxide (Debrox) 5 - 10 drops EACH EAR PRN PRN PRN Reason: wax build up Cyanocobalamin (Vit. B-12) 1,000 mcg PO DAILY [facility] Last Admin: 04/06/17 09:11 Dose: 1,000 mcg Gabapentin (Neurontin) 100 mg PO DAILY [facility] Last Admin: 04/06/17 09:11 Dose: 100 mg Haloperidol (Haldol) 1 mg PO Q6H PRN PRN Reason: Extreme agitation Last Admin: 04/04/17 16:19 Dose: 1 mg Haloperidol (Haldol) 0.5 mg PO BID [facility] Last Admin: 04/06/17 09:11 Dose: 0.5 mg Haloperidol Lactate (Haldol) 1 mg IM Q6H PRN PRN Reason: Extreme agitation Last Admin: 04/04/17 10:06 Dose: 1 mg Levothyroxine Sodium (Synthroid) 75 mcg PO ACB [facility] Last Admin: 04/06/17 08:27 Dose: 75 mcg Loperamide HCl (Imodium) 2 mg PO PRN PRN PRN Reason: Loose stools Lorazepam (Ativan Inj) 0.5 mg IM Q6H PRN PRN Reason: Extreme agitation Last Admin: 04/05/17 09:36 Dose: 0.5 mg Lorazepam (Ativan) 0.5 mg PO Q6H PRN PRN Reason: Extreme agitation Last Admin: 04/06/17 08:27 Dose: 0.5 mg Magnesium Hydroxide (Mom) 30 ml PO PRN PRN PRN Reason: Constipation Nitrofurantoin Macrocrystals (Macrobid) 100 mg PO BIDWM [facility] Stop: 04/07/17 09:00 Last Admin: 04/06/17 09:10 Dose: 100 mg Rivastigmine (Exelon Patch) 13.3 mg TD DAILY [facility] Last Admin: 04/06/17 09:12 Dose: 13.3 mg Rivastigmine (Exelon Patch Removal) 1 removal TD DAILY [facility] Last Admin: 04/06/17 09:18 Dose: 1 removal Trazodone HCl (Desyrel) 50 mg PO HS [facility] Last Admin: 04/05/17 20:14 Dose: 50 mg Subjective: Patient seen and chart reviewed. Nursing reports pt slept well. She remains irritable and cursing at times but no aggression noted. Pt received PRN Haldol and Ativan this AM. On face to face the pt is pleasant but confused. She is only oriented to self. She denies any pain. Tolerating meds Start Time: 11:00 Stop Time: 11:15 Mental Status Exam Vitals: Last Vital Signs Temp 97.8 F 04/06/17 08:00 Pulse 75 04/06/17 08:00 Resp 20 04/06/17 08:00 BP 168/85 H 04/06/17 08:00 Pulse Ox 94 04/06/17 08:00 Height: 1.68 m Weight: 52.4 kg - Mental Status Exam Muscle Strength/Tone: Normal Dressing: Casual Grooming: Good Attitude: Guarded Motor Activity: Normal Eye Contact: Good Speech: Slowed Volume: Normal Rhythm: Mumbled, Other (unable to assess due to sedation) Orientation: Disoriented to time, Disoriented to place, Disoriented to situation , Oriented to person Mood: Neutral (labile affect though calm during interview) Rate of Thoughts: Delayed Thought Organization: Confused Associations: Illogical Abstract Reasoning: Poor abstract reasoning Thought Content: Other (wonders where is, no insight into symptoms/ hospitalization) Perception/Psychotic: Perception Normal Language: Naming Impaired Fund of Knowledge: Poor fund of knowledge Memory: Poor-immediate, Poor-recent Suicidal Ideation: Denies Homicidal Ideation: Denies Insight: Impaired Judgement: Impaired Impulse Control: Poor - Laboratory Result Diagrams: 04/01/17 06:57 04/01/17 06:57 Assessment and Plan (1) Dementia with behavioral disturbance Current visit: Yes Status: Acute (2) Suicidal ideation Current visit: Yes Status: Acute (3) Psychosis Qualifiers: Psychosis type: unspecified psychosis type Qualified Code(s): F29 - Unspecified psychosis not due to a substance or known physiological condition Current visit: Yes Status: Acute (4) UTI (urinary tract infection) Current visit: Yes Status: Acute Hospital Course Summary Disclaimer: The visit summary below is not to be considered part of the above Progress Note. Hospital Course: 04/01/17 Impression Dementia with behavior UTI- POA diagnosed on 03/31 while getting clearance at [place] emergency room. Started on Macrobid Paroxysmal atrial fibrillation Hypertension CKD Congestive heart failure Hyperlipidemia History of TIA Plan Agree with admission to the [facility] under the care of Dr. Ramirez for further psychiatric evaluation and treatment. We will continue with treatment of acute urinary tract infection on Macrobid twice a day through 04/07/17 Chronic medications reviewed. It does not appear that patient is on chronic anticoagulation for paroxysmal atrial fibrillation. She does take a baby aspirin daily. Admission labs from this morning are reviewed. TSH is slightly elevated at 5.32. Would recommend following this in the outpatient setting, as this can elevate secondary to antipsychotic medications. Encourage patient to participate in unit activities and provide a safe environment. Hospital services will continue to follow patient in medical management. Existing comorbidities during his stay on [facility]. At time of discharge medical care is to return back to primary care provider in [place], [place], Dr. Riri Dallas 04/02/17 Psych: Patient improving from admission but continues to have mood lability, SI resolving - continue current care, monitor mood and behavior and discuss with DPOA whether antipsychotic will be beneficial. Calms well with Ativan though can exacerbate confusion, increase fall risk. 04/03/17- Overall doing well. Continues on Macrobid through 04/07 for tx of UTI. Monitor blood pressure. 04/03/17 Psych: Will plan to start Haldol 0.5mg PO BID to target behaviors after obtaining consent from DPOA. 04/04/17 18:10 D/C Seroquel. Haldol 0.5mg PO BID 04/05/17 10:25 Some agitation at times. Continue Haldol 04/05/17 14:55 04/05/17 Continues on Macrobid for treatment of UTI. Course complete on 04/07. Continue current medications for BP, Atrial Fib. No anticoagulation given fall risk. Behaviors remain an issue- psych adjusting meds. Labs ordered for Friday to assess stability. Need to recheck TSH when stable outpatient. Monitor for pain with medication adjustments of [place]. Continue Gabapentin. 04/06/17 11:09 Increase Haldol to 1mg PO BID
[2017-04-06] MEDS: HALOPERIDOL 1 MG TABLET PO SCH (20:13)
[2017-04-06] MEDS: TRAZODONE 50 MG TABLET PO SCH (20:13)
[2017-04-07] MEDS: LEVOTHYROXINE 75 MCG TABLET PO SCH (06:00)
[2017-04-07] MEDS: NITROFURANTOIN (MACROBID) 100 MG CAPSULE PO SCH (08:02)
[2017-04-07] MEDS: ASPIRIN 81 MG CHEWABLE TABLET PO SCH (08:03)
[2017-04-07] MEDS: CYANOCOBALAMIN (B-12) 500mcg TABLET PO SCH (08:03)
[2017-04-07] MEDS: GABAPENTIN 100 MG CAPSULE PO SCH (08:03)
[2017-04-07] MEDS: HYDROCODONE/APAP 5mg/325mg TABLET PO SCH ×2 (08:03→21:21)
[2017-04-07] MEDS: HALOPERIDOL 1 MG TABLET PO SCH ×2 (08:03→21:23)
[2017-04-07] MEDS: RIVASTIGMINE 13.3 MG/24 HR PATCH TD SCH (08:04)
[2017-04-07] MEDS: RIVASTIGMINE PATCH REMOVAL TD SCH (08:10)
[2017-04-07] MEDS: LORazepam 0.5 MG TABLET PO PRN (13:43)
--- NOTE | 2017-04-07 14:00 | Neuropsych Progress Note ---
[facility] Subjective Date: 04/07/17 - Sujective/Severity of Illness Medications: Hydrocodone Bitart/Acetaminophen ([place] 5/325) 0.5 tab PO BID [facility] Last Admin: 04/07/17 08:03 Dose: 0.5 tab Aspirin (Asa) 81 mg PO DAILY [facility] Last Admin: 04/07/17 08:03 Dose: 81 mg Bisacodyl (Dulcolax) 10 mg PO DAILY PRN PRN Reason: Constipation Last Admin: 04/05/17 08:00 Dose: 10 mg Carbamide Peroxide (Debrox) 5 - 10 drops EACH EAR PRN PRN PRN Reason: wax build up Cyanocobalamin (Vit. B-12) 1,000 mcg PO DAILY [facility] Last Admin: 04/07/17 08:03 Dose: 1,000 mcg Gabapentin (Neurontin) 100 mg PO DAILY [facility] Last Admin: 04/07/17 08:03 Dose: 100 mg Haloperidol (Haldol) 1 mg PO Q6H PRN PRN Reason: Extreme agitation Last Admin: 04/04/17 16:19 Dose: 1 mg Haloperidol (Haldol) 1 mg PO BID [facility] Last Admin: 04/07/17 08:03 Dose: 1 mg Haloperidol Lactate (Haldol) 1 mg IM Q6H PRN PRN Reason: Extreme agitation Last Admin: 04/04/17 10:06 Dose: 1 mg Levothyroxine Sodium (Synthroid) 75 mcg PO ACB [facility] Last Admin: 04/07/17 06:00 Dose: 75 mcg Lidocaine (Lidoderm) 1 patch TOP DAILY [facility] Lidocaine HCl/Dextrose (Lidoderm Patch Removal) 1 removal TOP O [facility] Loperamide HCl (Imodium) 2 mg PO PRN PRN PRN Reason: Loose stools Lorazepam (Ativan Inj) 0.5 mg IM Q6H PRN PRN Reason: Extreme agitation Last Admin: 04/05/17 09:36 Dose: 0.5 mg Lorazepam (Ativan) 0.5 mg PO Q6H PRN PRN Reason: Extreme agitation Last Admin: 04/07/17 13:43 Dose: 0.5 mg Magnesium Hydroxide (Mom) 30 ml PO PRN PRN PRN Reason: Constipation Rivastigmine (Exelon Patch) 13.3 mg TD DAILY [facility] Last Admin: 04/07/17 08:04 Dose: 13.3 mg Rivastigmine (Exelon Patch Removal) 1 removal TD DAILY [facility] Last Admin: 04/07/17 08:10 Dose: 1 removal Trazodone HCl (Desyrel) 50 mg PO HS [facility] Last Admin: 04/06/17 20:13 Dose: 50 mg Subjective: Patient seen and chart reviewed. Case discussed with treatment team. On interview, patient is cooperative but reports her mood is "just about average " but denies feeling down/depressed. Patient denies any SI, HI or AVH. Patient denies any adverse side effects related to psychotropic medications. Nursing staff report patient can become upset and physically aggressive without identifiable trigger but reported being in pain today. Patient slept 10 hours overnight. BP intermittently elevated; otherwise WNL - due to pain? Patient is eating well. Psychotropic PRNs required in the past 24 hours: Ativan and Haldol yesterday afternoon. Start Time: 10:50 Stop Time: 11:10 Mental Status Exam Vitals: Last Vital Signs Temp 97.2 F 04/07/17 08:00 Pulse 102 H 04/07/17 08:59 Resp 18 04/07/17 08:00 BP 151/82 H 04/07/17 08:59 Pulse Ox 98 04/07/17 08:00 Height: 1.68 m Weight: 52.4 kg - Mental Status Exam Muscle Strength/Tone: Normal Dressing: Casual Grooming: Good Attitude: Guarded Motor Activity: Normal Eye Contact: Good Speech: Slowed Volume: Normal Rhythm: Mumbled, Other (unable to assess due to sedation) Orientation: Disoriented to time, Disoriented to place, Disoriented to situation , Oriented to person Mood: Neutral (labile affect though calm during interview) Rate of Thoughts: Delayed Thought Organization: Confused Associations: Illogical Abstract Reasoning: Poor abstract reasoning Thought Content: Somatic Concerns Perception/Psychotic: Perception Normal Language: Naming Impaired Fund of Knowledge: Poor fund of knowledge Memory: Poor-immediate, Poor-recent Suicidal Ideation: Denies Homicidal Ideation: Denies Insight: Impaired Judgement: Impaired Impulse Control: Poor - Laboratory Result Diagrams: 04/07/17 06:35 04/07/17 06:35 Laboratory Results - last 24 hr 04/07/17 04/07/17 06:35 06:35 WBC 4.4 L RBC 4.45 Hgb 13.0 Hct 40.3 MCV 90.6 MCH 29.2 MCHC 32.3 RDW Std Deviation 50.2 Plt Count 161 MPV 9.6 Immature Gran % (Auto) 0.2 Neut % (Auto) 53.4 Lymph % (Auto) 32.7 [place] % (Auto) 9.8 H Eos % (Auto) 3.0 Baso % (Auto) 0.9 Neut # (Auto) 2.3 Lymph # (Auto) 1.4 [place] # (Auto) 0.4 Eos # (Auto) 0.1 Baso # (Auto) 0.0 Abs Immat Gran (auto) 0.01 Turbidity < 20 Sodium 140 Potassium 3.7 Chloride 104 Carbon Dioxide 29 Anion Gap 7 BUN 21.0 H Creatinine 0.8 GFR Calculation 68 BUN/Creatinine Ratio 26 Glucose 80 Calculated Osmolality 271 Calcium 9.3 Icterus Index < 2 Specimen Hemolysis < 15 Assessment and Plan (1) Suicidal ideation Current visit: Yes Status: Resolved (2) Psychosis Qualifiers: Psychosis type: unspecified psychosis type Qualified Code(s): F29 - Unspecified psychosis not due to a substance or known physiological condition Current visit: Yes Status: Acute (3) Dementia with behavioral disturbance Current visit: Yes Status: Acute (4) UTI (urinary tract infection) Current visit: Yes Status: Acute (5) Paroxysmal A-fib Current visit: Yes Status: Acute (6) Chronic kidney disease Current visit: Yes Status: Acute (7) Congestive heart disease Current visit: Yes Status: Acute (8) Hyperlipidemia Current visit: Yes Status: Acute (9) History of TIA (transient ischemic attack) Current visit: Yes Status: Acute Hospital Course Summary Disclaimer: The visit summary below is not to be considered part of the above Progress Note. Hospital Course: 04/01/17 Impression Dementia with behavior UTI- POA diagnosed on 03/31 while getting clearance at [place] emergency room. Started on Macrobid Paroxysmal atrial fibrillation Hypertension CKD Congestive heart failure Hyperlipidemia History of TIA Plan Agree with admission to the [facility] under the care of Dr. Ramirez for further psychiatric evaluation and treatment. We will continue with treatment of acute urinary tract infection on Macrobid twice a day through 04/07/17 Chronic medications reviewed. It does not appear that patient is on chronic anticoagulation for paroxysmal atrial fibrillation. She does take a baby aspirin daily. Admission labs from this morning are reviewed. TSH is slightly elevated at 5.32. Would recommend following this in the outpatient setting, as this can elevate secondary to antipsychotic medications. Encourage patient to participate in unit activities and provide a safe environment. Hospital services will continue to follow patient in medical management. Existing comorbidities during his stay on the [facility]. At time of discharge medical care is to return back to primary care provider in [place], [place], Dr. Riri Dallas 04/02/17 Psych: Patient improving from admission but continues to have mood lability, SI resolving - continue current care, monitor mood and behavior and discuss with DPOA whether antipsychotic will be beneficial. Calms well with Ativan though can exacerbate confusion, increase fall risk. 04/03/17- Overall doing well. Continues on Macrobid through 04/07 for tx of UTI. Monitor blood pressure. 04/03/17 Psych: Will plan to start Haldol 0.5mg PO BID to target behaviors after obtaining consent from DPOA. 04/04/17 18:10 D/C Seroquel. Haldol 0.5mg PO BID 04/05/17 10:25 Some agitation at times. Continue Haldol 04/05/17 14:55 04/05/17 Continues on Macrobid for treatment of UTI. Course complete on 04/07. Continue current medications for BP, Atrial Fib. No anticoagulation given fall risk. Behaviors remain an issue- psych adjusting meds. Labs ordered for Friday to assess stability. Need to recheck TSH when stable outpatient. Monitor for pain with medication adjustments of [place]. Continue Gabapentin. 04/06/17 11:09 Increase Haldol to 1mg PO BID 04/07/17 Psych: Has not required any PRNs this morning - continue to monitor response since increasing Haldol yesterday. Ordered Lidoderm patch to target pain.
[2017-04-07] MEDS: LIDOCAINE 5% PATCH TOP SCH (14:31)
[2017-04-07] MEDS: HALOPERIDOL 0.5 MG TABLET PO PRN (16:00)
[2017-04-07] MEDS: HYDROCODONE/APAP 5mg/325mg TABLET PO PRN (17:14)
[2017-04-07] MEDS: TRAZODONE 50 MG TABLET PO SCH (21:21)
[2017-04-07] MEDS: LIDOCAINE PATCH REMOVAL TOP SCH (21:45)
[2017-04-08] MEDS: LEVOTHYROXINE 75 MCG TABLET PO SCH (05:57)
[2017-04-08] MEDS: GABAPENTIN 100 MG CAPSULE PO SCH ×2 (09:02→09:29)
[2017-04-08] MEDS: ASPIRIN 81 MG CHEWABLE TABLET PO SCH ×2 (09:02→09:29)
[2017-04-08] MEDS: RIVASTIGMINE PATCH REMOVAL TD SCH (09:03)
[2017-04-08] MEDS: RIVASTIGMINE 13.3 MG/24 HR PATCH TD SCH (09:03)
[2017-04-08] MEDS: HALOPERIDOL 1 MG TABLET PO SCH ×2 (09:03→09:29)
[2017-04-08] MEDS: HYDROCODONE/APAP 5mg/325mg TABLET PO SCH ×3 (09:03→21:00)
[2017-04-08] MEDS: LIDOCAINE 5% PATCH TOP SCH (09:07)
[2017-04-08] MEDS: HALOPERIDOL 5 MG/ML INJECTION IM PRN (09:20)
--- NOTE | 2017-04-08 12:33 | Neuropsych Progress Note ---
[facility] Subjective Date: 04/08/17 - Sujective/Severity of Illness Medications: Hydrocodone Bitart/Acetaminophen ([place] 5/325) 0.5 tab PO BID [facility] Last Admin: 04/08/17 09:29 Dose: Not Given Hydrocodone Bitart/Acetaminophen ([place] 5/325) 0.5 tab PO Q8H PRN PRN Reason: Pain Last Admin: 04/07/17 17:14 Dose: 0.5 tab Aspirin (Asa) 81 mg PO DAILY [facility] Last Admin: 04/08/17 09:29 Dose: Not Given Bisacodyl (Dulcolax) 10 mg PO DAILY PRN PRN Reason: Constipation Last Admin: 04/05/17 08:00 Dose: 10 mg Carbamide Peroxide (Debrox) 5 - 10 drops EACH EAR PRN PRN PRN Reason: wax build up Cyanocobalamin (Vit. B-12) 1,000 mcg PO DAILY [facility] Last Admin: 04/07/17 08:03 Dose: 1,000 mcg Gabapentin (Neurontin) 100 mg PO DAILY [facility] Last Admin: 04/08/17 09:29 Dose: Not Given Haloperidol (Haldol) 1 mg PO Q6H PRN PRN Reason: Extreme agitation Last Admin: 04/07/17 16:00 Dose: 1 mg Haloperidol (Haldol) 1 mg PO BID [facility] Last Admin: 04/08/17 09:29 Dose: Not Given Haloperidol Lactate (Haldol) 1 mg IM Q6H PRN PRN Reason: Extreme agitation Last Admin: 04/08/17 09:20 Dose: 1 mg Levothyroxine Sodium (Synthroid) 75 mcg PO ACB [facility] Last Admin: 04/08/17 05:57 Dose: 75 mcg Lidocaine (Lidoderm) 1 patch TOP DAILY [facility] Last Admin: 04/08/17 09:07 Dose: 1 patch Lidocaine HCl/Dextrose (Lidoderm Patch Removal) 1 removal TOP 2100 [facility] Last Admin: 04/07/17 21:45 Dose: 1 removal Loperamide HCl (Imodium) 2 mg PO PRN PRN PRN Reason: Loose stools Lorazepam (Ativan Inj) 0.5 mg IM Q6H PRN PRN Reason: Extreme agitation Last Admin: 04/08/17 10:20 Dose: 0.5 mg Lorazepam (Ativan) 0.5 mg PO Q6H PRN PRN Reason: Extreme agitation Last Admin: 04/06/17 08:27 Dose: 0.5 mg Magnesium Hydroxide (Mom) 30 ml PO PRN PRN PRN Reason: Constipation Rivastigmine (Exelon Patch) 13.3 mg TD DAILY [facility] Last Admin: 04/08/17 09:03 Dose: 13.3 mg Rivastigmine (Exelon Patch Removal) 1 removal TD DAILY [facility] Last Admin: 04/08/17 09:03 Dose: 1 removal Trazodone HCl (Desyrel) 50 mg PO HS [facility] Last Admin: 04/07/17 21:21 Dose: 50 mg Subjective: Patient seen and chart reviewed. Case discussed with treatment team. On interview, patient is lying in bed after an episode of agitation/aggression with nursing staff that led to PRN medication being administered after she refused her AM Haldol. Patient continues to be distressed and yelling out ' Someone help me' repeatedly but is given space and a nonstimulating environment to help cause. Nursing staff report patient can become upset and physically aggressive without identifiable trigger but reported being in pain yesterday. Patient slept 8.75 hours overnight. BP intermittently elevated; otherwise WNL - due to pain? Patient is eating well. Psychotropic PRNs required in the past 24 hours: Ativan 0.5mg IM at 1430, Haldol 1mg PO at 1600. Patient now has Lidoderm patch, [place] 2.5mg BID and PRN q 4hrs PRN pain. Start Time: 09:40 Stop Time: 10:00 Mental Status Exam Vitals: Last Vital Signs Temp 98.1 F 04/08/17 08:00 Pulse 92 04/08/17 08:00 Resp 16 04/08/17 08:00 BP 161/82 H 04/08/17 08:00 Pulse Ox 96 04/08/17 08:00 Height: 1.68 m Weight: 54.1 kg - Mental Status Exam Muscle Strength/Tone: Normal Dressing: Casual Grooming: Good Attitude: Uncooperative Motor Activity: Restless Eye Contact: Good Speech: Slowed Volume: Normal Rhythm: Mumbled, Other (unable to assess due to sedation) Orientation: Disoriented to time, Disoriented to place, Disoriented to situation , Oriented to person Mood: Anxious (labile affect) Rate of Thoughts: Delayed Thought Organization: Confused Associations: Illogical Abstract Reasoning: Poor abstract reasoning Thought Content: Paranoia, Somatic Concerns Perception/Psychotic: Perception Normal Language: Naming Impaired Fund of Knowledge: Poor fund of knowledge Memory: Poor-immediate, Poor-recent Suicidal Ideation: Denies Homicidal Ideation: Denies Insight: Impaired Judgement: Impaired Impulse Control: Poor - Laboratory Result Diagrams: 04/07/17 06:35 04/07/17 06:35 Assessment and Plan (1) Suicidal ideation Current visit: Yes Status: Resolved (2) Psychosis Qualifiers: Psychosis type: unspecified psychosis type Qualified Code(s): F29 - Unspecified psychosis not due to a substance or known physiological condition Current visit: Yes Status: Acute (3) Dementia with behavioral disturbance Current visit: Yes Status: Acute (4) UTI (urinary tract infection) Current visit: Yes Status: Acute (5) Paroxysmal A-fib Current visit: Yes Status: Acute (6) Chronic kidney disease Current visit: Yes Status: Acute (7) Congestive heart disease Current visit: Yes Status: Acute (8) Hyperlipidemia Current visit: Yes Status: Acute (9) History of TIA (transient ischemic attack) Current visit: Yes Status: Acute Hospital Course Summary Disclaimer: The visit summary below is not to be considered part of the above Progress Note. Hospital Course: 04/01/17 Impression Dementia with behavior UTI- POA diagnosed on 03/31 while getting clearance at [place] emergency room. Started on Macrobid Paroxysmal atrial fibrillation Hypertension CKD Congestive heart failure Hyperlipidemia History of TIA Plan Agree with admission to [facility] under the care of Dr. Ramirez for further psychiatric evaluation and treatment. We will continue with treatment of acute urinary tract infection on Macrobid twice a day through 04/07/17 Chronic medications reviewed. It does not appear that patient is on chronic anticoagulation for paroxysmal atrial fibrillation. She does take a baby aspirin daily. Admission labs from this morning are reviewed. TSH is slightly elevated at 5.32. Would recommend following this in the outpatient setting, as this can elevate secondary to antipsychotic medications. Encourage patient to participate in unit activities and provide a safe environment. Hospital services will continue to follow patient in medical management. Existing comorbidities during his stay on the [facility]. At time of discharge medical care is to return back to primary care provider in [place], [place], Dr. Riri Dallas 04/02/17 Psych: Patient improving from admission but continues to have mood lability, SI resolving - continue current care, monitor mood and behavior and discuss with DPOA whether antipsychotic will be beneficial. Calms well with Ativan though can exacerbate confusion, increase fall risk. 04/03/17- Overall doing well. Continues on Macrobid through 04/07 for tx of UTI. Monitor blood pressure. 04/03/17 Psych: Will plan to start Haldol 0.5mg PO BID to target behaviors after obtaining consent from DPOA. 04/04/17 18:10 D/C Seroquel. Haldol 0.5mg PO BID 04/05/17 10:25 Some agitation at times. Continue Haldol 04/05/17 14:55 04/05/17 Continues on Macrobid for treatment of UTI. Course complete on 04/07. Continue current medications for BP, Atrial Fib. No anticoagulation given fall risk. Behaviors remain an issue- psych adjusting meds. Labs ordered for Friday to assess stability. Need to recheck TSH when stable outpatient. Monitor for pain with medication adjustments of [place]. Continue Gabapentin. 04/06/17 11:09 Increase Haldol to 1mg PO BID 04/07/17 Psych: Has not required any PRNs this morning - continue to monitor response since increasing Haldol yesterday. Ordered Lidoderm patch to target pain. 04/08/17 Psych: Will continue Haldol 1mg PO q AM and split later dose to 0.5mg at 1300 and 0.5mg at HS; monitor response. Will also attempt to alleviate pain that may be contributing to agitation while minimizing narcotic use.
[2017-04-08] MEDS: HALOPERIDOL 0.5 MG TABLET PO SCH ×2 (13:38→20:59)
--- NOTE | 2017-04-08 16:26 | Progress Note ---
Progress Note: Labs and chart reviewed. Pt's B12 is high at >1000. Hold her B12. Would recommend holding for several weeks then f-u with a repeat level on an OP basis.
[2017-04-08] MEDS: TRAZODONE 50 MG TABLET PO SCH (20:59)
[2017-04-08] MEDS: LIDOCAINE PATCH REMOVAL TOP SCH (21:01)
[2017-04-09] MEDS: LEVOTHYROXINE 75 MCG TABLET PO SCH (05:59)
[2017-04-09] MEDS: HALOPERIDOL 1 MG TABLET PO SCH (05:59)
[2017-04-09] MEDS: HYDROCODONE/APAP 5mg/325mg TABLET PO PRN ×2 (06:05→17:01)
[2017-04-09] MEDS: GABAPENTIN 100 MG CAPSULE PO SCH (08:37)
[2017-04-09] MEDS: ASPIRIN 81 MG CHEWABLE TABLET PO SCH (08:37)
[2017-04-09] MEDS ORDERED: HALOPERIDOL 1 MG TABLET PO SCH (09:00)
[2017-04-09] MEDS: RIVASTIGMINE 13.3 MG/24 HR PATCH TD SCH (09:36)
[2017-04-09] MEDS: LIDOCAINE 5% PATCH TOP SCH (09:37)
[2017-04-09] MEDS: RIVASTIGMINE PATCH REMOVAL TD SCH (09:37)
[2017-04-09] MEDS: HYDROCODONE/APAP 5mg/325mg TABLET PO SCH ×2 (12:03→20:35)
[2017-04-09] MEDS: HALOPERIDOL 0.5 MG TABLET PO SCH ×2 (12:32→20:35)
--- NOTE | 2017-04-09 20:03 | Neuropsych Progress Note ---
[facility] Subjective Date: 04/10/17 - Sujective/Severity of Illness Medications: Hydrocodone Bitart/Acetaminophen ([place] 5/325) 0.5 tab PO BID [facility] Last Admin: 04/09/17 12:03 Dose: 0.5 tab Hydrocodone Bitart/Acetaminophen ([place] 5/325) 0.5 tab PO Q8H PRN PRN Reason: Pain Last Admin: 04/09/17 17:01 Dose: 0.5 tab Aspirin (Asa) 81 mg PO DAILY [facility] Last Admin: 04/09/17 08:37 Dose: 81 mg Bisacodyl (Dulcolax) 10 mg PO DAILY PRN PRN Reason: Constipation Last Admin: 04/05/17 08:00 Dose: 10 mg Carbamide Peroxide (Debrox) 5 - 10 drops EACH EAR PRN PRN PRN Reason: wax build up Cyanocobalamin (Vit. B-12) 1,000 mcg PO DAILY [facility] Last Admin: 04/07/17 08:03 Dose: 1,000 mcg Gabapentin (Neurontin) 100 mg PO DAILY [facility] Last Admin: 04/09/17 08:37 Dose: 100 mg Haloperidol (Haldol) 1 mg PO Q6H PRN PRN Reason: Extreme agitation Last Admin: 04/07/17 16:00 Dose: 1 mg Haloperidol (Haldol) 0.5 mg PO 13,21 [facility] Last Admin: 04/09/17 12:32 Dose: 0.5 mg Haloperidol (Haldol) 1 mg PO 0630 [facility] Last Admin: 04/09/17 05:59 Dose: 1 mg Haloperidol Lactate (Haldol) 1 mg IM Q6H PRN PRN Reason: Extreme agitation Last Admin: 04/08/17 09:20 Dose: 1 mg Levothyroxine Sodium (Synthroid) 75 mcg PO ACB [facility] Last Admin: 04/09/17 05:59 Dose: 75 mcg Lidocaine (Lidoderm) 1 patch TOP DAILY [facility] Last Admin: 04/09/17 09:37 Dose: 1 patch Lidocaine HCl/Dextrose (Lidoderm Patch Removal) 1 removal TOP 2100 [facility] Last Admin: 04/08/17 21:01 Dose: 1 removal Loperamide HCl (Imodium) 2 mg PO PRN PRN PRN Reason: Loose stools Lorazepam (Ativan Inj) 0.5 mg IM Q6H PRN PRN Reason: Extreme agitation Last Admin: 04/08/17 10:20 Dose: 0.5 mg Lorazepam (Ativan) 0.5 mg PO Q6H PRN PRN Reason: Extreme agitation Last Admin: 04/06/17 08:27 Dose: 0.5 mg Magnesium Hydroxide (Mom) 30 ml PO PRN PRN PRN Reason: Constipation Rivastigmine (Exelon Patch) 13.3 mg TD DAILY [facility] Last Admin: 04/09/17 09:36 Dose: 13.3 mg Rivastigmine (Exelon Patch Removal) 1 removal TD DAILY [facility] Last Admin: 04/09/17 09:37 Dose: 1 removal Trazodone HCl (Desyrel) 50 mg PO HS [facility] Last Admin: 04/08/17 20:59 Dose: 50 mg Subjective: Patient seen and chart reviewed. Case discussed with treatment team. Patient is sleeping soundly during time of rounds. Nursing staff report patient has been improving overall but still inconsistently adherent with medications and reporting pain - has scheduled [place] as well as Lidoderm patch. Patient slept 9+ hours overnight. BP intermittently elevated; otherwise WNL - due to pain? Appetite has been limited. Psychotropic PRNs required in the past 24 hours: None. MSE below based on last interaction with patient. Start Time: 13:40 Stop Time: 14:00 Mental Status Exam Vitals: Last Vital Signs Temp 98.8 F 04/09/17 15:29 Pulse 74 04/09/17 15:29 Resp 16 04/09/17 15:29 BP 149/71 H 04/09/17 15:29 Pulse Ox 95 04/09/17 15:29 Height: 1.68 m Weight: 54.1 kg - Mental Status Exam Muscle Strength/Tone: Normal Dressing: Casual Grooming: Good Attitude: Cooperative Motor Activity: Restless (related to pain?) Eye Contact: Good Speech: Slowed Volume: Normal Rhythm: Mumbled, Other (unable to assess due to sedation) Orientation: Disoriented to time, Disoriented to place, Disoriented to situation , Oriented to person Mood: Anxious (labile affect - improving per staff) Rate of Thoughts: Delayed Thought Organization: Confused Associations: Illogical Abstract Reasoning: Poor abstract reasoning Thought Content: Paranoia, Somatic Concerns Perception/Psychotic: Perception Normal Language: Naming Impaired Fund of Knowledge: Poor fund of knowledge Memory: Poor-immediate, Poor-recent Suicidal Ideation: Denies Homicidal Ideation: Denies Insight: Impaired Judgement: Impaired Impulse Control: Fair - Laboratory Result Diagrams: 04/07/17 06:35 04/07/17 06:35 Assessment and Plan (1) Suicidal ideation Current visit: Yes Status: Resolved (2) Psychosis Qualifiers: Psychosis type: unspecified psychosis type Qualified Code(s): F29 - Unspecified psychosis not due to a substance or known physiological condition Current visit: Yes Status: Acute (3) Dementia with behavioral disturbance Current visit: Yes Status: Acute (4) UTI (urinary tract infection) Current visit: Yes Status: Acute (5) Paroxysmal A-fib Current visit: Yes Status: Acute (6) Chronic kidney disease Current visit: Yes Status: Acute (7) Congestive heart disease Current visit: Yes Status: Acute (8) Hyperlipidemia Current visit: Yes Status: Acute (9) History of TIA (transient ischemic attack) Current visit: Yes Status: Acute Hospital Course Summary Disclaimer: The visit summary below is not to be considered part of the above Progress Note. Hospital Course: 04/01/17 Impression Dementia with behavior UTI- POA diagnosed on 03/31 while getting clearance at [place] emergency room. Started on Macrobid Paroxysmal atrial fibrillation Hypertension CKD Congestive heart failure Hyperlipidemia History of TIA Plan Agree with admission to [facility] under the care of Dr. Ramirez for further psychiatric evaluation and treatment. We will continue with treatment of acute urinary tract infection on Macrobid twice a day through 04/07/17 Chronic medications reviewed. It does not appear that patient is on chronic anticoagulation for paroxysmal atrial fibrillation. She does take a baby aspirin daily. Admission labs from this morning are reviewed. TSH is slightly elevated at 5.32. Would recommend following this in the outpatient setting, as this can elevate secondary to antipsychotic medications. Encourage patient to participate in unit activities and provide a safe environment. Hospital services will continue to follow patient in medical management. Existing comorbidities during his stay on the [facility]. At time of discharge medical care is to return back to primary care provider in [place], [place], Dr. Riri Dallas 04/02/17 Psych: Patient improving from admission but continues to have mood lability, SI resolving - continue current care, monitor mood and behavior and discuss with DPOA whether antipsychotic will be beneficial. Calms well with Ativan though can exacerbate confusion, increase fall risk. 11/30/17- Overall doing well. Continues on Macrobid through 04/07 for tx of UTI. Monitor blood pressure. 04/03/17 Psych: Will plan to start Haldol 0.5mg PO BID to target behaviors after obtaining consent from DPOA. 04/04/17 18:10 D/C Seroquel. Haldol 0.5mg PO BID 04/05/17 10:25 Some agitation at times. Continue Haldol 04/05/17 14:55 04/05/17 Continues on Macrobid for treatment of UTI. Course complete on 04/07. Continue current medications for BP, Atrial Fib. No anticoagulation given fall risk. Behaviors remain an issue- psych adjusting meds. Labs ordered for Friday to assess stability. Need to recheck TSH when stable outpatient. Monitor for pain with medication adjustments of [place]. Continue Gabapentin. 04/06/17 11:09 Increase Haldol to 1mg PO BID 04/07/17 Psych: Has not required any PRNs this morning - continue to monitor response since increasing Haldol yesterday. Ordered Lidoderm patch to target pain. 04/08/17 Psych: Will continue Haldol 1mg PO q AM and split later dose to 0.5mg at 1300 and 0.5mg at HS; monitor response. Will also attempt to alleviate pain that may be contributing to agitation while minimizing narcotic use. 04/09/17 Psych: Patient improving overall - may consider whether to give IM Haldol if she refuses PO; will discuss with staff.
[2017-04-09] MEDS: LIDOCAINE PATCH REMOVAL TOP SCH (20:35)
[2017-04-09] MEDS: TRAZODONE 50 MG TABLET PO SCH (20:35)
[2017-04-10] MEDS: HYDROCODONE/APAP 5mg/325mg TABLET PO PRN (02:18)
[2017-04-10] MEDS: HALOPERIDOL 1 MG TABLET PO SCH (06:18)
[2017-04-10] MEDS: LEVOTHYROXINE 75 MCG TABLET PO SCH (06:18)
[2017-04-10] MEDS: LIDOCAINE 5% PATCH TOP SCH (08:04)
[2017-04-10] MEDS: GABAPENTIN 100 MG CAPSULE PO SCH (08:04)
[2017-04-10] MEDS: RIVASTIGMINE 13.3 MG/24 HR PATCH TD SCH (08:04)
[2017-04-10] MEDS: ASPIRIN 81 MG CHEWABLE TABLET PO SCH (08:04)
[2017-04-10] MEDS: HYDROCODONE/APAP 5mg/325mg TABLET PO SCH ×2 (08:05→20:17)
[2017-04-10] MEDS: RIVASTIGMINE PATCH REMOVAL TD SCH (08:06)
--- NOTE | 2017-04-10 09:19 | Progress Note ---
Progress Note: Chart reviewed. Labs stable. BP's slightly elevated, but acceptable in this 86 yo patient. Reviewed med administration in re: to [place]. It appears the past day or two her pain has been reasonable. Could consider routine acetaminophen if she is frequently needing the PRN [place] or is having continued/increased complaints of pain. At this time, this doesn't appear necessary.
--- NOTE | 2017-04-10 10:31 | Neuropsych Progress Note ---
[facility] Subjective Date: 04/10/17 - Sujective/Severity of Illness Medications: Hydrocodone Bitart/Acetaminophen ([place] 5/325) 0.5 tab PO BID [facility] Last Admin: 04/10/17 08:05 Dose: 0.5 tab Hydrocodone Bitart/Acetaminophen ([place] 5/325) 0.5 tab PO Q8H PRN PRN Reason: Pain Last Admin: 04/10/17 02:18 Dose: 0.5 tab Aspirin (Asa) 81 mg PO DAILY [facility] Last Admin: 04/10/17 08:04 Dose: 81 mg Bisacodyl (Dulcolax) 10 mg PO DAILY PRN PRN Reason: Constipation Last Admin: 04/05/17 08:00 Dose: 10 mg Carbamide Peroxide (Debrox) 5 - 10 drops EACH EAR PRN PRN PRN Reason: wax build up Cyanocobalamin (Vit. B-12) 1,000 mcg PO DAILY [facility] Last Admin: 04/07/17 08:03 Dose: 1,000 mcg Gabapentin (Neurontin) 100 mg PO DAILY [facility] Last Admin: 04/10/17 08:04 Dose: 100 mg Haloperidol (Haldol) 1 mg PO Q6H PRN PRN Reason: Extreme agitation Last Admin: 04/07/17 16:00 Dose: 1 mg Haloperidol (Haldol) 0.5 mg PO 13,21 [facility] Last Admin: 04/09/17 20:35 Dose: 0.5 mg Haloperidol (Haldol) 1 mg PO 0630 [facility] Last Admin: 04/10/17 06:18 Dose: 1 mg Haloperidol Lactate (Haldol) 1 mg IM Q6H PRN PRN Reason: Extreme agitation Last Admin: 04/08/17 09:20 Dose: 1 mg Levothyroxine Sodium (Synthroid) 75 mcg PO ACB [facility] Last Admin: 04/10/17 06:18 Dose: 75 mcg Lidocaine (Lidoderm) 1 patch TOP DAILY [facility] Last Admin: 04/10/17 08:04 Dose: 1 patch Lidocaine HCl/Dextrose (Lidoderm Patch Removal) 1 removal TOP 2100 [facility] Last Admin: 04/09/17 20:35 Dose: 1 removal Loperamide HCl (Imodium) 2 mg PO PRN PRN PRN Reason: Loose stools Lorazepam (Ativan Inj) 0.5 mg IM Q6H PRN PRN Reason: Extreme agitation Last Admin: 04/08/17 10:20 Dose: 0.5 mg Lorazepam (Ativan) 0.5 mg PO Q6H PRN PRN Reason: Extreme agitation Last Admin: 04/06/17 08:27 Dose: 0.5 mg Magnesium Hydroxide (Mom) 30 ml PO PRN PRN PRN Reason: Constipation Rivastigmine (Exelon Patch) 13.3 mg TD DAILY [facility] Last Admin: 04/10/17 08:04 Dose: 13.3 mg Rivastigmine (Exelon Patch Removal) 1 removal TD DAILY [facility] Last Admin: 04/10/17 08:06 Dose: Not Given Trazodone HCl (Desyrel) 50 mg PO HS [facility] Last Admin: 04/09/17 20:35 Dose: 50 mg Subjective: Patient seen and chart reviewed. Case discussed with treatment team. Patient is sleeping soundly during time of rounds; MSE below based on my last interaction with patient. Patient has repeatedly denied any SI, HI or AVH. Nursing staff report patient has been pleasant and cooperative overall, with no behavioral difficulties. She has been adherent with medications. Patient slept 10.25 hours overnight. VSS. Appetite has been limited. Psychotropic PRNs required in the past 24 hours: None. Start Time: 06:20 Stop Time: 06:40 Mental Status Exam Vitals: Last Vital Signs Temp 98.0 F 04/10/17 08:00 Pulse 72 04/10/17 08:00 Resp 20 04/10/17 08:00 BP 165/82 H 04/10/17 08:00 Pulse Ox 99 04/10/17 08:00 Height: 1.68 m Weight: 54.1 kg - Mental Status Exam Muscle Strength/Tone: Normal Dressing: Casual Grooming: Good Attitude: Cooperative Motor Activity: Normal Eye Contact: Good Speech: Slowed Volume: Normal Rhythm: Mumbled, Other (unable to assess due to sedation) Orientation: Disoriented to time, Disoriented to place, Disoriented to situation , Oriented to person Mood: Neutral Affect: Relaxed Rate of Thoughts: Delayed Thought Organization: Confused Associations: Illogical Abstract Reasoning: Poor abstract reasoning Thought Content: Somatic Concerns Perception/Psychotic: Perception Normal Language: Naming Impaired Fund of Knowledge: Poor fund of knowledge Memory: Poor-immediate, Poor-recent Suicidal Ideation: Denies Homicidal Ideation: Denies Insight: Impaired Judgement: Impaired Impulse Control: Fair - Laboratory Result Diagrams: 04/07/17 06:35 04/07/17 06:35 Assessment and Plan (1) Dementia with behavioral disturbance Current visit: Yes Status: Acute Alzheimer's vs. vascular, moderate (2) Suicidal ideation Current visit: Yes Status: Resolved (3) Psychosis Qualifiers: Psychosis type: unspecified psychosis type Qualified Code(s): F29 - Unspecified psychosis not due to a substance or known physiological condition Current visit: Yes Status: Resolved (4) UTI (urinary tract infection) Current visit: Yes Status: Acute (5) Paroxysmal A-fib Current visit: Yes Status: Acute (6) Chronic kidney disease Current visit: Yes Status: Acute (7) Congestive heart disease Current visit: Yes Status: Acute (8) Hyperlipidemia Current visit: Yes Status: Acute (9) History of TIA (transient ischemic attack) Current visit: Yes Status: Acute Hospital Course Summary Disclaimer: The visit summary below is not to be considered part of the above Progress Note. Hospital Course: 04/01/17 Impression Dementia with behavior UTI- POA diagnosed on 03/31 while getting clearance at [facility] emergency room. Started on Macrobid Paroxysmal atrial fibrillation Hypertension CKD Congestive heart failure Hyperlipidemia History of TIA Plan Agree with [facility] under the care of Dr. Ramirez for further psychiatric evaluation and treatment. We will continue with treatment of acute urinary tract infection on Macrobid twice a day through 04/07/17 Chronic medications reviewed. It does not appear that patient is on chronic anticoagulation for paroxysmal atrial fibrillation. She does take a baby aspirin daily. Admission labs from this morning are reviewed. TSH is slightly elevated at 5.32. Would recommend following this in the outpatient setting, as this can elevate secondary to antipsychotic medications. Encourage patient to participate in unit activities and provide a safe environment. Hospital services will continue to follow patient in medical management. Existing comorbidities during his stay [facility]. At time of discharge medical care is to return back to primary care provider in [place], [place], Dr. Riri Dallas 04/02/17 Psych: Patient improving from admission but continues to have mood lability, SI resolving - continue current care, monitor mood and behavior and discuss with DPOA whether antipsychotic will be beneficial. Calms well with Ativan though can exacerbate confusion, increase fall risk. 04/03/17- Overall doing well. Continues on Macrobid through 04/07 for tx of UTI. Monitor blood pressure. 04/03/17 Psych: Will plan to start Haldol 0.5mg PO BID to target behaviors after obtaining consent from DPOA. 04/04/17 18:10 D/C Seroquel. Haldol 0.5mg PO BID 04/05/17 10:25 Some agitation at times. Continue Haldol 04/05/17 14:55 04/05/17 Continues on Macrobid for treatment of UTI. Course complete on 04/07. Continue current medications for BP, Atrial Fib. No anticoagulation given fall risk. Behaviors remain an issue- psych adjusting meds. Labs ordered for Friday to assess stability. Need to recheck TSH when stable outpatient. Monitor for pain with medication adjustments of [place]. Continue Gabapentin. 04/06/17 11:09 Increase Haldol to 1mg PO BID 04/07/17 Psych: Has not required any PRNs this morning - continue to monitor response since increasing Haldol yesterday. Ordered Lidoderm patch to target pain. 04/08/17 Psych: Will continue Haldol 1mg PO q AM and split later dose to 0.5mg at 1300 and 0.5mg at HS; monitor response. Will also attempt to alleviate pain that may be contributing to agitation while minimizing narcotic use. 04/09/17 Psych: Patient improving overall - may consider whether to give IM Haldol if she refuses PO; will discuss with staff. 04/10/17 Psych: Patient is doing quite well and hasn't needed IM medication. Plan to network with LTC facility regarding discharge.
--- NOTE | 2017-04-10 10:42 | Extended Care Facility Orders ---
Admission Orders Admit to:: [facility] Allergies/Adverse Reactions: Allergies rofecoxib [From Vioxx] Allergy (Verified 04/01/17 04:23) Sulfa (Sulfonamide Antibiotics) Allergy (Verified 04/01/17 04:23) trimethoprim Allergy (Verified 04/01/17 04:23) Admitting Diagnosis: Dementia with behavioral disturbance Admitting Physician: Karina Ramirez MD Attending Physician: Karina Ramirez MD Code Status: Do Not Resuscitate Anticiapted Length of Stay: greater than 30 days Rehab Potential: fair Rehab Prognosis: fair Diet: 04/01/17 Breakfast Regular Diet [DIET] Diet Modifications: Wound/Incision Care: N/A May use Facility Protocol or Standing Orders: Yes May have flu vaccine: Yes Evaluations/Treatment: Psychiatric Group Home Certification: I certify that SNF services are required to be given on an Inpatient basis because of the patients need for intermediate care on a continuing basis for the condition(s) for which he/she received inpatient hospital services prior to his/her transfer to the SNF. SNF inpatient care is necessary for the following reasons Indication for Group Home: Not Applicable - Additional Information
[2017-04-10] MEDS: HALOPERIDOL 0.5 MG TABLET PO SCH ×2 (13:01→20:17)
[2017-04-10] MEDS: TRAZODONE 50 MG TABLET PO SCH (20:17)
[2017-04-11 00:46] VITALS: O2SAT 93
[2017-04-11] MEDS: LIDOCAINE PATCH REMOVAL TOP SCH (02:31)
[2017-04-11] MEDS: HYDROCODONE/APAP 5mg/325mg TABLET PO PRN (02:31)
[2017-04-11] MEDS: HALOPERIDOL 1 MG TABLET PO SCH (05:30)
[2017-04-11] MEDS: LEVOTHYROXINE 75 MCG TABLET PO SCH (05:30)
[2017-04-11] MEDS: ASPIRIN 81 MG CHEWABLE TABLET PO SCH (08:09)
[2017-04-11] MEDS: GABAPENTIN 100 MG CAPSULE PO SCH (08:09)
[2017-04-11] MEDS: LIDOCAINE 5% PATCH TOP SCH (08:09)
[2017-04-11] MEDS: HYDROCODONE/APAP 5mg/325mg TABLET PO SCH (08:09)
[2017-04-11] MEDS: RIVASTIGMINE PATCH REMOVAL TD SCH (08:10)
[2017-04-11] MEDS: RIVASTIGMINE 13.3 MG/24 HR PATCH TD SCH (08:10)
[2017-04-11 08:35] VITALS: BP 155/82; PULSE 93; RESP 16; TEMP 96.8
--- NOTE | 2017-04-11 09:12 | Progress Note ---
- Date 04/11/17 Subjective: Annie Dotson is seen this morning in follow up for her dementia with behavioral disturbance. She is seen in the dining room with her breakfast in front of her but admits that she has not appetite today. She denies any other complaints including no chest pain, shortness of breath, abdominal pain, nausea, vomiting or dysuria. Nursing reports that she is scheduled for discharge today but did have some agitation and restlessness yesterday afternoon which may delay her discharge. No behaviors over night and she has been cooperative with cares today. No new labs. Bowels are moving. Objective Vital signs: Temperature 96.8 F 04/11/17 08:00 Pulse Rate 93 04/11/17 08:00 Respiratory Rate 16 04/11/17 08:00 Blood Pressure 155/82 H 04/11/17 08:00 Pulse Oximetry 93 04/11/17 08:00 Height/Weight/BMI: Height 5 ft 6 in Weight 119 lb 4.321 oz Body Mass Index 18.6 Comments: Sitting in dining room peacefully, poking at her food but not eating. A& O x1 ( self). - Constitutional Present: no acute distress, well nourished, well developed, thin, cooperative - Routine HEENT Exam Head: Present: normocephalic, atraumatic Eye: Present: PERRL. Absent: conjunctival icterus ENT: Present: mucous membranes moist - Routine Respiratory Exam Present: CTA bilaterally. Absent: rhonchi, stridor, wheezes, crackles - Routine Cardiovascular Exam Present: RRR, S1, S2, murmur - Routine Abdominal Exam Present: soft, normoactive bowel sounds, non distended, non tender. Absent: rebound, guarding - Routine Extremities Exam Present: no edema, non tender, pulses intact Comments: MADDI hose on bilaterally. - Routine Back/Spine/Pelvis Exam Back/Spine: Present: full ROM, kyphosis. Absent: vertebral tenderness - Routine Musculoskeletal Exam Musculoskeletal: Present: no clubbing or cyanosis, moving extremities well - Routine Skin Exam Present: intact, dry, warm. Absent: jaundice Comments: afebrile. - Routine Neurological Exam Present: alert (orientated to self only.), moving all extremities, hearing grossly intact, normal speech (soft spoken). Absent: hemineglect, facial asymmetry - Routine Lymphatic Exam Lymphatic: Absent: lymphedema - Routine Psychiatric Exam Present: cooperative Results - Labs CBC & Chem 7: 04/07/17 06:35 04/07/17 06:35 Assessment and Plan (1) Dementia with behavioral disturbance Current visit: Yes Status: Acute Assessment and Plan: Impression Dementia with behavior UTI- POA diagnosed on 03/31 while getting clearance at [facility] emergency room. Started on Macrobid Paroxysmal atrial fibrillation Hypertension CKD Congestive heart failure Hyperlipidemia History of TIA Plan - 04/11/17 ([place]) Overall, Annie Dotson appears to be medically stable and anticipate discharge in near future. Discharge tentatively planned for today, but patient exhibited agitation and restlessness yesterday afternoon which may delay discharge. Continue psychiatric care per team. Macrobid treatment for UTI completed on 04/07/17. Continue to monitor closely for signs of repeat infection. No fever or dysuria. Blood pressure better controlled. Continue current medications. Due to fall risk, no anticoagulation for a-fib. Currently sinus rhythm on auscultation. Recommend TSH to be check as outpatient. TSH on 04/01/17 was 5.32. Continue Synthroid 75 mcg daily. Continue to monitor for pain with medication adjustments of [place]. Continue Gabapentin. DVT Prophylaxis: MADDI [place] Resuscitation Status: Do Not Resuscitate - Time spent with patient Time with patient PN: 25 minutes - Physician Narriative Physician: other (Dr. Miriam Elkins) Hospital Course Summary Disclaimer: The visit summary below is not to be considered part of the above Progress Note. Hospital Course: 04/01/17 Impression Dementia with behavior UTI- POA diagnosed on 03/31 while getting clearance at [facility] emergency room. Started on Macrobid Paroxysmal atrial fibrillation Hypertension CKD Congestive heart failure Hyperlipidemia History of TIA Plan Agree with [facility] under the care of Dr. Ramirez for further psychiatric evaluation and treatment. We will continue with treatment of acute urinary tract infection on Macrobid twice a day through 04/07/17 Chronic medications reviewed. It does not appear that patient is on chronic anticoagulation for paroxysmal atrial fibrillation. She does take a baby aspirin daily. Admission labs from this morning are reviewed. TSH is slightly elevated at 5.32. Would recommend following this in the outpatient setting, as this can elevate secondary to antipsychotic medications. Encourage patient to participate in unit activities and provide a safe environment. Hospital services will continue to follow patient in medical management. Existing comorbidities during [facility] stay [facility]. At time of discharge medical care is to return back to primary care provider in [place], [place], Dr. Riri Dallas 04/02/17 Psych: Patient improving from admission but continues to have mood lability, SI resolving - continue current care, monitor mood and behavior and discuss with DPOA whether antipsychotic will be beneficial. Calms well with Ativan though can exacerbate confusion, increase fall risk. 04/03/17- Overall doing well. Continues on Macrobid through 04/07 for tx of UTI. Monitor blood pressure. 04/03/17 Psych: Will plan to start Haldol 0.5mg PO BID to target behaviors after obtaining consent from DPOA. 04/04/17 18:10 D/C Seroquel. Haldol 0.5mg PO BID 04/05/17 10:25 Some agitation at times. Continue Haldol 04/05/17 14:55 04/05/17 Continues on Macrobid for treatment of UTI. Course complete on 04/07. Continue current medications for BP, Atrial Fib. No anticoagulation given fall risk. Behaviors remain an issue- psych adjusting meds. Labs ordered for Friday to assess stability. Need to recheck TSH when stable outpatient. Monitor for pain with medication adjustments of [place]. Continue Gabapentin. 04/06/17 11:09 Increase Haldol to 1mg PO BID 04/07/17 Psych: Has not required any PRNs this morning - continue to monitor response since increasing Haldol yesterday. Ordered Lidoderm patch to target pain. 04/08/17 Psych: Will continue Haldol 1mg PO q AM and split later dose to 0.5mg at 1300 and 0.5mg at HS; monitor response. Will also attempt to alleviate pain that may be contributing to agitation while minimizing narcotic use. 04/09/17 Psych: Patient improving overall - may consider whether to give IM Haldol if she refuses PO; will discuss with staff. 04/10/17 Psych: Patient is doing quite well and hasn't needed IM medication. Plan to network with LTC facility regarding discharge. Plan - 04/11/17 ([place]) Overall, Annie Dotson appears to be medically stable and anticipate discharge in near future. Discharge tentatively planned for today, but patient exhibited agitation and restlessness yesterday afternoon which may delay discharge. Continue psychiatric care per team. Macrobid treatment for UTI completed on 04/07/17. Continue to monitor closely for signs of repeat infection. No fever or dysuria. Blood pressure better controlled. Continue current medications. Due to fall risk, no anticoagulation for a-fib. Currently sinus rhythm on auscultation. Recommend TSH to be check as outpatient. TSH on 04/01/17 was 5.32. Continue Synthroid 75 mcg daily. Continue to monitor for pain with medication adjustments of [place]. Continue Gabapentin.
--- NOTE | 2017-04-11 11:22 | Neuropsychiatric Disch Summary ---
Discharge Information Date of admission: 04/01/17 01:17 Attending Physician: Karina Ramirez MD Consults: 04/01/17 06:19 Case Management Consult [CONS] Routine Reason For Exam: Optimization of medical comorbidities Physician Consult [CONS] Routine Consulting Provider: Jorge Miller Reason For Exam: Optimization of medical comorbidities Ordering Provider has Notified Diver Pumper: No Comment: Nursing, please notify - Discharge Diagnosis (1) Dementia with behavioral disturbance Status: Chronic (2) Suicidal ideation Status: Resolved (3) Psychosis Status: Resolved (4) UTI (urinary tract infection) Status: Resolved (5) Paroxysmal A-fib Status: Acute (6) Chronic kidney disease Status: Chronic (7) Congestive heart disease Status: Chronic (8) Hyperlipidemia Status: Chronic (9) History of TIA (transient ischemic attack) Status: Inactive Major neurocognitive disorder with behavioral disturbance, vascular, moderate - with behavioral disturbance - Laboratory Labs: 04/07/17 06:35 04/07/17 06:35 Date of Admission: 04/01/17 01:17 Chief complaint: Agitation, SI, HI History of Present Illness: Patient is an 86-year-old female who was admitted to [facility] overnight (04/01/17) from [facility] in [place], [place] due to increased verbal and physical aggression x 4 weeks. She wrapped a phone cord around her neck on 03/31 stating she wanted to . Patient was quite agitated last night when she was admitted, requiring Haldol 1mg IM and restraints. Patient reportedly calmed this morning until become agitated again this afternoon requiring another 1mg of Haldol IM. She was thus quite sedated and could not participate in interview with me today. Per hospitalist: "She was taken to [place] emergency room for acute medical evaluation. Her CBC was found to be normal, electrolytes and renal function reviewed. Sodium 136, potassium 3 0.6, BUNs 20, crit and 0.8. Her INR is 1.0. Her urinalysis did indicate, 1+ protein, trace ketones, 2+ blood, 2+ leukocyte esterase, greater than 50 rbc's and greater than 50 WBCs with many bacteria present. Patient was started on oral Macrobid at that time." Hospital Course This is a general summary of the patient's hospital course. For more details refer to the complete medical record. Hospital course: 04/01/17 Impression Dementia with behavior UTI- POA diagnosed on 03/31 while getting clearance at [place] emergency room. Started on Macrobid Paroxysmal atrial fibrillation Hypertension CKD Congestive heart failure Hyperlipidemia History of TIA Plan Agree with admission to [facility] under the care of Dr. Ramirez for further psychiatric evaluation and treatment. We will continue with treatment of acute urinary tract infection on Macrobid twice a day through 04/07/17 Chronic medications reviewed. It does not appear that patient is on chronic anticoagulation for paroxysmal atrial fibrillation. She does take a baby aspirin daily. Admission labs from this morning are reviewed. TSH is slightly elevated at 5.32. Would recommend following this in the outpatient setting, as this can elevate secondary to antipsychotic medications. Encourage patient to participate in unit activities and provide a safe environment. Hospital services will continue to follow patient in medical management. Existing comorbidities during his stay on the [facility]. At time of discharge medical care is to return back to primary care provider in [place], [place], Dr. Riri Dallas 04/02/17 Psych: Patient improving from admission but continues to have mood lability, SI resolving - continue current care, monitor mood and behavior and discuss with DPOA whether antipsychotic will be beneficial. Calms well with Ativan though can exacerbate confusion, increase fall risk. 04/03/17- Overall doing well. Continues on Macrobid through 04/07 for tx of UTI. Monitor blood pressure. 04/03/17 Psych: Will plan to start Haldol 0.5mg PO BID to target behaviors after obtaining consent from DPOA. 04/04/17 18:10 D/C Seroquel. Haldol 0.5mg PO BID 04/05/17 10:25 Some agitation at times. Continue Haldol 04/05/17 14:55 04/05/17 Continues on Macrobid for treatment of UTI. Course complete on 04/07. Continue current medications for BP, Atrial Fib. No anticoagulation given fall risk. Behaviors remain an issue- psych adjusting meds. Labs ordered for Friday to assess stability. Need to recheck TSH when stable outpatient. Monitor for pain with medication adjustments of [place]. Continue Gabapentin. 04/06/17 11:09 Increase Haldol to 1mg PO BID 04/07/17 Psych: Has not required any PRNs this morning - continue to monitor response since increasing Haldol yesterday. Ordered Lidoderm patch to target pain. 04/08/17 Psych: Will continue Haldol 1mg PO q AM and split later dose to 0.5mg at 1300 and 0.5mg at HS; monitor response. Will also attempt to alleviate pain that may be contributing to agitation while minimizing narcotic use. 04/09/17 Psych: Patient improving overall - may consider whether to give IM Haldol if she refuses PO; will discuss with staff. 04/10/17 Psych: Patient is doing quite well and hasn't needed IM medication. Plan to network with LTC facility regarding discharge. Plan - 04/11/17 ([place]) Overall, Annie Dotson appears to be medically stable and anticipate discharge in near future. Discharge tentatively planned for today, but patient exhibited agitation and restlessness yesterday afternoon which may delay discharge. Continue psychiatric care per team. Macrobid treatment for UTI completed on 04/07/17. Continue to monitor closely for signs of repeat infection. No fever or dysuria. Blood pressure better controlled. Continue current medications. Due to fall risk, no anticoagulation for a-fib. Currently sinus rhythm on auscultation. Recommend TSH to be check as outpatient. TSH on 04/01/17 was 5.32. Continue Synthroid 75 mcg daily. Continue to monitor for pain with medication adjustments of [place]. Continue Gabapentin. Discharge Plan - Med Rec/Dispo Referrals/Follow Up: Helen Dallas MD [Other] (Dr. Kaela Dallas will see patient on rounds at the facility for Hosp. follow-up. ) Jemma Robles [Other] ([facility] on 04/17/17 at 10:30 am for Mental Health follow-up. . If unable to keep the appt., call a day ahead to reschedule your appt.. Bring Insurance cards with you. 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 IN CASE OF PSYCHIATRIC EMERGENCY, CONTACT [facility] STA[facility] AT [phone] ( available 24 hrs daily). Prescriptions: New Bisacodyl EC TAB [Dulcolax] 10 mg PO DAILY PRN tab PRN Reason: Constipation Haloperidol [Haldol] 1 mg PO 0630 tab Hydrocodone/APAP 5/325 [[place] 5/325] 0.5 tab PO Q8H PRN tab PRN Reason: Pain Hydrocodone/APAP 5/325 [[place] 5/325] 0.5 tab PO BID tab Lidocaine 5% Patch [Lidoderm] 1 patch TOP DAILY patch Rivastigmine Patch [Exelon Patch] 13.3 mg TD DAILY patch Rivastigmine Patch Removal [Exelon Patch Removal] 1 removal TD DAILY patch Atorvastatin [Lipitor] 1 tab PO HS #30 tab Haloperidol [Haldol] 0.5 mg PO 13,21 tab Lidocaine Patch Removal [Lidoderm Patch Removal] 1 removal TOP 2100 patch Continue Carbamide Peroxide Ear Drops [Debrox] 5 - 10 drops EACH EAR PRN PRN PRN Reason: wax build up Milk of Magnesia [Mom] 30 ml PO PRN PRN PRN Reason: Constipation Levothyroxine Tab [Synthroid] 75 mcg PO ACB Aspirin Chewable [ASA] 81 mg PO DAILY Gabapentin [Neurontin] 100 mg PO DAILY Loperamide HCl [Imodium A-D] 2 mg PO PRN PRN MDD 4 doses PRN Reason: Loose Stools Trazodone [Desyrel] 50 mg PO HS Cyanocobalamin (Vitamin B-12) [Vitamin B-12] 1 tab PO DAILY Discontinued Quetiapine XR [SEROquel XR] 150 mg PO BID Hydrocodone/APAP 5/325 [[place] 5/325] 1 tab PO BID PRN PRN Reason: Moderate Pain Hydrocodone/APAP 5/325 [[place] 5/325] 1 tab PO TID Amoxicillin 2,000 mg PO PRN PRN PRN Reason: prophylactic Quetiapine [Seroquel] 12.5 mg PO Q6HR PRN PRN Reason: increased anxiety/agitation Fluoxetine HCl [Prozac] 40 mg PO DAILY Rivastigmine Patch [Exelon Patch] 13.3 mg TD DAILY Atorvastatin [Lipitor] 10 mg PO HS Ondansetron HCl [Zofran] 4 mg PO Q8HPRN PRN PRN Reason: nausea/vomiting - Disposition 04 To [facility] Home/Facility - Dismissal Complete Discharge Instructions are:: Complete
[2017-04-11] MEDS: HALOPERIDOL 0.5 MG TABLET PO SCH (12:14)
[2017-04-11] MEDS: LORazepam 0.5 MG TABLET PO PRN (12:14)
== END 2017-04-11 13:15 | DRG 57 ==
LOC: GEN 01:17
PROVIDERS: ADMIT Psychiatry & Neurology Psychiatry; ATTEND Psychiatry & Neurology Psychiatry